=== PATIENT | male | born 1935 | race Caucasian/White ===

== ENCOUNTER → 2016-10-17 | Outpatient (REF) | payer MEDICARE ==
[2016-10-17 19:22] LABS: ALBUMIN 3.9 GM/DL (3.2-5.2); ALBUMIN/GLOBULIN RATIO 1.11 (1.00-1.93); ALKALINE PHOSPHATASE 50 U/L (45-117); ALT/SGPT 73 U/L (12-78); ANION GAP 7 MEQ/L (8-16); AST/SGOT 49 U/L (15-37); BILIRUBIN,TOTAL 0.6 MG/DL (0.2-1.0); BLOOD UREA NITROGEN 15 MG/DL (7-18); CALCIUM LEVEL 9.8 MG/DL (8.8-10.2); CARBON DIOXIDE LEVEL 28 MEQ/L (21-32); CHLORIDE LEVEL 105 MEQ/L (98-107); CHOLESTEROL LEVEL 180 MG/DL (<200); CREATININE FOR GFR 1.05 MG/DL (0.70-1.30); FERRITIN 38 NG/ML (26-388); GLOMERULAR FILTRATION RATE > 60.0 (>35); GLUCOSE, FASTING 101 MG/DL (83-110); PERCENT SATURATION 33.7 % (19.7-37.4); POTASSIUM SERUM 4.7 MEQ/L (3.5-5.1); SODIUM LEVEL 140 MEQ/L (136-145); TOTAL IRON BINDING CAPACITY 353 UG/DL (250-450); TOTAL PROTEIN 7.4 GM/DL (6.4-8.2); TRIGLYCERIDES LEVEL 202 MG/DL (<150)
[2016-10-17 19:33] LABS: MEAN CORPUSCULAR HEMOGLOBIN 34.2 pg (27.0-33.0); MEAN CORPUSCULAR HGB CONC 33.2 g/dl (32.0-36.5); MEAN CORPUSCULAR VOLUME 102.8 fl (80.0-96.0); RED CELL DISTRIBUTION WIDTH 12.8 % (11.5-14.5); RETIC HEMOGLOBIN CONTENT CHr 33.4 PG (24-36); RETICULOCYTE % ADVIA2120 2.6 % (0.5-1.5); WHITE BLOOD COUNT 4.9 K/mm3 (4.0-10.0)
[2016-10-23 00:11] LABS: FREE KAPPA LIGHT CHAINS SERUM 19.28 mg/L (3.30-19.40); FREE LAMBDA LIGHT CHAINS SERUM 17.51 mg/L (5.71-26.30); KAPPA/LAMBDA RATIO SERUM 1.1 (0.26-1.65)
== END ==
LOC: M SFHCCAPE 07:42
PROVIDERS: ATTEND Family Medicine
DX: D50.9 Iron deficiency anemia, unspecified (principal); E78.2 Mixed hyperlipidemia; E74.9 Disorder of carbohydrate metabolism, unspecified; Z12.5 Encounter for screening for malignant neoplasm of prostate; Z79.899 Other long term (current) drug therapy
CPT/HCPCS: 36415; 80053; 80061; 82728; 83036; 83550; 83883; 85027; 85046; G0103

== ENCOUNTER → 2016-12-13 | Outpatient (CLI) | payer MEDICARE ==
[~2016-12-13] VITALS: Ht 177.8 cm; Wt 97.5 kg
[~2016-12-13] MED LIST: ASPI81TA85 PO; COLE625TAB PO; FLUTISP; LIDOCAINE 2% INJ 100 MG/5 ML SDV (FOR ANES.) As Ordered ONE; MULT1TAB10 PO; NS 1,000 ML IV ONE; PANT40TA2 PO; PROPOFOL 200 MG/20 ML VIAL As Ordered ONE; VITA500T3 PO; fentaNYL 100 MCG/2 ML INJECTION (J3010) As Ordered ONE
--- NOTE | 2016-12-13 10:27 | ROOR ---
Patient Name: Maxi Briceño Procedure Date: 12/13/2016 10:11 AM Date of : 1935 Age: 81 Room: [facility] Gender: Male Note Status: Finalized Procedure: Upper GI endoscopy Indications: Iron deficiency anemia Providers: Derrek Burns MD Referring MD: Jamie Paris MD Requesting Provider: Medicines: Monitored Anesthesia Care Complications: No immediate complications. Procedure: Pre-Anesthesia Assessment: - The heart rate, respiratory rate, oxygen saturations, blood pressure, adequacy of pulmonary ventilation, and response to care were monitored throughout the procedure. The Endoscope was introduced through the mouth, and advanced to the second part of duodenum. The upper GI endoscopy was accomplished without difficulty. The patient tolerated the procedure well. Findings: The Z-line was regular and was found 35 cm from the incisors. A medium-sized hiatal hernia was present. No other significant abnormalities were identified in a careful examination of the stomach. The exam of the duodenum was otherwise normal. Impression: - Z-line regular, 35 cm from the incisors. - Medium-sized hiatal hernia. - No specimens collected. - The examination was otherwise normal. Recommendation: - Patient has a contact number available for emergencies. The signs and symptoms of potential delayed complications were discussed with the patient. Return to normal activities tomorrow. Written discharge instructions were provided to the patient. - Discharge patient to home. - Follow an antireflux regimen. - Continue present medications. - Return to referring physician. - The findings and recommendations were discussed with the patient's family. Derrek Burns MD Derrek Burns MD 12/13/2016 10:26:42 AM This report has been signed electronically. Number of Addenda: 0 Note Initiated On: 12/13/2016 10:11 AM Estimated Blood Loss: Estimated blood loss: none.
--- NOTE | 2016-12-13 10:41 | ROOR ---
Patient Name: Maxi Briceño Procedure Date: 12/13/2016 10:11 AM Date of : 1935 Age: 81 Room: [facility] Gender: Male Note Status: Finalized Procedure: Total Colonoscopy to Cecum Indications: Iron deficiency anemia Providers: Derrek Burns MD Referring MD: Jamie Paris MD Requesting Provider: Medicines: Monitored Anesthesia Care Complications: No immediate complications. Procedure: Pre-Anesthesia Assessment: - The heart rate, respiratory rate, oxygen saturations, blood pressure, adequacy of pulmonary ventilation, and response to care were monitored throughout the procedure. The Colonoscope was introduced through the anus and advanced to the cecum, identified by appendiceal orifice and ileocecal valve. The colonoscopy was performed without difficulty. The patient tolerated the procedure well. The quality of the bowel preparation was excellent. Findings: The perianal and digital rectal examinations were normal. Non-bleeding internal hemorrhoids were found during retroflexion. The hemorrhoids were small and Grade I (internal hemorrhoids that do not prolapse). Multiple small and large-mouthed diverticula were found in the recto-sigmoid colon, sigmoid colon and descending colon. The exam was otherwise without abnormality on direct and retroflexion views. Impression: - Non-bleeding internal hemorrhoids. - Diverticulosis in the recto-sigmoid colon, in the sigmoid colon and in the descending colon. - The examination was otherwise normal on direct and retroflexion views. - No specimens collected. - The exam was otherwise normal to the cecum. Recommendation: - Patient has a contact number available for emergencies. The signs and symptoms of potential delayed complications were discussed with the patient. Return to normal activities tomorrow. Written discharge instructions were provided to the patient. - High fiber diet. - Discharge patient to home. - Continue present medications. - Repeat colonoscopy for symptoms only. - Return to referring physician. - The findings and recommendations were discussed with the patient's family. Derrek Burns MD Derrek Burns MD 12/13/2016 10:41:14 AM This report has been signed electronically. Number of Addenda: 0 Note Initiated On: 12/13/2016 10:11 AM Estimated Blood Loss: Estimated blood loss: none.
[2016-12-13 11:00] VITALS: BP 137/67
== END ==
LOC: M OPP 09:34
PROVIDERS: ATTEND Internal Medicine Gastroenterology
DX: Z12.11 Encounter for screening for malignant neoplasm of colon (principal); K64.0 First degree hemorrhoids; K57.30 Diverticulosis of large intestine without perforation or abscess without bleeding; D50.9 Iron deficiency anemia, unspecified; K44.9 Diaphragmatic hernia without obstruction or gangrene; K21.9 Gastro-esophageal reflux disease without esophagitis; E78.5 Hyperlipidemia, unspecified; Z85.828 Personal history of other malignant neoplasm of skin; Z87.891 Personal history of nicotine dependence; M19.90 Unspecified osteoarthritis, unspecified site; Z79.82 Long term (current) use of aspirin; Z79.899 Other long term (current) drug therapy; Z88.2 Allergy status to sulfonamides; Z88.8 Allergy status to other drugs, medicaments and biological substances
CPT/HCPCS: 43235; 45378; J3010

== ENCOUNTER → 2017-10-28 | Outpatient (REF) | payer MEDICARE ==
[2017-10-28 11:24] LABS: HEMATOCRIT 38.3 % (42.0-52.0); HEMOGLOBIN 12.5 g/dl (13.5-17.5); MEAN CORPUSCULAR HEMOGLOBIN 30.8 pg (27.0-33.0); MEAN CORPUSCULAR HGB CONC 32.6 g/dl (32.0-36.5); MEAN CORPUSCULAR VOLUME 94.3 fl (80.0-96.0); PLATELET COUNT, AUTOMATED 210 10^3/uL (150-450); RED BLOOD COUNT 4.06 10^6/uL (4.30-6.10); RED CELL DISTRIBUTION WIDTH 12.1 % (11.5-14.5); RETIC HEMOGLOBIN EQUIVALENT 33.7 pg (24-36); RETICULOCYTE # 77.1 10^9/L (17-77); RETICULOCYTE % 1.9 % (0.5-1.5); WHITE BLOOD COUNT 6.2 10^3/uL (4.0-10.0)
[2017-10-28 11:31] LABS: ALBUMIN 3.6 GM/DL (3.2-5.2); ALBUMIN/GLOBULIN RATIO 0.97 (1.00-1.93); ALKALINE PHOSPHATASE 46 U/L (45-117); ALT/SGPT 51 U/L (12-78); ANION GAP 6 MEQ/L (8-16); AST/SGOT 36 U/L (7-37); BILIRUBIN,TOTAL 0.4 MG/DL (0.2-1.0); BLOOD UREA NITROGEN 13 MG/DL (7-18); CALCIUM LEVEL 9.6 MG/DL (8.8-10.2); CARBON DIOXIDE LEVEL 29 MEQ/L (21-32); CHLORIDE LEVEL 108 MEQ/L (98-107); CHOLESTEROL LEVEL 183 MG/DL (<200); CHOLESTEROL RISK RATIO 4.463 (<5); CREATININE FOR GFR 1.01 MG/DL (0.70-1.30); FERRITIN 14 NG/ML (26-388); GLOMERULAR FILTRATION RATE > 60.0 (>35); GLUCOSE, FASTING 86 MG/DL (70-100); HDL CHOLESTEROL 41 MG/DL (>40); IRON (FE) 46 UG/DL (65-175); LDL CHOLESTEROL 108.6 MG/DL (<100); NON-HDL-C 142 MG/DL; PERCENT SATURATION 12.2 % (19.7-50.0); SODIUM LEVEL 143 MEQ/L (136-145); TOTAL IRON BINDING CAPACITY 377 UG/DL (250-450); TOTAL PROTEIN 7.3 GM/DL (6.4-8.2); TRIGLYCERIDES LEVEL 167 MG/DL (<150)
== END ==
LOC: M SFHCCLAY 07:36
DX: D64.9 Anemia, unspecified (principal); E78.2 Mixed hyperlipidemia
CPT/HCPCS: 83550

== ENCOUNTER → 2018-09-17 | Outpatient (CLI) | payer MEDICARE ==
[~2018-09-17] MED LIST changes: +CVS1CAP2 PO; +ISOVUE-370 76% 125ML VIAL (Q9967 PER ML) As Ordered ONE; -LIDOCAINE 2% INJ 100 MG/5 ML SDV (FOR ANES.) As Ordered ONE; +LORA-674 PO; +MULT-40 PO; -NS 1,000 ML IV ONE; +OCUVTAB PO; -PANT40TA2 PO; +PANT40TA3 PO; -PROPOFOL 200 MG/20 ML VIAL As Ordered ONE; +RANI15TA PO; +RANI1SYP PO; -fentaNYL 100 MCG/2 ML INJECTION (J3010) As Ordered ONE
[2018-09-17 13:56] LABS: BLOOD UREA NITROGEN 12 MG/DL (7-18); GLOMERULAR FILTRATION RATE > 60.0 (>35)
--- NOTE | 2018-09-17 15:22 | REP ---
CT NECK WITH CONTRAST: HISTORY: Left ovarian cyst. CONTRAST: Isovue 370, 75 mL. The naso-, noelle-, and hypopharynx, larynx and subglottic trachea are normal in appearance. There is fatty replacement of the parotid glands. The submandibular and thyroid glands are normal in size and density. Small lymph nodes less than 1 cm in size are present in the internal jugular chains, posterior triangles, submandibular and submental areas. Degenerative change is present in the cervical spine. The lung apices are clear. Minimal mucosal thickening is present in the maxillary sinuses. IMPRESSION: There is no neck mass or adenopathy. Electronically Signed by Angel Owens MD 09/17/2018 03:24 P
== END ==
LOC: M RAD 12:43
PROVIDERS: ATTEND Otolaryngology
DX: R49.0 Dysphonia (principal); H60.12 Cellulitis of left external ear; M50.30 Other cervical disc degeneration, unspecified cervical region; J32.0 Chronic maxillary sinusitis
CPT/HCPCS: 36415; 70491; 82565; 84520; Q9967

== ENCOUNTER 2018-09-30 11:11 | Day surgery (SDC) | payer MEDICARE ==
[~2018-09-30] VITALS: Ht 177.8 cm; Wt 106.1 kg
[~2018-09-30 11:11] MED LIST changes: -ISOVUE-370 76% 125ML VIAL (Q9967 PER ML) As Ordered ONE; +LR 1,000 ML IV ONE; +dexameTHASONE 4 MG/ML 1ML VIAL (J1100) IV ONE
[2018-09-30] MEDS ORDERED: dexameTHASONE 4 MG/ML 1ML VIAL (J1100) As Ordered ONE (11:43)
[2018-09-30] MEDS ORDERED: LIDOCAINE 2% INJ 100 MG/5 ML SDV (FOR ANES.) As Ordered ONE (11:43)
[2018-09-30] MEDS ORDERED: ONDANSETRON 4MG/2ML VIAL (J2405) As Ordered ONE (11:43)
[2018-09-30] MEDS ORDERED: ROCURONIUM BROMIDE 50 MG/5 ML VIAL As Ordered ONE (11:43)
[2018-09-30] MEDS ORDERED: PROPOFOL 200 MG/20 ML VIAL As Ordered ONE (11:43)
[2018-09-30] MEDS ORDERED: METHYLENE BLUE 0.5% (5MG/ML) 10 ML AMP (PROVAYBLUE)(Q9968 PER 1MG) As Ordered ONE (12:07)
[2018-09-30] MEDS ORDERED: OXYMETAZOLINE NASAL SPRAY (AFRIN) As Ordered ONE (12:08)
[2018-09-30] MEDS ORDERED: LIDOCAINE W/EPINEPHRINE 1% 20ML VIAL As Ordered ONE (12:08)
[2018-09-30] MEDS ORDERED: fentaNYL 100 MCG/2 ML INJECTION (J3010) As Ordered ONE ×2 (12:13→13:10)
[2018-09-30] MEDS ORDERED: ePHEDrine SULFATE 25 MG/5 ML(5MG/ML) SYRINGE As Ordered ONE (12:48)
[2018-09-30] MEDS ORDERED: BACITRACIN OINT 30GM As Ordered ONE (12:58)
[2018-09-30] MEDS ORDERED: NEOSTIGMINE 10 MG/10 ML VIAL (J2710) As Ordered ONE (13:16)
[2018-09-30] MEDS ORDERED: GLYCOPYRROLATE INJ 0.2 MG/ML 2 ML VIAL As Ordered ONE (13:16)
[2018-09-30] MEDS ORDERED: NORCO, ANEXSIA 5/325MG TABLET (HYDROcodone/ACETAMINOPHEN) PO PRN (14:15)
[2018-09-30] MEDS ORDERED: ONDANSETRON 4MG/2ML VIAL (J2405) IV PRN (14:15)
[2018-09-30] MEDS ORDERED: LR 1,000 ML IV SCH ×2 (14:15)
[2018-09-30] MEDS ORDERED: fentaNYL 100 MCG/2 ML INJECTION (J3010) IV PRN (14:15)
[2018-09-30 14:30] VITALS: BP 141/72
--- NOTE | 2018-10-01 06:41 | RO ---
DATE OF PROCEDURE: 09/30/2018 PREPROCEDURE DIAGNOSES: 1. Cutaneous lesion left ear lobule. 2. Dysphonia. 3. Leukoplakia left vocal cord. POSTPROCEDURE DIAGNOSES: 1. Cutaneous lesion left ear lobule. 2. Dysphonia. 3. Leukoplakia left vocal cord. PROCEDURE: 1. Excision of the left ear cutaneous lesion 1 cm x 0.8 cm. 2. Direct suspension micro laryngoscopy with biopsy of the left vocal cord. SURGEON: Dr. Milton Browning. JEWELRY BENCH MOLDER: ANESTHESIA: General. CLINICAL PREAMBLE: This is an 83-year-old man who presented to the office with a history of dysphonia persistent for more than a month. He also noted to have a skin lesion over the margin of the left ear lobule. Flexible laryngoscopy examination revealed leukoplakia of the left vocal cord. Management options including surgery listed have been discussed. Patient understood and consented to the procedure. DESCRIPTION OF PROCEDURE: Patient was identified in preop holding and had the left ear marked. He was brought to the operating room in stable condition. In the supine position on the operating room table, the patient received general anesthesia followed by orotracheal intubation without incident. The patient prepped and draped in the usual manner for the excision of the left ear lobule skin lesion. The lesion was noted to be along the margin of the left ear lobule. The affected area was infiltrated with 1% lidocaine with 1:100,000 epinephrine. The excision was performed at the site of the mass including the margin was measuring 1 cm x 0.8 cm. Hemostasis achieved using bipolar electrocautery. 5-0 nylon sutures were used to close the incision. Bacitracin ointment was applied and Telfa dressing was applied over the era lobule. At this time, patient was redraped and prepped for the direct suspension micro laryngoscopy with biopsy procedure. Bimanual palpation of the oral tongue, base of tongue, lateral posterior pharyngeal wall was carried out and no discrete nodule or mass was palpated. Upper dentition was protected using the tooth guard. Using the Dedo-Pilling laryngoscope, examination of the mucosa was carried out on the oral tongue, base of tongue, lateral posterior pharyngeal wall, supraglottis, piriform sinuses, postcricoid region and aryepiglottic fold. No lesion was noted on these structures. Examination of the glossis revealed leukoplakia over the anterior two-thirds of the vocal cord. The Dedo-Pilling laryngoscope was suspended on the Jj stent. Further examination revealed no evidence of the leukoplakia crossing midline to the contralateral right vocal cord. The leukoplakia lesion appeared to be extended all the way to the anterior commissure area, however. At this time, biopsies were obtained from the left vocal cord. Hemostasis achieved. At the end of the procedure, sponge, instrument counts were correct. No complications encountered during the procedure. Estimated blood loss was less than 1 mL. General anesthesia was reversed and the patient was extubated and brought to the recovery room instable condition.
== END 2018-09-30 15:21 | disposition home or self-care (01) ==
LOC: M SDC 11:11
PROVIDERS: ATTEND Otolaryngology
DX: R49.0 Dysphonia (principal); J38.3 Other diseases of vocal cords; H61.892 Other specified disorders of left external ear; M12.9 Arthropathy, unspecified; E78.00 Pure hypercholesterolemia, unspecified; K44.9 Diaphragmatic hernia without obstruction or gangrene; K21.9 Gastro-esophageal reflux disease without esophagitis; Z88.2 Allergy status to sulfonamides; Z88.8 Allergy status to other drugs, medicaments and biological substances; Z79.899 Other long term (current) drug therapy; Z79.82 Long term (current) use of aspirin; Z86.19 Personal history of other infectious and parasitic diseases; Z87.891 Personal history of nicotine dependence
CPT/HCPCS: 11441; 31535; 88305; J1100; J2405; J2710; J3010; Q9968

== ENCOUNTER → 2018-11-19 | Outpatient (REF) | payer MEDICARE ==
[~2018-11-19] MED LIST changes: -LR 1,000 ML IV ONE; -dexameTHASONE 4 MG/ML 1ML VIAL (J1100) IV ONE
[2018-11-19 16:25] LABS: BASO % 0.2 % (0.0-1.0); EOS # 0.4 10^3/uL (0.0-0.50); EOS % 4.3 % (0.0-3.0); HEMOGLOBIN 14.6 g/dl (13.5-17.5); LYMPH # 1.6 10^3/uL (1.5-4.5); LYMPH % 19.3 % (24.0-44.0); MEAN CORPUSCULAR HEMOGLOBIN 33.2 pg (27.0-33.0); MEAN CORPUSCULAR HGB CONC 33.2 g/dl (32.0-36.5); NEUTROPHILS # 5.2 10^3/uL (1.8-7.7); NEUTROPHILS % 63.8 % (36.0-66.0); PLATELET COUNT, AUTOMATED 226 10^3/uL (150-450); WHITE BLOOD COUNT 8.1 10^3/uL (4.0-10.0)
[2018-11-19 16:27] LABS: ALBUMIN 4.2 GM/DL (3.2-5.2); ALT/SGPT 64 U/L (12-78); BILIRUBIN,TOTAL 0.4 MG/DL (0.2-1.0); BLOOD UREA NITROGEN 14 MG/DL (7-18); CALCIUM LEVEL 10.8 MG/DL (8.8-10.2); CARBON DIOXIDE LEVEL 30 MEQ/L (21-32); CHLORIDE LEVEL 105 MEQ/L (98-107); CREATININE FOR GFR 1.03 MG/DL (0.70-1.30); GLOMERULAR FILTRATION RATE > 60.0 (>35); GLUCOSE, FASTING 85 MG/DL (70-100); POTASSIUM SERUM 5.3 MEQ/L (3.5-5.1); SODIUM LEVEL 139 MEQ/L (136-145); TOTAL PROTEIN 7.7 GM/DL (6.4-8.2)
== END ==
LOC: M SFHCADAM 13:34
PROVIDERS: ATTEND Family Medicine
DX: Z01.818 Encounter for other preprocedural examination (principal)
CPT/HCPCS: 80053; 85025; G0463

== ENCOUNTER 2018-11-26 10:44 | Day surgery (SDC) | payer MEDICARE ==
[~2018-11-26] VITALS: Ht 177.8 cm; Wt 104.4 kg
[~2018-11-26 10:44] MED LIST changes: +CYAN500T8 PO; +LIDOCAINE 1% MDV 20ML VIAL SQ PRN; +LR 1,000 ML IV ONE; -VITA500T3 PO; +dexameTHASONE 4 MG/ML 1ML VIAL (J1100) IV ONE
[2018-11-26] MEDS ORDERED: propofoL 200 MG/20 ML VIAL As Ordered ONE (12:29)
[2018-11-26] MEDS ORDERED: REMIFENTANIL 1MG 3ML VIAL As Ordered ONE (12:29)
[2018-11-26] MEDS ORDERED: MIDAZOLAM INJ 2 MG/2 ML VIAL (J2250) As Ordered ONE (12:31)
[2018-11-26] MEDS ORDERED: fentaNYL 100 MCG/2 ML INJECTION (J3010) As Ordered ONE (12:31)
[2018-11-26] MEDS ORDERED: LIDOCAINE 2% INJ 100 MG/5 ML SDV (FOR ANES.) As Ordered ONE (12:32)
[2018-11-26] MEDS ORDERED: ROCURONIUM BROMIDE 50 MG/5 ML VIAL As Ordered ONE (12:32)
[2018-11-26] MEDS ORDERED: dexameTHASONE 4 MG/ML 1ML VIAL (J1100) As Ordered ONE (12:34)
[2018-11-26] MEDS ORDERED: ONDANSETRON 4MG/2ML VIAL (J2405) As Ordered ONE (12:35)
[2018-11-26] MEDS ORDERED: OXYMETAZOLINE NASAL SPRAY (AFRIN) As Ordered ONE (13:50)
[2018-11-26] MEDS ORDERED: METHYLENE BLUE 0.5% (5MG/ML) 10 ML AMP (PROVAYBLUE)(Q9968 PER 1MG) As Ordered ONE (13:50)
[2018-11-26] MEDS ORDERED: LIDOCAINE W/EPINEPHRINE 1% 20ML VIAL As Ordered ONE (13:50)
[2018-11-26] MEDS ORDERED: GLYCOPYRROLATE INJ 0.2 MG/ML 2 ML VIAL As Ordered ONE (14:09)
[2018-11-26] MEDS ORDERED: ePHEDrine SULFATE 25 MG/5 ML(5MG/ML) SYRINGE As Ordered ONE ×2 (14:34→15:01)
[2018-11-26] MEDS ORDERED: SUGAMMADEX SODIUM 500 MG/5 ML VIAL (BRIDION) As Ordered ONE (14:59)
[2018-11-26] MEDS ORDERED: BACITRACIN OINT 30GM As Ordered ONE (15:21)
[2018-11-26] MEDS ORDERED: oxyCODONE 5MG TAB PO PRN (16:30)
[2018-11-26] MEDS ORDERED: fentaNYL 100 MCG/2 ML INJECTION (J3010) IV PRN (16:30)
[2018-11-26] MEDS ORDERED: LR 1,000 ML IV SCH ×2 (16:30)
[2018-11-26] MEDS ORDERED: ONDANSETRON 4MG/2ML VIAL (J2405) IV PRN (16:30)
[2018-11-26 17:02] VITALS: BP 160/85
--- NOTE | 2019-01-06 14:00 | RO ---
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 PROCEDURE PERFORMED: 1. CO2 laser ablation of the right vocal cord carcinoma in situ. 2. Reexcision of the squamous cell carcinoma of the left ear lobule, 2 x 1 cm. SURGEON: Milton Browning MD HANDBELL CHOIR DIRECTOR: ANESTHESIA: General. CLINICAL PREAMBLE: This 83-year-old man has had a biopsy done to the left vocal cord, which showed evidence of carcinoma in situ in September 2018. Excision of the left ear lobule showed carcinoma involving the deep margin. Management options including the surgery listed above, have been discussed with the patient. He understood and consented to the procedure. DESCRIPTION OF OPERATION/OR NARRATION: Patient was identified in preop holding and brought to the operating room in stable condition. In supine position on the operating room table, the patient received general anesthesia followed by orotracheal intubation with a laser safe tracheal intubation tube. The patient was prepped and draped in the usual fashion for laser procedure. Both eyes were protected using wet sponges. The entire upper chest and the head and neck region were covered using a wet towel. All of the personnel in the operating room wore the laser safe goggle for eye protection. The patient's upper dentition was protected. The Dedo-Pilling laryngoscope was introduced into the oral cavity to allow visualization of the of the vocal cords. The Dedo-Pilling laryngoscope was then suspended on the Jj stand. Using the flexible fiberoptic system by the omni laser, the CO2 laser was set in 6 brice continuous mode. The left vocal cord was clearly visualized. The subglottic region was protected using the cottonoid pledgets soaked in Afrin solution. The left vocal cord mucosa ws then successfully ablated using the CO2 laser care taken to ensure to injury to the contralateral anterior commissure of the right vocal cord. Complete hemostasis was observed at the end of this portion of the procedure. The Dedo-Pilling laryngoscope was then taken down and withdrawn from the oral cavity. The patient was then prepped and draped in the usual fashion for reexcision of the left ear lobule residual squamous cell carcinoma. The ear lobule was infiltrated with 1% lidocaine with 1:100,000 epinephrine. The excision was then performed. Specimen measured 2 x 1 cm including margins. The incision was then approximated using #5-0 Prolene. Bacitracin was applied over the surgical site. At the end of the procedure sponge and instrument counts were correct. No complications were encountered. Estimated blood loss was less than 5 mL. General anesthesia was reversed and the patient was extubated and brought to the recovery room in stable condition. ELICEO
== END 2018-11-26 17:03 | disposition home or self-care (01) ==
LOC: M SDC 10:44
PROVIDERS: ATTEND Otolaryngology
DX: D02.0 Carcinoma in situ of larynx (principal); C44.229 Squamous cell carcinoma of skin of left ear and external auricular canal; E78.00 Pure hypercholesterolemia, unspecified; K44.9 Diaphragmatic hernia without obstruction or gangrene; K57.30 Diverticulosis of large intestine without perforation or abscess without bleeding; K21.9 Gastro-esophageal reflux disease without esophagitis; M12.9 Arthropathy, unspecified; R06.83 Snoring; Z88.2 Allergy status to sulfonamides; Z79.899 Other long term (current) drug therapy; Z79.82 Long term (current) use of aspirin; Z85.828 Personal history of other malignant neoplasm of skin; Z87.891 Personal history of nicotine dependence
CPT/HCPCS: 11640; 31572; 36415; 84132; 88305; J1100; J2250; J2405; J3010; Q9968

== ENCOUNTER → 2018-12-31 | Outpatient (REF) | payer MEDICARE ==
[~2018-12-31] MED LIST changes: -LIDOCAINE 1% MDV 20ML VIAL SQ PRN; -LR 1,000 ML IV ONE; -dexameTHASONE 4 MG/ML 1ML VIAL (J1100) IV ONE
[2018-12-31 17:01] LABS: HEMATOCRIT 42.4 % (42.0-52.0); HEMOGLOBIN 13.7 g/dl (13.5-17.5); MEAN CORPUSCULAR HEMOGLOBIN 32.2 pg (27.0-33.0); MEAN CORPUSCULAR HGB CONC 32.3 g/dl (32.0-36.5); MEAN CORPUSCULAR VOLUME 99.5 fl (80.0-96.0); PLATELET COUNT, AUTOMATED 204 10^3/uL (150-450); RED BLOOD COUNT 4.26 10^6/uL (4.30-6.10); WHITE BLOOD COUNT 5.8 10^3/uL (4.0-10.0)
[2018-12-31 17:24] LABS: ALBUMIN 3.8 GM/DL (3.2-5.2); ALT/SGPT 51 U/L (12-78); BILIRUBIN,TOTAL 0.8 MG/DL (0.2-1.0); BLOOD UREA NITROGEN 14 MG/DL (7-18); CALCIUM LEVEL 10.1 MG/DL (8.8-10.2); CARBON DIOXIDE LEVEL 28 MEQ/L (21-32); CHLORIDE LEVEL 104 MEQ/L (98-107); CHOLESTEROL LEVEL 193 MG/DL (<200); CHOLESTEROL RISK RATIO 4.488 (<5); CREATININE FOR GFR 1.04 MG/DL (0.70-1.30); FERRITIN 22 NG/ML (26-388); GLOMERULAR FILTRATION RATE > 60.0 (>35); GLUCOSE, FASTING 86 MG/DL (70-100); HDL CHOLESTEROL 43 MG/DL (>40); IRON (FE) 120 UG/DL (65-175); LDL CHOLESTEROL 101 MG/DL (<100); NON-HDL-C 150 MG/DL; PERCENT SATURATION 32.3 % (19.7-50.0); POTASSIUM SERUM 4.5 MEQ/L (3.5-5.1); SODIUM LEVEL 140 MEQ/L (136-145); TOTAL IRON BINDING CAPACITY 371 UG/DL (250-450); TOTAL PROTEIN 7.2 GM/DL (6.4-8.2); TRIGLYCERIDES LEVEL 244 MG/DL (<150)
[2018-12-31 18:11] LABS: HEMOGLOBIN A1c 5.8 %
== END ==
LOC: M SFHCCAPE 07:45
PROVIDERS: ATTEND Family Medicine
DX: E78.2 Mixed hyperlipidemia (principal); D50.9 Iron deficiency anemia, unspecified; E74.9 Disorder of carbohydrate metabolism, unspecified

== ENCOUNTER → 2019-06-14 | Outpatient (REF) | payer MEDICARE ==
[2019-06-14 17:02] LABS: ALBUMIN 3.8 GM/DL (3.2-5.2); ALT/SGPT 49 U/L (12-78); BILIRUBIN,TOTAL 0.3 MG/DL (0.2-1.0); BLOOD UREA NITROGEN 17 MG/DL (7-18); CALCIUM LEVEL 10.3 MG/DL (8.8-10.2); CARBON DIOXIDE LEVEL 28 MEQ/L (21-32); CHLORIDE LEVEL 106 MEQ/L (98-107); CREATININE FOR GFR 1.19 MG/DL (0.70-1.30); GLOMERULAR FILTRATION RATE > 60.0 (>35); GLUCOSE, FASTING 89 MG/DL (70-100); POTASSIUM SERUM 4.8 MEQ/L (3.5-5.1); SODIUM LEVEL 140 MEQ/L (136-145); TOTAL PROTEIN 7.5 GM/DL (6.4-8.2)
== END ==
LOC: M SFHCCAPE 09:40
PROVIDERS: ATTEND Physician Assistant
DX: E78.2 Mixed hyperlipidemia (principal); E74.9 Disorder of carbohydrate metabolism, unspecified

== ENCOUNTER → 2019-08-23 | Outpatient (REF) | payer MEDICARE ==
[2019-08-23 16:59] LABS: HEMATOCRIT 35.5 % (42.0-52.0); HEMOGLOBIN 10.8 g/dl (13.5-17.5); MEAN CORPUSCULAR HEMOGLOBIN 27.6 pg (27.0-33.0); MEAN CORPUSCULAR HGB CONC 30.4 g/dl (32.0-36.5); MEAN CORPUSCULAR VOLUME 90.8 fl (80.0-96.0); PLATELET COUNT, AUTOMATED 258 10^3/uL (150-450); RED BLOOD COUNT 3.91 10^6/uL (4.30-6.10); WHITE BLOOD COUNT 5.7 10^3/uL (4.0-10.0)
[2019-08-23 17:07] LABS: ALBUMIN 4.1 GM/DL (3.2-5.2); ALT/SGPT 53 U/L (12-78); BILIRUBIN,TOTAL 0.3 MG/DL (0.2-1.0); BLOOD UREA NITROGEN 17 MG/DL (7-18); CALCIUM LEVEL 9.5 MG/DL (8.8-10.2); CARBON DIOXIDE LEVEL 29 MEQ/L (21-32); CHLORIDE LEVEL 105 MEQ/L (98-107); CREATININE FOR GFR 1.04 MG/DL (0.70-1.30); GLOMERULAR FILTRATION RATE > 60.0 (>35); GLUCOSE, FASTING 95 MG/DL (70-100); POTASSIUM SERUM 4.7 MEQ/L (3.5-5.1); SODIUM LEVEL 139 MEQ/L (136-145); TOTAL PROTEIN 7.6 GM/DL (6.4-8.2)
== END ==
LOC: M SFHCCAPE 09:47
PROVIDERS: ATTEND Family Medicine
DX: E78.2 Mixed hyperlipidemia (principal); E74.9 Disorder of carbohydrate metabolism, unspecified

== ENCOUNTER → 2019-08-26 | Outpatient (REF) | payer MEDICARE ==
[2019-08-26 16:41] LABS: CHOLESTEROL RISK RATIO 4.756 (<5)
== END ==
LOC: M SFHCADAM 11:30
PROVIDERS: ATTEND Family Medicine
DX: R30.0 Dysuria (principal); E78.2 Mixed hyperlipidemia

== ENCOUNTER → 2019-08-26 | Outpatient (CLI) | payer MEDICARE ==
--- NOTE | 2019-08-26 12:54 | REP ---
Sacrum and coccyx three views: The sacroiliac articulations are unremarkable. There is a degenerative calcification in the pubic symphysis. The no sacral fracture or listhesis is identified. There is degenerative disc disease in the visualized lower lumbar spine. Impression: Negative sacrum and coccyx. Degenerative calcification in the pubic symphysis. 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 Electronically Signed by Brien Velasquez MD 08/26/2019 12:44 P
== END ==
LOC: M ADAMS 11:40
PROVIDERS: ATTEND Family Medicine
DX: M51.36 Other intervertebral disc degeneration, lumbar region (principal); M53.3 Sacrococcygeal disorders, not elsewhere classified; R30.0 Dysuria; E78.2 Mixed hyperlipidemia

== ENCOUNTER → 2019-10-20 | Outpatient (CLI) | payer MEDICARE ==
[~2019-10-20] MED LIST changes: -ASPI81TA85 PO; +ASPI81TA86 PO; +CYAN500T14 PO; -CYAN500T8 PO; +ECOT81TA5 PO; +EZET10TA21 PO; +FISH1000 PO; +FLON1SPR; +OMEP10CASR PO; +PANT40TA29 PO; -PANT40TA3 PO
--- NOTE | 2019-10-20 15:17 | REP ---
CHEST, TWO VIEWS: Two views of the chest performed and compared to a prior study of 11/23/2015. There is mild interstitial fibrotic change in the lower lung zones which appear stable. No superimposed acute infiltrate is seen. The heart is upper limits of normal in size. There is tortuosity of the thoracic aorta again noted as well as a moderate-sized hiatal hernia. The mediastinal silhouette is unchanged. Multiple metallic fragments are seen in the soft tissues of the left chest wall. There are mild degenerative changes of the spine. IMPRESSION: Stable chronic findings with no evidence of acute pulmonary disease. Electronically Signed by Brien Martin MD 10/20/2019 03:20 P
== END ==
LOC: M ADAMS 11:02
PROVIDERS: ATTEND Family Medicine
DX: R06.00 Dyspnea, unspecified (principal); S29.9XXA Unspecified injury of thorax, initial encounter; W19.XXXA Unspecified fall, initial encounter; Y92.9 Unspecified place or not applicable; K44.9 Diaphragmatic hernia without obstruction or gangrene; D50.9 Iron deficiency anemia, unspecified; R53.83 Other fatigue; Z79.899 Other long term (current) drug therapy
CPT/HCPCS: 71046; 80053; 82607; 82728; 82746; 83036; 83550; 84439; 84443; 85027; 85046; G0463

== ENCOUNTER → 2019-10-20 | Outpatient (REF) | payer MEDICARE ==
[~2019-10-20] MED LIST changes: +ASPI81TA85 PO; -ASPI81TA86 PO; -CYAN500T14 PO; +CYAN500T8 PO; -ECOT81TA5 PO; -EZET10TA21 PO; -FISH1000 PO; -FLON1SPR; -OMEP10CASR PO; -PANT40TA29 PO; +PANT40TA3 PO
[2019-10-20 12:55] LABS: HEMATOCRIT 36.2 % (42.0-52.0); HEMOGLOBIN 10.7 g/dl (13.5-17.5); MEAN CORPUSCULAR HEMOGLOBIN 25.8 pg (27.0-33.0); MEAN CORPUSCULAR HGB CONC 29.6 g/dl (32.0-36.5); MEAN CORPUSCULAR VOLUME 87.4 fl (80.0-96.0); PLATELET COUNT, AUTOMATED 271 10^3/uL (150-450); RED BLOOD COUNT 4.14 10^6/uL (4.30-6.10); WHITE BLOOD COUNT 6.1 10^3/uL (4.0-10.0)
[2019-10-20 13:16] LABS: HEMOGLOBIN A1c 6.2 %
[2019-10-20 13:31] LABS: ALBUMIN 3.8 GM/DL (3.2-5.2); ALT/SGPT 55 U/L (12-78); BILIRUBIN,TOTAL 0.7 MG/DL (0.2-1.0); BLOOD UREA NITROGEN 12 MG/DL (7-18); CALCIUM LEVEL 9.9 MG/DL (8.8-10.2); CARBON DIOXIDE LEVEL 27 MEQ/L (21-32); CHLORIDE LEVEL 106 MEQ/L (98-107); CREATININE FOR GFR 0.98 MG/DL (0.70-1.30); FERRITIN 14 NG/ML (26-388); FOLATE > 24.0 NG/ML (>5.4); FREE T4 0.98 NG/DL (0.76-1.46); GLOMERULAR FILTRATION RATE > 60.0 (>35); GLUCOSE, FASTING 82 MG/DL (70-100); IRON (FE) 33 UG/DL (65-175); PERCENT SATURATION 7.6 % (19.7-50.0); POTASSIUM SERUM 5.2 MEQ/L (3.5-5.1); SODIUM LEVEL 140 MEQ/L (136-145); TOTAL IRON BINDING CAPACITY 435 UG/DL (250-450); TOTAL PROTEIN 7.6 GM/DL (6.4-8.2); VITAMIN B12 LEVEL 424 PG/ML (247-911)
== END ==
LOC: M SFHCADAM 10:52
PROVIDERS: ATTEND Family Medicine
DX: D50.9 Iron deficiency anemia, unspecified (principal); R06.00 Dyspnea, unspecified; R53.83 Other fatigue; Z79.899 Other long term (current) drug therapy

== ENCOUNTER → 2019-11-18 | Outpatient (REF) | payer MEDICARE ==
[2019-11-18 12:58] LABS: HEMATOCRIT 42.5 % (42.0-52.0); HEMOGLOBIN 13.1 g/dl (13.5-17.5); MEAN CORPUSCULAR HEMOGLOBIN 28.2 pg (27.0-33.0); MEAN CORPUSCULAR HGB CONC 30.8 g/dl (32.0-36.5); MEAN CORPUSCULAR VOLUME 91.6 fl (80.0-96.0); PLATELET COUNT, AUTOMATED 211 10^3/uL (150-450); RED BLOOD COUNT 4.64 10^6/uL (4.30-6.10); WHITE BLOOD COUNT 5.1 10^3/uL (4.0-10.0)
[2019-11-18 13:29] LABS: PERCENT SATURATION 69.5 % (19.7-50.0)
== END ==
LOC: M SFHCADAM 10:31
PROVIDERS: ATTEND Family Medicine
DX: D50.9 Iron deficiency anemia, unspecified (principal)
CPT/HCPCS: 82728; 83550; 85027; 85046; G0463

== ENCOUNTER → 2019-12-22 | Outpatient (REF) | payer MEDICARE | LOC: M LAB REF 08:01 | PROVIDERS: ATTEND Dermatology | DX: L57.0 Actinic keratosis (principal); L82.1 Other seborrheic keratosis ==

== ENCOUNTER → 2020-02-02 | Outpatient (REF) | payer MEDICARE ==
[~2020-02-02] MED LIST changes: -ASPI81TA85 PO; +ASPI81TA86 PO; +PANT40TA29 PO; -PANT40TA3 PO
[2020-02-02 19:55] LABS: HEMATOCRIT 47.3 % (42.0-52.0); HEMOGLOBIN 15.4 g/dl (13.5-17.5); MEAN CORPUSCULAR HEMOGLOBIN 31.8 pg (27.0-33.0); MEAN CORPUSCULAR HGB CONC 32.6 g/dl (32.0-36.5); MEAN CORPUSCULAR VOLUME 97.7 fl (80.0-96.0); PLATELET COUNT, AUTOMATED 219 10^3/uL (150-450); RED BLOOD COUNT 4.84 10^6/uL (4.30-6.10); WHITE BLOOD COUNT 6.5 10^3/uL (4.0-10.0)
[2020-02-02 20:27] LABS: ALT/SGPT 48 U/L (12-78); BILIRUBIN,TOTAL 0.5 MG/DL (0.2-1.0); BLOOD UREA NITROGEN 12 MG/DL (7-18); CALCIUM LEVEL 10.1 MG/DL (8.8-10.2); CARBON DIOXIDE LEVEL 30 MEQ/L (21-32); CHLORIDE LEVEL 105 MEQ/L (98-107); CHOLESTEROL LEVEL 216 MG/DL (<200); CHOLESTEROL RISK RATIO 5.142 (<5); CREATININE FOR GFR 1.03 MG/DL (0.70-1.30); FERRITIN 60 NG/ML (26-388); GLOMERULAR FILTRATION RATE > 60.0 (>35); GLUCOSE, FASTING 118 MG/DL (70-100); HDL CHOLESTEROL 42 MG/DL (>40); IRON (FE) 134 UG/DL (65-175); LDL CHOLESTEROL 139 MG/DL (<100); NON-HDL-C 174 MG/DL; PERCENT SATURATION 41.2 % (19.7-50.0); SODIUM LEVEL 137 MEQ/L (136-145); TOTAL IRON BINDING CAPACITY 325 UG/DL (250-450); TOTAL PROTEIN 7.8 GM/DL (6.4-8.2); TRIGLYCERIDES LEVEL 176 MG/DL (<150)
== END ==
LOC: M LABDRWAD 17:07
PROVIDERS: ATTEND Family Medicine
DX: D50.9 Iron deficiency anemia, unspecified (principal); E78.5 Hyperlipidemia, unspecified
CPT/HCPCS: 36415; 80053; 80061; 82728; 83550; 85027; G0463

== ENCOUNTER → 2020-06-23 | Outpatient (CLI) | payer MEDICARE ==
[~2020-06-23] MED LIST changes: +CYAN500T14 PO; -CYAN500T8 PO; +ECOT81TA5 PO; +FLON1SPR
== END ==
LOC: M LABSMTC 11:38
PROVIDERS: ATTEND Anesthesiology
DX: Z01.812 Encounter for preprocedural laboratory examination (principal); Z11.52 Encounter for screening for COVID-19

== ENCOUNTER 2020-06-28 08:13 | Day surgery (SDC) | payer MEDICARE ==
[~2020-06-28] VITALS: Ht 177.8 cm; Wt 103.4 kg
[~2020-06-28 08:13] MED LIST changes: +LIDOCAINE 1% MDV 20ML VIAL SQ PRN; +LR 1,000 ML IV ONE; +dexameTHASONE 4 MG/ML 1ML VIAL (J1100 PER 1MG) IV ONE
--- OUTSIDE RECORDS SUMMARY | 2020-06-28 08:17 | CCD ---
Author Author [facility] Organization [facility] Address Unknown Phone Unavailable Care Team Providers Care Supervisory Civil Engineer Name Role Phone Albertina Saldana Unavailable PROBLEMS Type Condition ICD9-CM Code [id number] Code Onset Dates Condition S tatus SNOMED Code Notes Problem Gastro-esophageal reflux disease without esophagitis K21.9 Active 654344059 Problem Mixed hyperlipidemia E78.2 Active 391980183 Problem Allergic rhinitis, unspecified J30.9 Active 6 2906252 Problem Anemia, unspecified D64.9 Active 666933018 Problem Disorder of carbohydrate metabolism, 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 Active 58374644 Problem Enterocolitis due to Clostridium difficile A04.7 Active 093304146 Problem Other peripheral vertigo, unspecified ear H81.399 Active 53105160 Problem Melanocytic nevi of right upper limb, including shoulder D22.61 Active 952477786 Problem Melanocytic nevi of left upper limb, including shoulder D22.62 Active 396809593 Problem Liver disease, unspecified K76.9 Active 22713 6003 Problem Other cervical disc degeneration, 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 Active 39590643 Problem 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 Active 997845472 Problem Arthritis of right knee M17.11 Active 25924576 03606096 Problem Sacroiliac inflammation M46.1 Active 50674314 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 69470353 Problem Xerosis cutis L85.3 Active 87614633 Problem Arthritis of knee M17.10 Active 865372992 Problem Melanocytic nevi of right lower limb, including hip D22.71 Active 030809612 Problem Melanocytic nevi of left lower limb, including hip D22.72 Active 651800905 Problem Melanocytic nevi of trunk D22.5 Active 283636 002 Problem SK (seborrheic keratosis) L82.1 Active 421961 009 Problem Dermatitis of external ear L30.9 Active 98427 8005 Problem 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 Active 331236136 Problem Iron deficiency anemia, unspecified iron deficiency an emia type D50.9 Active 75132801 Problem 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 Active 130097433 Problem History of Clostridium difficile colitis Z86.19 Active 403214984 Problem Other obstructive and reflux uropathy N13.8 Ac tive 46898761 Problem Melanocytic nevi of face D22.30 Active 4015524 04 Problem Actinic keratoses L57.0 Active 564392813 Problem Lentigines L81.4 Active 971965638 Problem Medicare annual wellness visit, subsequent Z00.00 Active 442569169 ALLERGIES Allergen (clinical drug ingredient) Drug/Non Drug Allergy do cumented on EMR Reaction Allergy Type Onset Date Status naproxen Rash Non Drug Allergy Active pravastatin myalgias Non Drug Allergy Active simvastatin CPK, myalgias Non Drug Allergy Acti ve sulfa severe edema Non Drug Allergy Active ENCOUNTERS from 1935 to 2020-06-26 Encounter Location Date Provider Diagnosis [facility] [address] [place] [address] 11 Jun, 2020 [facility] ([facility]3] chavo Saldana IMMUNIZATIONS Vaccine Route Administration Date Status Influenza (18 yrs & older) Flublok IM Intramuscular Apr 08, 2019 Administered Influenza (18 yrs & older) Flublok IM Intramuscular Apr 05, 2020 Administered Influenza (High Dose 65 & up) IM Intramuscular May 23, 2016 A dministered Influenza (High Dose 65 & up) IM Intramuscular Apr 10, 2017 A dministered Influenza (18 yrs & older) Flublok IM Intramuscular Apr 07, 2018 Administered Influenza (6mo & up) Fluzone IM Intramuscular Mar 16, 2010 Ad ministered Influenza (High Dose 65 & up) IM Intramuscular May 08, 2015 A dministered Influenza (High Dose 65 & up) IM Intramuscular May 04, 2014 A dministered TDAP (VFC) 0.5mL (Boostrix) IM Intramuscular May 23, 2020 Adm inistered Pneumococcal Adult 0.5mL (Pneumovax 23) IM Intramuscular Mar 17, 2012 Administered Pneumococcal 0.5mL (Prevnar 13) IM Intramuscular May 11, 2014 Administered Influenza (6mo & up) Fluzone IM Intramuscular Apr 13, 2013 Ad ministered Influenza (6mo & up) Fluzone IM Intramuscular Mar 17, 2012 Ad ministered Influenza (6mo & up) Fluzone IM Intramuscular Apr 03, 2011 Ad ministered SOCIAL HISTORY Tobacco Use: Social History Observation Description Date Details (start date - stop date) Former Smoker Sex Assigned At : Social History Observation Description Sex Assigned At Unknown Education: Question Answer Notes Level of Education: Finished College Audit Question Answer Notes Total Score: 1 Interpretation: Alcohol Education Worship: Question Answer Notes Worship 21 Confucianism No mu-ism beliefs that would impact health care. Sexual Hx: Question Answer Notes Had sex in the last 12 months (vaginal, oral, or anal)? Yes Have you ever had an STD? No with Women only Use protection? No Drug and Alcohol Question Answer Notes Total Score: 0 Interpretation: No problems reported Alcohol Screening: Question Answer Notes Did you have a drink containing alcohol in the past year? Ye s Points 2 Interpretation Negative How often did you have six or more drinks on one occas ion in the past year? Never (0 points) How many drinks did you have on a typica l day when you were drinking in the past year? 1 or 2 (0 points) How often did you have a drink containing alcohol in t he past year? Two to four times a month (2 points) Tobacco Use: Question Answer Notes Are you a: former smoker SMOKED 5 CIGARETTES PER DAY STARTED AT 16YRS OLD AND QUIT AT 26YRS OLD. REASON FOR REFERRAL No Information VITAL SIGNS No information MEDICATIONS Medication SIG (Take, Route, Frequency, Duration) Notes Start Da te End Date Status Aspirin 81 MG 1 tablet Orally Daily Active Fluticasone Propionate 50 MCG/ACT 1 spray in each nost ril Nasally Once a day for 30 day(s) Active Multivitamins OTC 1 tab Orally daily Active Ezetimibe 10 MG 1 tablet Orally Once a day for 90 days Feb, Active Omeprazole 20 MG 1 capsule 30 minutes before morning meal Orally Once a day for 30 day(s) Active PROCEDURES No Information RESULTS No Results REASON FOR VISIT preop MEDICAL (GENERAL) HISTORY Type Description Date Medical History GERD/non-ulcer dyspepsia Medical History prediabetes Medical History hyperlipidemia, intolerant of statins Medical History bilateral shoulder bursitis Medical History osteopenia--DEXA [address] Medical [address] fatty liver CT 11/21, 11/29 Medical History pleurisy--hosp. 11/21, recurred 09/29, has lots of lung symptoms Medical History noncardiac chest pain (from DDD neck) Medical History BPPV--mild, chronic Medical History c difficile colitis 02/27 Medical History duodenitis on CT abd/pelvis 11/29, respon ded to Protonix Medical History BPH WITH LUTS Medical History left vocal cord SCCa in situ 10/02 Medical History iron defic anemia 11/02 Medical History echo 05/04: EF 65-70%, ao sl erosis, slight pulm HTN--essentially normal echo Surgical History colonoscopy (nl) 2001, 02/26, 11/30 Surgical History left inguinal hernia Surgical History EGD (neg) colonoscopy (nl) 11/30 Surgical History vocal cord biopsy 09/2018 Hospitalization History Pneumonia - Requiring ICU/intubation in [place] 07/2013 Goals Section No Information Health Concerns No Information MEDICAL EQUIPMENT No Information MENTAL STATUS No Information FUNCTIONAL STATUS No Information ASSESSMENTS No Information PLAN OF TREATMENT No Information Insurance Providers Payer Name Payer Address Payer Phone Insured Name Patient Relati onship to Insured Coverage Start Date Coverage End Date [employer] [facility] CLAIM DIV [address] [facility] [id number] [employer] MEDICARE Part A and B [address] [facility] [phone] [employer]
--- OUTSIDE RECORDS SUMMARY | 2020-06-28 08:18 | CCD ---
Author Author [facility] Organization 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 Active 47978135 Problem Mixed hyperlipidemia E78.2 Active 596484338 Problem Dermatitis of external ear L30.9 Active 50339 8005 Problem SK (seborrheic keratosis) L82.1 Active 445798 009 Problem Iron deficiency anemia, unspecified iron deficiency an emia type D50.9 Active 64193519 Problem History of Clostridium difficile colitis Z86.19 Active 071536808 Problem Arthritis of right knee M17.11 Active 06776753 24624159 Problem Other obstructive and reflux uropathy N13.8 Ac tive 55587975 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 12708949 Problem 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 Active 333918982 Problem Sacroiliac inflammation M46.1 Active 16845426 Problem Arthritis of knee M17.10 Active 902770755 Problem Melanocytic nevi of face D22.30 Active 7614139 04 Problem Actinic keratoses L57.0 Active 539738025 Problem Lentigines L81.4 Active 736768864 Problem Melanocytic nevi of right upper limb, including shoulder D22.61 Active 069334786 Problem Other peripheral vertigo, unspecified ear H81.399 Active 71796584 Problem Melanocytic nevi of trunk D22.5 Active 711118 002 Problem Anemia, unspecified D64.9 Active 103060082 Problem Enterocolitis due to Clostridium difficile A04.7 Active 305744979 Problem Xerosis cutis L85.3 Active 55235391 Problem Melanocytic nevi of left lower limb, including hip D22.72 Active 116817360 Problem Melanocytic nevi of right lower limb, including hip D22.71 Active 841446511 Problem Melanocytic nevi of left upper limb, including shoulder D22.62 Active 524568978 ALLERGIES Allergen (clinical drug ingredient) Drug/Non Drug Allergy do cumented on EMR Reaction Allergy Type Onset Date Status naproxen Rash Non Drug Allergy Active pravastatin myalgias Non Drug Allergy Active simvastatin CPK, myalgias Non Drug Allergy Acti ve sulfa severe edema Non Drug Allergy Active ENCOUNTERS from 1935 to 2020-04-05 Encounter Location Date Provider Diagnosis [facility] [address] [place] [address] Mar, Erick Paris Encounter for immunization Z23 IMMUNIZATIONS Vaccine Route Administration Date Status Influenza (18 yrs & older) Flublok IM Intramuscular Apr 05, 2020 Administered Influenza (High Dose 65 & up) IM Intramuscular Apr 10, 2017 A dministered Influenza (18 yrs & older) Flublok IM Intramuscular Apr 07, 2018 Administered Influenza (18 yrs & older) Flublok IM Intramuscular Apr 08, 2019 Administered Influenza (6mo & up) Fluzone IM Intramuscular Mar 16, 2010 Ad ministered Influenza (High Dose 65 & up) IM Intramuscular May 23, 2016 A dministered Influenza (High Dose 65 & up) IM Intramuscular May 08, 2015 A dministered Influenza (High Dose 65 & up) IM Intramuscular May 04, 2014 A dministered Pneumococcal Adult 0.5mL (Pneumovax 23) IM Intramuscular [...] Notes Total Score: 1 Interpretation: Alcohol Education Muslim: Question Answer Notes Muslim 21 Mormon No taoism beliefs that would impact health care. Sexual [...] MEDICATIONS Medication SIG (Take, Route, Frequency, Duration) Start Date En d Date Status Fluticasone Propionate 50 MCG/ACT 1 spray in each nost ril Nasally Once a day for 30 day(s) Active Mometasone Furoate 0.1 % 1 application Externally Onc e a day to ear if itchy with scale for 30 days Dec, Active Ferrous Sulfate 325 (65 Fe) MG 1 tablet Orally bid for 30 day(s) Active Vitamin C 500 MG as directed Orally Activ e Aspirin 81 MG 1 tablet Orally Daily Activ e Omeprazole 20 MG 1 capsule 30 minutes before morning meal Orally Once a day for 30 day(s) Active Multivitamins OTC 1 tab Orally daily Acti ve Ezetimibe 10 MG 1 tablet Orally Once a day for 90 days Feb, Active PROCEDURES Procedure Date Ordered Result Body Site Immunization: Flublok Quadrivalent (18 years & older) 0.5mL IM (Influenza) 2020-04-05 N/A RESULTS No Results REASON FOR VISIT flu MEDICAL (GENERAL) HISTORY Type Description Date Medical [...] 10/02 Medical History iron defic anemia 11/02 Surgical History colonoscopy (nl) 2001, 02/26, 11/30 Surgical History left inguinal hernia Surgical History EGD (neg) colonoscopy (nl) 11/30 Surgical History vocal cord biopsy 09/2018 Hospitalization History Pneumonia - Requiring ICU/intubation in [place] 07/2013 Goals Section No Information Health Concerns No Information MEDICAL EQUIPMENT No Information MENTAL STATUS No Information FUNCTIONAL STATUS No Information ASSESSMENTS Encounter Date Diagnosis Notes Mar, Encounter for immunization (ICD-10 - Z23 ) PLAN OF TREATMENT Medication Medication Name Sig Start Date Stop Date Mometasone Furoate 0.1 % 1 application Externally Onc e a day to ear if itchy with scale for 30 days Dec, Insurance Providers Payer Name Payer Address Payer Phone Insured Name Patient Relati onship to Insured Coverage Start Date Coverage End Date AARP HEALTH CARE OPTIONS [facility] CLAIM DIV [address] [facility] [id number] CATHY SKY MEDICARE Part A and B [address] [facility] [phone] CATHY SKY
--- OUTSIDE RECORDS SUMMARY | 2020-06-28 08:18 | CCD ---
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 Active 08924726 Problem Allergic rhinitis, unspecified J30.9 Active 6 8929794 Problem Gastro-esophageal reflux disease without esophagitis K21.9 Active 993958148 Problem Disorder of carbohydrate metabolism, 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 Active 75995613 Problem Mixed hyperlipidemia E78.2 Active 336798922 Problem Dermatitis of external ear L30.9 Active 00055 8005 Problem SK (seborrheic keratosis) L82.1 Active 016947 009 Problem Iron deficiency anemia, unspecified iron deficiency an emia type D50.9 Active 09082831 Problem History of Clostridium difficile colitis Z86.19 Active 937799151 Problem Arthritis of right knee M17.11 Active 25935411 19242151 Problem Other obstructive and reflux uropathy N13.8 Ac tive 67008316 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 32252496 Problem 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7 Active 607944478 Problem Xerosis cutis L85.3 Active 14954959 Problem Melanocytic nevi of left lower limb, including hip D22.72 Active 867936032 Problem Melanocytic nevi of right lower limb, including hip D22.71 Active 295873137 Problem Melanocytic nevi of left upper limb, including shoulder D22.62 Active 708341893 ALLERGIES Allergen (clinical drug ingredient) Drug/Non Drug Allergy do cumented on EMR Reaction Allergy Type Onset Date Status naproxen Rash Non Drug Allergy Active pravastatin myalgias Non Drug Allergy Active simvastatin CPK, myalgias Non Drug Allergy Acti ve sulfa severe edema Non Drug Allergy Active ENCOUNTERS from 1935 to 2020-05-24 Encounter Location Date Provider Diagnosis [address] [address] May, Jamie Paris IMMUNIZATIONS Vaccine Route Administration Date Status Influenza [...] Notes Total Score: 1 Interpretation: Alcohol Education Scientologist: Question Answer Notes Scientologist 21 Moravian No anabaptist beliefs that would impact health care. Sexual [...] Notes Start Da te End Date Status Fluticasone Propionate 50 MCG/ACT 1 spray in each nost ril Nasally Once a day for 30 day(s) Active Aspirin 81 MG 1 tablet Orally Daily Active Vitamin C 500 MG as directed Orally Active Ferrous Sulfate 325 (65 Fe) MG 1 tablet Orally bid for 30 day(s) Not-Taking Mometasone Furoate 0.1 % 1 application Externally Onc e a day to ear if itchy with scale for 30 days Dec, Not-Lars dunlap Omeprazole 20 MG 1 capsule 30 minutes before morning meal Orally Once a day for 30 day(s) Active Zithromax Z-Robert 250 MG 2 tablet on the first day, then 1 tablet daily for 4 days Orally Once a day for 5 day(s) May, Active Ezetimibe 10 MG 1 tablet Orally Once a day for 90 days Feb, Active Multivitamins OTC 1 tab Orally daily Active PROCEDURES No Information RESULTS No Results REASON FOR VISIT cat bite MEDICAL (GENERAL) HISTORY Type Description Date Medical [...] 02/26, 11/30 Surgical History left inguinal hernia 1980s Surgical History EGD (neg) colonoscopy (nl) 11/30 Surgical History vocal cord biopsy 09/2018 Hospitalization History Pneumonia - Requiring ICU/intubation in [place] 07/2013 Goals Section No Information Health Concerns No Information MEDICAL EQUIPMENT No Information MENTAL STATUS No Information FUNCTIONAL STATUS No Information ASSESSMENTS No Information PLAN OF TREATMENT Medication Medication Name Sig Start Date Stop Date Zithromax Z-Robert 250 MG 2 tablet on the first day, then 1 tablet daily for 4 days Orally Once a day for 5 day(s) May, Next Appt Details Provider Name:Jamie Raina, 2019-12 -10 11:00:00 AM, [address], [place], [address], Insurance Providers Payer Name Payer Address Payer Phone Insured Name Patient Relati onship to Insured Coverage Start Date Coverage End Date AARP HEALTH CARE OPTIONS [facility] CLAIM DIV [address] [facility] [phone] CATHY SKY MEDICARE Part A and B [address] [facility] [phone] CATHY SKY
--- OUTSIDE RECORDS SUMMARY | 2020-06-28 08:18 | CCD ---
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 Active 43439792 Problem Gastro-esophageal reflux disease without esophagitis K21.9 Active 249087086 Problem Liver disease, unspecified K76.9 Active 62844 6003 Problem Mixed hyperlipidemia E78.2 Active 707749364 Problem Allergic rhinitis, unspecified J30.9 Active 6 6494777 Problem Anemia, unspecified D64.9 Active 612192693 Problem Disorder of carbohydrate metabolism, 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 Active 79878722 Problem Melanocytic nevi of right lower limb, including hip D22.71 Active 933319725 Problem Melanocytic nevi of left lower limb, including hip D22.72 Active 670046642 Problem Other obstructive and reflux uropathy N13.8 Ac tive 82928932 Problem Iron deficiency anemia, unspecified iron deficiency an emia type D50.9 Active 39491456 Problem 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 Active 323115592 Problem Arthritis of right knee M17.11 Active 83842382 82403456 Problem Sacroiliac inflammation M46.1 Active 82402402 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 82151540 Problem Xerosis cutis L85.3 Active 46882676 Problem Arthritis of knee M17.10 Active 798566417 Problem Melanocytic nevi of left upper limb, including shoulder D22.62 Active 795292279 Problem Melanocytic nevi of right upper limb, including shoulder D22.61 Active 773582096 Problem Melanocytic nevi of trunk D22.5 Active 457807 002 Problem Lentigines L81.4 Active 125780039 Problem Enterocolitis due to Clostridium difficile A04.7 Active 695983826 Problem Medicare annual wellness visit, subsequent Z00.00 Active 132409743 Problem Other peripheral vertigo, unspecified ear H81.399 Active 68472198 Problem History of Clostridium difficile colitis Z86.19 Active 887703303 Problem SK (seborrheic keratosis) L82.1 Active 507034 009 Problem Dermatitis of external ear L30.9 Active 35537 8005 Problem Melanocytic nevi of face D22.30 Active 5539855 04 Problem Actinic keratoses L57.0 Active 060761226 ALLERGIES Allergen (clinical drug ingredient) Drug/Non Drug Allergy do cumented on EMR Reaction Allergy Type Onset Date Status naproxen Rash Non Drug Allergy Active pravastatin myalgias Non Drug Allergy Active simvastatin CPK, myalgias Non Drug Allergy Acti ve sulfa severe edema Non Drug Allergy Active ENCOUNTERS from 1935 to 2020-05-25 Encounter Location Date Provider Diagnosis [facility] [address] [place] [address] May [place] Open bite of left hand, initial encounte r S61.452A ; Bitten by cat, initial encounter W55.01XA and Encounter for immunization Z23 IMMUNIZATIONS Vaccine Route Administration Date Status Influenza (18 yrs & older) Flublok IM Intramuscular Apr 08, 2019 Administered Influenza (18 yrs & older) Flublok IM Intramuscular Apr 05, 2020 Administered Influenza (High Dose 65 & up) IM Intramuscular Apr 10, 2017 A dministered Influenza (18 yrs & older) Flublok IM Intramuscular Apr 07, 2018 Administered TDAP (VFC) 0.5mL (Boostrix) IM Intramuscular May 23, 2020 Adm inistered Influenza (6mo & up) Fluzone IM Intramuscular Mar 16, 2010 Ad ministered Influenza (High Dose 65 & up) IM Intramuscular May 23, 2016 A dministered Influenza (High Dose 65 & up) IM Intramuscular May 08, 2015 A dministered Pneumococcal 0.5mL (Prevnar 13) IM Intramuscular May 11, 2014 Administered Influenza (High Dose 65 & up) IM Intramuscular May 04, 2014 A dministered Pneumococcal Adult 0.5mL (Pneumovax 23) IM Intramuscular Mar 17, 2012 Administered Influenza (6mo & up) Fluzone IM [...] Notes Total Score: 1 Interpretation: Alcohol Education Episcopalian: Question Answer Notes Episcopalian 21 Gnosticist No moravian beliefs that would impact health care. Sexual [...] REASON FOR REFERRAL No Information VITAL SIGNS Weight 221 lbs May, Height 70 in May, BMI 31.71 kg/m2 May, Heart Rate 68 /min May, Respiratory Rate 18 /min May, Temperature 98.1 degrees Fahrenheit May, Oximetry 98 May, Blood pressure systolic 158 mm Hg May, Blood pressure diastolic 84 mm Hg May, MEDICATIONS Medication SIG (Take, Route, Frequency, Duration) Notes Start Da te End Date Status Aspirin 81 MG 1 tablet Orally Daily Active Omeprazole 20 MG 1 capsule 30 minutes before morning meal Orally Once a day for 30 day(s) Active Mometasone Furoate 0.1 % 1 application Externally Onc e a day to ear if itchy with scale for 30 days Dec, Not-Lars g Ferrous Sulfate 325 (65 Fe) MG 1 tablet Orally bid for 30 day(s) Not-Taking Ezetimibe 10 MG 1 tablet Orally Once a day for 90 days Feb, Active Multivitamins OTC 1 tab Orally daily Active Fluticasone Propionate 50 MCG/ACT 1 spray in each nost ril Nasally Once a day for 30 day(s) Active Vitamin C 500 MG as directed Orally Active Zithromax Z-Robert 250 MG 2 tablet on the first day, then 1 tablet daily for 4 days Orally Once a day for 5 day(s) May, Active PROCEDURES from 1935 to 2020-05-25 Procedure Date Ordered Result Body Site Immunization: Boostrix 0.5mL IM (TDAP) 2020-05-23 N/A RESULTS No Results REASON FOR VISIT cat [...] Hospitalization History Pneumonia - Requiring ICU/intubation in [place] 07/2013 Goals Section No Information Health Concerns No Information MEDICAL EQUIPMENT No Information MENTAL STATUS No Information FUNCTIONAL STATUS No Information ASSESSMENTS Encounter Date Diagnosis Assessment Notes Treatment Notes Treatm ent Clinical Notes May, Open bite of left hand, initial encounter (ICD-1 0 - S61.452A) May, Bitten by cat, initial encounter (ICD-10 - W55.0 1XA) You have suffered a cat bite. An antibiotic is not necessary at this time as there is no infection. Keep the wound clean and covered for 2-3 days. Apply Bacitracin ointment to wound twice daily for 2-3 days. You may elevate above your head. Close monitoring at this time. If you develop increased redness or swelling or pain If symptoms worsen, go to the Emergency Room. Your tetanus vaccination was updated today. May, Encounter for immunization (ICD-10 - Z23) May, Other Medication/s di scussed with patient and questions answered. RTC as needed for worsening or unresolved symptoms. Patient states understanding and agreement with this plan. PLAN OF TREATMENT Treatment Notes Assessment Notes Clinical Notes Bitten by cat, initial encounter You have suffered a c at bite. An antibiotic is not necessary at this time as there is no infection. Keep the wound clean and covered for 2-3 days. Apply Bacitracin ointment to wound twice daily for 2-3 days. You may elevate above your head. Close monitoring at this time. If you develop increased redness or swelling or pain If symptoms worsen, go to the Emergency Room. Your tetanus vaccination was updated today. Next Appt Details 2 - 3 Days unless improving Reason: Insurance Providers Payer Name Payer Address Payer Phone Insured Name Patient Relati onship to Insured Coverage Start Date Coverage End Date MEDICARE Part A and B [address] [facility] [id number] CATHY SKY [facility] HEALTH CARE OPTIONS [facility] CLAIM DIV [address] [facility] [phone] CATHY SKY
--- OUTSIDE RECORDS SUMMARY | 2020-06-28 08:18 | CCD ---
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 Active 08708857 Problem Allergic rhinitis, unspecified J30.9 Active 6 2256353 Problem Gastro-esophageal reflux disease without esophagitis K21.9 Active 031130953 Problem Disorder of carbohydrate metabolism, 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 Active 97482553 Problem Mixed hyperlipidemia E78.2 Active 639629643 Problem Dermatitis of external ear L30.9 Active 54799 8005 Problem SK (seborrheic keratosis) L82.1 Active 043310 009 Problem Iron deficiency anemia, unspecified iron deficiency an emia type D50.9 Active 73142151 Problem History of Clostridium difficile colitis Z86.19 Active 677649536 Problem Arthritis of right knee M17.11 Active 61833555 30144020 Problem Other obstructive and reflux uropathy N13.8 Ac tive 12970798 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 87428745 Problem 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7 Active 367787005 Problem Xerosis cutis L85.3 Active 78435353 Problem Melanocytic nevi of left lower limb, including hip D22.72 Active 323211557 Problem Melanocytic nevi of right lower limb, including hip D22.71 Active 148046351 Problem Melanocytic nevi of left upper limb, including shoulder D22.62 Active 124594570 ALLERGIES Allergen (clinical drug ingredient) Drug/Non Drug Allergy do cumented on EMR Reaction Allergy Type Onset Date Status naproxen Rash Non Drug Allergy Active pravastatin myalgias Non Drug Allergy Active simvastatin CPK, myalgias Non Drug Allergy Acti ve sulfa severe edema Non Drug Allergy Active ENCOUNTERS from 1935 to 2020-05-23 Encounter Location Date Provider Diagnosis [facility] [address] [place] [address] May Eric Flores IMMUNIZATIONS Vaccine Route Administration Date Status Influenza [...] Notes Total Score: 1 Interpretation: Alcohol Education Tenriism: Question Answer Notes Tenriism 21 Hindu No congregation beliefs that would impact health care. Sexual [...] Information RESULTS No Results REASON FOR VISIT tracie bite MEDICAL (GENERAL) HISTORY Type Description Date [...] Hospitalization History Pneumonia - Requiring ICU/intubation in [place] 07/2013 Goals Section No Information Health Concerns [...] Provider Name:Jamie Raina, 2019-12 -10 11:00:00 AM, [address], [place], [address], Insurance Providers Payer Name Payer Address Payer Phone Insured Name Patient Relati onship to Insured Coverage Start Date Coverage End Date AARP HEALTH CARE OPTIONS [facility] CLAIM DIV [address] [facility] [phone] CATHY SKY MEDICARE Part A and B [address] [facility] [place] [place] [address] [phone] CATHY SKY
--- OUTSIDE RECORDS SUMMARY | 2020-06-28 08:18 | CCD | Continuity of Care Document ---
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 AUTM [phone] AUTM Unavailable Problems Active Problems Provider Date Chronic maxillary sinusitis Tina L Page DO Onset: 11/12 Allergic rhinitis Tina L Page DO Onset: 11/12/2013 Otolith disease Tina L Page DO Onset: 11/12/2013 Bilateral sensory hearing loss Tina L Page DO Onset: Neck pain Tina L Page DO Onset: 11/12/2013 Difficulty breathing Jessie Haile M.D. Onset: Cough Jessie Haile M.D. Onset: 06/2015 Gastroesophageal reflux disease Mikhail Avila Onset: 11/15/2015 Chest pain Jessie Haile M.D. Onset: 06/2015 Ex-smoker Jessie Haile M.D. Onset: 06/2015 Pulmonary function studies abnormal Jessie Haile M.D. Onset: 02/25/2018 Difficulty speaking Milton Browning MD Onset: 02/25/2018 Social History Type Date Description Comments Sex Unknown Tobacco Use Start: Unknown End: Unknown Quit ETOH Use Drinks 3 Alcoholic Beverages Per Week ETOH Use 1-2 A Month Tobacco Use Start: Unknown Non Smoker Recreational Drug Use Denies Drug Use Tobacco Use Start: Unknown Quit Tobacco Use Start: Unknown End: Unknown Patient is a former smoker Allergies, Adverse Reactions, Alerts Active Allergies Reaction Severity Comments Date Sulfa 01/08/2011 Medications Active Medications SIG Qnty Indications Ordering Provide r Date Fluticasone Propionate 50mcg/Act Suspension 2 sprays to each nostril daily 32gm J31.0 Milton dunlap MD 08/11/[address] Tablets [address] Unknown Florajen Bifidoblend Capsules 1 by mouth prn Unknown Lutein Vision Blend Capsules Unknown Ezetimibe 10mg Tablets Take One Tablet By Mouth Every Day Unknown Omeprazole 20mg Capsules DR take one capsule of omeprazole daily Unknown Immunizations Description No Information Available Vital Signs Date Vital Result Comment 05/24/2020 10:57am Height 70 inches 5'10" Weight 229.00 lb BMI (Body Mass Index) 32.9 kg/m2 [place] Body Weight 166 lb Weight 103.874 kg BSA (Body Surface Area) 2.21 m2 10/18/2019 10:12am Height 70 inches 5'10" Weight 229.00 lb BMI (Body Mass Index) 32.9 kg/m2 [place] Body Weight 166 lb Weight 103.874 kg BSA (Body Surface Area) 2.21 m2 Results Description No Information Available Procedures Date Code Description Status 02/02/2020 53573 Laryngoscopy Flexible Fiberoptic Diagnostic Completed Medical Devices Description No Information Available Encounters Description No Information Available Assessments Date Code Description Provider 05/24/2020 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 Milton Browning MD 05/24/2020 R49.0 Dysphonia Milton Browning MD 05/24/2020 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
--- OUTSIDE RECORDS SUMMARY | 2020-06-28 08:18 | CCD | Continuity of Care Document ---
Author Author Maxi CHI PA-C Organization Unknown Address [address] [address] Phone [phone] Problems Description No Active Problems Social History Type Date Description Comments Sex Unknown ETOH Use Occasionally consumes alcohol Tobacco Use Start: Unknown End: Unknown Patient is a former smoker Allergies, Adverse Reactions, Alerts Active Allergies Reaction Severity Comments Date sulfa drugs 01/09/2015 Medications Active Medications SIG Qnty Indications Ordering Provide r Date Euflexxa 20mg/2ML Soln Prefill Syr vignesh right knee #1 anm/tf 04/17/2020 right knee #2 04/26/2020 klf/oliva Timoteo Armendariz MD 04/17/2020 Aspir-Low 81mg Tablets DR 1 by mouth every day Unknown Multivitamin Adult Tablets 1 by mouth every day Unknown Omeprazole 20mg Capsules DR Unknown Ezetimibe 10mg Tablets Unknown Lutein 20mg Capsules Unknown Vitamin C Immune Health 500mg Chewtabs Unknown Iron (Ferrous Sulfate) 325(65Fe) mg Tablets Unknown Fluticasone Propionate 50mcg/Act Suspension Unknown Claritin 10mg Tablets 1 by mouth every morning Unknown Immunizations Description No Information Available Vital Signs Date Vital Result Comment 02/17/2020 2:58pm Body Temperature 97.5 F Height 68 inches 5'8" Weight 218.31 lb BMI (Body Mass Index) 33.2 kg/m2 02/14/2017 9:56am Body Temperature 97.1 F Height 69.25 inches 5'9.25" Weight 209.00 lb BMI (Body Mass Index) 30.6 kg/m2 Results Description No Information Available Procedures Date Code Description Status 04/26/2020 Inject/Drain Joint/Bursa Major C ompleted 04/17/2020 Inject/Drain Joint/Bursa Major C ompleted 02/29/2020 83247 MRI Lower Extremity Any Joint Co mpleted 02/29/2020 13696 MRI Lower Extremity Any Joint Co mpleted 02/17/2020 73610 X-Ray Knee Complete W/Obliques & Tunnel And/Or Standing Views Completed 02/17/2020 Inject/Drain Joint/Bursa Major C ompleted Medical Devices Description No Information Available Encounters Type Date Location Provider Dx Diagnosis Office Visit 04/26/2020 3:15p Shay Chi PA-C M17.11 Unilateral primary osteoarthritis, right knee Office Visit 03/07/2020 11:00a Shay Armendariz MD S83. 232A Complex tear of medial mensc, current injury, l knee, init M17.0 Bilateral primary osteoarthr itis of knee Office Visit 02/17/2020 1:45p Shay Armendariz MD M25. 562 Pain in left knee M17.0 Bilateral primary osteoarthr itis of knee Assessments Date Code Description Provider 04/26/2020 M17.11 Unilateral primary osteoarthriti s, right knee Thalia Chi PA-C 04/17/2020 M17.11 Unilateral primary osteoarthriti s, right knee Timoteo Armendariz MD 04/17/2020 M17.12 Unilateral primary osteoarthriti s, left knee Timoteo Armendariz MD 03/07/2020 S83.232A Complex tear of medi al meniscus, current injury, left knee, initial encounter Timoteo Armendariz MD 03/07/2020 M17.0 Bilateral primary osteoarthritis of knee Timoteo Armendariz MD 02/29/2020 M25.562 Pain in left knee Timoteo weaver MD 02/29/2020 M25.562 Pain in left knee MRI 02/17/2020 M25.562 Pain in left knee Timoteo weaver MD 02/17/2020 M17.0 Bilateral primary osteoarthritis of knee Timoteo Armendariz MD Plan of Treatment Future Appointment(s):* 05/04/2020 2:30 pm - Thalia Chi PA-C at [facility] Functional Status Description No Information Available Mental Status Description No Information Available Referrals Refer to Dr Reason for Referral Status Appt Date Timoteo Armendariz MD No authorization req Created [facility] [place] [address] [phone] Timoteo Armendariz MD No authorization req- MCR prime Created [facility] [place] [address] [phone] Timoteo Armendariz MD Euflexxa inj's no authorizat ion required to scheduling nt Created [facility] [place] [address] [phone] Timoteo Armendariz MD MRI NO AUTH REQUIRED FOR MRI OF LEFT KNEE TO X-RAY NT Created [address] [place] [address] [phone]
--- OUTSIDE RECORDS SUMMARY | 2020-06-28 08:18 | CCD | Continuity of Care Document ---
Author Author Maxi CHI PA-C Organization Unknown Address [address] [address] Phone [phone] Problems Description No Active Problems Social History [...] anm/tf 04/17/2020 right knee #2 04/26/2020 klf/oliva right knee #3 05/04/2020 klf/bc Timoteo Armendariz MD 020 Aspir-Low 81mg Tablets DR 1 by mouth [...] Information Available Procedures Date Code Description Status 05/04/2020 Inject/Drain Joint/Bursa Major C ompleted 04/26/2020 Inject/Drain Joint/Bursa Major C ompleted 04/17/2020 Inject/Drain Joint/Bursa Major C ompleted 02/29/2020 66671 MRI Lower Extremity Any Joint Co mpleted 02/29/2020 16659 MRI Lower Extremity Any Joint Co mpleted 02/17/2020 53615 X-Ray Knee Complete W/Obliques & Tunnel And/Or Standing Views Completed 02/17/2020 Inject/Drain Joint/Bursa Major C ompleted Medical Devices Description No Information Available Encounters Type Date Location Provider Dx Diagnosis Office Visit 05/04/2020 2:30p Shay Cih PA-C M17.11 Unilateral primary osteoarthritis, right knee Office Visit 04/26/2020 3:15p Shay Chi PA-C M17.11 Unilateral primary osteoarthritis, right knee Office Visit 04/17/2020 9:30a Shay Armendariz MD M17. 11 Unilateral primary osteoarthritis, right knee Office Visit 03/07/2020 11:00a Shay Armendariz MD S83. 232A Complex tear of medial mensc, current injury, l knee, init M17.0 Bilateral primary osteoarthr itis of knee Office Visit 02/17/2020 1:45p Shay Armendariz MD M25. 562 Pain in left knee M17.0 Bilateral primary osteoarthr itis of knee Assessments Date Code Description Provider 05/04/2020 M17.11 Unilateral primary osteoarthriti s, right knee Thalia Chi PA-C 04/26/2020 M17.11 Unilateral primary osteoarthriti s, right knee Thalia Chi PA-C 04/17/2020 M17.11 Unilateral primary osteoarthriti s, right knee Timoteo Armendariz MD 03/07/2020 S83.232A Complex [...] knee Timoteo Armendariz MD Plan of Treatment No Information Available Functional Status Description No Information Available Mental Status Description No Information Available Referrals Refer to Dr Reason for Referral Status Appt Date Timoteo Armendariz MD No authorization req Created [address] [place] [address] [phone] Timoteo Armendariz MD No authorization req- MCR prime Created [address] [place] [address] [phone] Timoteo Armendariz MD Euflexxa inj's no authorizat ion required to scheduling nt Created [address] [place] [address] [phone] Timoteo Armendariz MD MRI NO AUTH REQUIRED FOR MRI OF LEFT KNEE TO X-RAY NT Created [address] [place] [address] [phone]
--- OUTSIDE RECORDS SUMMARY | 2020-06-28 08:18 | CCD ---
Author Author [facility] Organization 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 Active 20461801 Problem Mixed hyperlipidemia E78.2 Active 002235365 Problem Dermatitis of external ear L30.9 Active 68776 8005 Problem SK (seborrheic keratosis) L82.1 Active 820708 009 Problem Iron deficiency anemia, unspecified iron deficiency an emia type D50.9 Active 63789120 Problem History of Clostridium difficile colitis Z86.19 Active 796696095 Problem Arthritis of right knee M17.11 Active 23661568 02987258 Problem Other obstructive and reflux uropathy N13.8 Ac tive 87917485 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 95268923 Problem 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 Active 786724123 Problem Sacroiliac inflammation M46.1 Active 34421167 Problem Arthritis of knee M17.10 Active 731097687 Problem Melanocytic nevi of face D22.30 Active 0713754 04 Problem Actinic keratoses L57.0 Active 222588367 Problem Lentigines L81.4 Active 465896883 Problem Melanocytic nevi of right upper limb, including shoulder D22.61 Active 067810256 Problem Other peripheral vertigo, unspecified ear H81.399 Active 23888230 Problem Melanocytic nevi of trunk D22.5 Active 367283 002 Problem Anemia, unspecified D64.9 Active 306766910 Problem Enterocolitis due to Clostridium difficile A04.7 Active 933509559 Problem Xerosis cutis L85.3 Active 79488261 Problem Melanocytic nevi of left lower limb, including hip D22.72 Active 007375608 Problem Melanocytic nevi of right lower limb, including hip D22.71 Active 129957512 Problem Melanocytic nevi of left upper limb, including shoulder D22.62 Active 091393822 ALLERGIES Allergen (clinical drug ingredient) Drug/Non Drug Allergy do cumented on EMR Reaction Allergy Type Onset Date Status naproxen Rash Non Drug Allergy Active pravastatin myalgias Non Drug Allergy Active simvastatin CPK, myalgias Non Drug Allergy Acti ve sulfa severe edema Non Drug Allergy Active ENCOUNTERS from 1935 to 2020-04-28 Encounter Location Date Provider Diagnosis [facility] [address] [place] [address] 28 Mar, 2020 Erick Paris IMMUNIZATIONS Vaccine Route Administration Date Status [...] Notes Total Score: 1 Interpretation: Alcohol Education Yazdanism: Question Answer Notes Yazdanism 21 Buddhism No jehovah's witness beliefs that would impact health care. Sexual [...] day for 90 days Feb, Active PROCEDURES No Information RESULTS No Results REASON FOR VISIT call back reguarding referral MEDICAL (GENERAL) HISTORY Type Description Date Medical [...] Hospitalization History Pneumonia - Requiring ICU/intubation in [place] 07/2013 Goals Section No Information Health Concerns [...] Insured Coverage Start Date Coverage End Date [facility] CLAIM DIV [address] [facility] [id number] [employer] MEDICARE Part A and B [address] [facility] [phone] C[employer] SK[employer]
--- OUTSIDE RECORDS SUMMARY | 2020-06-28 08:18 | CCD ---
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 Name Role Phone Jamie Paris Unavailable PROBLEMS Type Condition ICD9-CM Code [id number] Code Onset Dates Condition S tatus SNOMED Code Notes Problem Liver disease, unspecified K76.9 Active 26592 6003 Problem Other cervical disc degeneration, 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 Active 16174127 Problem Allergic rhinitis, unspecified J30.9 Active 6 7876601 Problem Gastro-esophageal reflux disease without esophagitis K21.9 Active 975494755 Problem Disorder of carbohydrate metabolism, 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 Active 79725830 Problem Mixed hyperlipidemia E78.2 Active 239150052 Problem Dermatitis of external ear L30.9 Active 51996 8005 Problem SK (seborrheic keratosis) L82.1 Active 727318 009 Problem Iron deficiency anemia, unspecified iron deficiency an emia type D50.9 Active 64371970 Problem History of Clostridium difficile colitis Z86.19 Active 092511170 Problem Arthritis of right knee M17.11 Active 92419114 71658191 Problem Other obstructive and reflux uropathy N13.8 Ac tive 22754445 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 39229165 Problem 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 Active 052263560 Problem Sacroiliac inflammation M46.1 Active 82272591 Problem Arthritis of knee M17.10 Active 501926976 Problem Melanocytic nevi of face D22.30 Active 8800000 04 Problem Actinic keratoses L57.0 Active 168759105 Problem Lentigines L81.4 Active 135944215 Problem Melanocytic nevi of right upper limb, including shoulder D22.61 Active 690462277 Problem Other peripheral vertigo, unspecified ear H81.399 Active 94941249 Problem Melanocytic nevi of trunk D22.5 Active 123814 002 Problem Anemia, unspecified D64.9 Active 830153315 Problem Enterocolitis due to Clostridium difficile A04.7 Active 863129158 Problem Xerosis cutis L85.3 Active 17599629 Problem Melanocytic nevi of left lower limb, including hip D22.72 Active 565000309 Problem Melanocytic nevi of right lower limb, including hip D22.71 Active 471351433 Problem Melanocytic nevi of left upper limb, including shoulder D22.62 Active 975334132 ALLERGIES Allergen (clinical drug ingredient) Drug/Non Drug Allergy do cumented on EMR Reaction Allergy Type Onset Date Status naproxen Rash Non Drug Allergy Active pravastatin myalgias Non Drug Allergy Active simvastatin CPK, myalgias Non Drug Allergy Acti ve sulfa severe edema Non Drug Allergy Active ENCOUNTERS from 1935 to 2020-05-02 Encounter Location Date Provider Diagnosis [facility] [address] [place] [address] Apr, Erick Paris IMMUNIZATIONS Vaccine Route Administration Date [...] Notes Total Score: 1 Interpretation: Alcohol Education Spiritism: Question Answer Notes Spiritism 21 Protestant No sikhism beliefs that would impact health care. Sexual [...] tablet Orally bid for 30 day(s) Active Multivitamins OTC 1 tab Orally daily Active Omeprazole 20 MG 1 capsule 30 minutes before morning meal Orally Once a day for 30 day(s) Active Aspirin 81 MG 1 tablet Orally Daily Active Ezetimibe 10 MG 1 tablet Orally Once a day for 90 days Feb, Active Vitamin C 500 MG as directed Orally Active PROCEDURES No Information RESULTS No Results REASON FOR VISIT shingles order MEDICAL (GENERAL) HISTORY Type Description Date Medical [...] Hospitalization History Pneumonia - Requiring ICU/intubation in [place] 07/2013 Goals Section No Information Health Concerns No Information MEDICAL EQUIPMENT No Information MENTAL STATUS No Information FUNCTIONAL STATUS No Information ASSESSMENTS No Information PLAN OF TREATMENT No Information Insurance Providers Payer Name Payer Address Payer Phone Insured Name Patient Relati onship to Insured Coverage Start Date Coverage End Date MEDICARE Part A and B [address] [facility] [id number] CATHY SKY [facility] HEALTH CARE [facility] CLAIM DIV [address] [facility] [phone] CATHY SKY
--- OUTSIDE RECORDS SUMMARY | 2020-06-28 08:18 | CCD | Continuity of Care Document ---
Author Author Maxi SANDERSON Organization Unknown Address [address] [place] [address] [place] [address] Phone [phone] Problems Description No Information Available Social History Type Date Description Comments Sex Unknown Allergies, Adverse Reactions, Alerts Description No Information Available Medications Description No Information Available Immunizations Description No Information Available Vital Signs Description No Information Available Results Description No Information Available Procedures Date Code Description Status 05/02/2020 41592 Echocardiogram 2-D Doppler Color Completed Medical Devices Description No Information Available Encounters Description No Information Available Assessments Date Code Description Provider 05/02/2020 R06.00 Dyspnea, unspecified ECHO Plan of Treatment No Information Available Functional Status Description No Information Available Mental Status Description No Information Available Referrals Description No Information Available
--- OUTSIDE RECORDS SUMMARY | 2020-06-28 08:18 | CCD | Continuity of Care Document ---
Author Author Maxi CHI PA-C Organization Unknown Address [address] [address] Phone [phone] Problems Description No Active Problems Social History [...] 04/17/2020 Inject/Drain Joint/Bursa Major C ompleted 02/29/2020 48348 MRI Lower Extremity Any Joint Co mpleted 02/29/2020 45223 MRI Lower Extremity Any Joint Co mpleted 02/17/2020 51047 X-Ray Knee Complete W/Obliques & Tunnel And/Or Standing Views Completed 02/17/2020 Inject/Drain Joint/Bursa Major C ompleted Medical Devices Description No Information Available Encounters Type Date Location Provider Dx Diagnosis Office Visit 05/04/2020 2:30p Shay Chi PA-C M17.11 Unilateral primary osteoarthritis, [...] Timoteo Armendariz MD No authorization req Created [address] [place] [address] [phone] Timoteo Armendariz MD No authorization req- MCR prime Created [address] [place] [address] [phone] Timoteo Armendariz MD Euflexxa inj's no authorizat ion required to scheduling nt Created [address] [place] [address] [phone] Timoteo Armendariz MD MRI NO AUTH REQUIRED FOR MRI OF LEFT KNEE TO X-RAY NT Created [address] [place] [address] [phone]
--- OUTSIDE RECORDS SUMMARY | 2020-06-28 08:18 | CCD | Continuity of Care Document ---
Author Author Maxi ARMENDARIZ MD Organization Unknown Address [address] [place] [address] Phone [phone] Problems Description No Active Problems Social History Type Date Description Comments Sex Unknown ETOH Use Occasionally consumes alcohol Tobacco Use Start: Unknown End: Unknown Patient is a former smoker Allergies, Adverse Reactions, Alerts Active Allergies Reaction Severity Comments Date sulfa drugs 01/09/2015 Medications Active Medications SIG Qnty Indications Ordering Provide r Date Euflexxa 20mg/2ML Soln Prefill Syr vignesh right knee #1 Anm/TF 04/17/2020 Timoteo gasca MD 04/17/2020 Aspir-Low 81mg Tablets DR 1 [...] Information Available Procedures Date Code Description Status 02/29/2020 06798 MRI Lower Extremity Any Joint Co mpleted 02/29/2020 59207 MRI Lower Extremity Any Joint Co mpleted 02/17/2020 75411 X-Ray Knee Complete W/Obliques & Tunnel And/Or Standing Views Completed 02/17/202084595 Inject/Drain Joint/Bursa Major C ompleted Medical Devices Description No Information Available Encounters Type Date Location Provider Dx Diagnosis Office Visit 03/07/2020 11:00a [place] S83. 232A Complex tear of medial mensc, current injury, l knee, init M17.0 Bilateral primary osteoarthr itis of knee Office Visit 02/17/2020 1:45p Shay Armendariz MD M25. 562 Pain in left knee M17.0 Bilateral primary osteoarthr itis of knee Assessments Date Code Description Provider 03/07/2020 S83.232A Complex tear of medi al [...] Armendariz MD Plan of Treatment Future Appointment(s):* 05/01/2020 9:00 am - Timoteo Armendariz MD at [place] * 04/24/2020 9:30 am - Timoteo Armendariz MD at [place] 03/07/2020 - Timoteo Armendariz MD* S83.232A Complex tear of medial meniscus, current injury, left knee, initial encounter * M17.0 Bilateral primary osteoarthritis of knee* Follow up:* prn Functional Status Description No Information Available Mental Status Description No Information Available Referrals Refer to Reason for Referral Status Appt Date Timoteo Armendariz MD Euflexxa inj's no authorizat ion required to scheduling nt Created [address] [place] [address] [address] [place] [address] [phone] Timoteo Armendariz MD MRI NO AUTH REQUIRED FOR MRI OF LEFT KNEE TO X-RAY NT Created [address] [facility] [address] [place] [address] [phone]
--- OUTSIDE RECORDS SUMMARY | 2020-06-28 08:18 | CCD ---
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 Name Role Phone Albertina Saldana Unavailable PROBLEMS Type Condition ICD9-CM Code ZVG81-TM Code Onset Dates Condition S tatus SNOMED Code Notes Problem Gastro-esophageal reflux disease without esophagitis K21.9 Active 975585397 Problem Mixed hyperlipidemia E78.2 Active 367677458 Problem Allergic rhinitis, unspecified J30.9 Active 6 1249274 Problem Anemia, unspecified D64.9 Active 135161807 Problem Disorder of carbohydrate metabolism, 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 Active 45503008 Problem Enterocolitis due to Clostridium difficile A04.7 Active 473650037 Problem Other peripheral vertigo, unspecified ear H81.399 Active 89052948 Problem Melanocytic nevi of right upper limb, including shoulder D22.61 Active 164444003 Problem Melanocytic nevi of left upper limb, including shoulder D22.62 Active 391599986 Problem Liver disease, unspecified K76.9 Active 78050 6003 Problem Other cervical disc degeneration, 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 Active 87547343 Problem 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 Active 491441939 Problem Arthritis of right knee M17.11 Active 32614311 83188500 Problem Sacroiliac inflammation M46.1 Active 26710492 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 44577458 Problem Xerosis cutis L85.3 Active 81098952 Problem Arthritis of knee M17.10 Active 241535311 Problem Melanocytic nevi of right lower limb, including hip D22.71 Active 258101967 Problem Melanocytic nevi of left lower limb, including hip D22.72 Active 168871318 Problem Melanocytic nevi of trunk D22.5 Active 712513 002 Problem SK (seborrheic keratosis) L82.1 Active 504136 009 Problem Dermatitis of external ear L30.9 Active 33827 8005 Problem 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 Active 318098624 Problem Iron deficiency anemia, unspecified iron deficiency an emia type D50.9 Active 49742124 Problem 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 Active 793140463 Problem History of Clostridium difficile colitis Z86.19 Active 801885208 Problem Other obstructive and reflux uropathy N13.8 Ac tive 84866926 Problem Melanocytic nevi of face D22.30 Active 4046727 04 Problem Actinic keratoses L57.0 Active 979979295 Problem Lentigines L81.4 Active 814457207 Problem Medicare annual wellness visit, subsequent Z00.00 Active 610244370 ALLERGIES Allergen (clinical drug ingredient) Drug/Non Drug Allergy do cumented on EMR Reaction Allergy Type Onset Date Status naproxen Rash Non Drug Allergy Active pravastatin myalgias Non Drug Allergy Active simvastatin CPK, myalgias Non Drug Allergy Acti ve sulfa severe edema Non Drug Allergy Active ENCOUNTERS from 1935 to 2020-06-26 Encounter Location Date Provider Diagnosis [facility] [address] [place] [address] 08 Jun, 2020 Mar chavo Saldana Pre- op evaluation Z01.818 ; Other specified malignant neoplasm of 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 and Dysphonia R49.0 IMMUNIZATIONS Vaccine Route Administration Date Status Influenza [...] Education Scientologist: Question Answer Notes Scientologist 21 Rastafarian No jehovah's witness beliefs that would impact [...] No Information VITAL SIGNS Weight 221 lbs Jun, Height 70 in Jun, BMI 31.71 kg/m2 Jun, Heart Rate 59 /min Jun, Respiratory Rate 18 /min Jun, Temperature 96.8 degrees Fahrenheit Jun, Oximetry 95 Jun, Blood pressure systolic 146 mm Hg Jun, Blood pressure diastolic 90 mm Hg Jun, MEDICATIONS Medication SIG (Take, Route, Frequency, Duration) [...] Information RESULTS No Results REASON FOR VISIT needs EKG/SMC- DSML excision lesion, preop for DSML excision lesion with Dr ronna delgado. under general 06-28-2020 C44.292, R49.0 fax# [phone] MEDICAL (GENERAL) HISTORY Type Description Date Medical [...] Hospitalization History Pneumonia - Requiring ICU/intubation in [place] 07/2013 Goals Section No Information Health Concerns No Information MEDICAL EQUIPMENT No Information MENTAL STATUS No Information FUNCTIONAL STATUS No Information ASSESSMENTS Encounter Date Diagnosis Assessment Notes Treatment Notes Treatm ent Clinical Notes Jun, Pre-op evaluation (ICD-10 - Z01.818) I discussed the risks vs. benefits of surgery with the patient in generic terms. I feel that he is at average risk for perioperative complications. He knows that there is always some risk with surgery and he has to be comfortable that, for him, the benefits of surgery outweigh the risks in order to proceed. If he has further questions regarding the specifics of the proposed surgical procedure and specific risks, he should discuss them with the surgeon. I feel that the patient's acute and chronic medical conditions are fully optimized at the present time. There are no readily alterable factors that could lower the patient's perioperative risk. I have recommended the patient stop all medications as recommended by their surgeon and anesthesia. In addition I recommend holding all medications the night before surgery. He was advised to stop his ASA 5 days before surgery. 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 be nefits of surgery with the patient in generic terms. I feel that he is at average risk for perioperative complications. He knows that there is always some risk with surgery and he has to be comfortable that, for him, the benefits of surgery outweigh the risks in order to proceed. If he has further questions regarding the specifics of the proposed surgical procedure and specific risks, he should discuss them with the surgeon.I feel that the patient's acute and chronic medical conditions are fully optimized at the present time. There are no readily alterable factors that could lower the patient's perioperative risk.I have recommended the patient stop all medications as recommended by their surgeon and anesthesia. In addition I recommend holding all medications the night before surgery. He was advised to stop his ASA 5 days before surgery. 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 Next Appt Details prn Reason: Insurance Providers Payer Name Payer Address Payer Phone Insured Name Patient Relati onship to Insured Coverage Start Date Coverage End Date [employer] [facility] CLAIM DIV [address] [facility] [address] [employer] MEDICARE Part A and B [address] [facility] [id number] [phone] [employer]
--- OUTSIDE RECORDS SUMMARY | 2020-06-28 08:19 | CCD ---
Author Author [facility] Organization [facility] Address Unknown Phone Unavailable Care Team Providers Care Regulatory Consultant Name Role Phone Emilia Burns MD Unavailable Unavailable Emilia Burns MD Unavailable Unavailable Emilia Burns MD Unavailable Unavailable Emilia Burns MD Unavailable Unavailable Emilia Burns MD Unavailable Unavailable Emilia Burns MD Unavailable Unavailable Emilia Burns MD Unavailable Unavailable Emilia Burns MD Unavailable Unavailable Emilia Burns MD Unavailable Unavailable Emilia Burns MD Unavailable Unavailable Emilia Burns MD Unavailable Unavailable Emilia Burns MD Unavailable Unavailable Emilia Burns MD Unavailable Unavailable Emilia Burns MD Unavailable Unavailable Emilia Burns MD Unavailable Unavailable Emilia Burns MD Unavailable Unavailable Emilia Burns MD Unavailable Unavailable Emilia Burns MD Unavailable Unavailable Emilia Burns MD Unavailable Unavailable Emilia Burns MD Unavailable Unavailable Emilia Burns MD Unavailable Unavailable Emilia Burns MD Unavailable Unavailable Emilia Burns MD Unavailable Unavailable Emilia Burns MD Unavailable Unavailable Emilia Burns MD Unavailable Unavailable Emilia Burns MD Unavailable Unavailable Emilia Burns MD Unavailable Unavailable GrantEmilia marcus MD Unavailable Unavailable GrantEmilia marcus MD Unavailable Unavailable GrantEmilia marcus MD Unavailable Unavailable Grant S Derrek ENCISO Unavailable Unavailable GrantEmilia marcus MD Unavailable Unavailable Grant S Derrek ENCISO Unavailable Unavailable GrantEmilia MD Unavailable Unavailable Grant, S Derrek ENCISO Unavailable Unavailable Grant S Derrek ENCISO Unavailable Unavailable GrantEmilia marcus MD Unavailable Unavailable Grant, S Derrek ENCISO Unavailable Unavailable Emilia Burns MD Unavailable Unavailable Emilia Burns MD Unavailable Unavailable Emilia Burns MD Unavailable Unavailable Emilia Burns MD Unavailable Unavailable Emilia Burns MD Unavailable Unavailable Emilia Burns MD Unavailable Unavailable Emilia Burns MD Unavailable Unavailable Emilia Burns MD Unavailable Unavailable Emilia Burns MD Unavailable Unavailable Fish, [facility], PA-C Unavailable Unavailabl e Fish, [facility], PA-C Unavailable Unavailabl e Fish, [facility], PA-C Unavailable Unavailabl e Fish, [facility], PA-C Unavailable Unavailabl e Fish, [facility], PA-C Unavailable Unavailabl e Fish, [facility], PA-C Unavailable Unavailabl e Fish, [facility], PA-C Unavailable Unavailabl e Fish, [facility], PA-C Unavailable Unavailabl e Fish, [facility], PA-C Unavailable Unavailabl e Fish, [facility], PA-C Unavailable Unavailabl e Fish, [facility], PA-C Unavailable Unavailabl e Fish, [facility], PA-C Unavailable Unavailabl e Fish, [facility], PA-C Unavailable Unavailabl e Fish, [facility], PA-C Unavailable Unavailabl e Fish, [facility], PA-C Unavailable Unavailabl e Fish, [facility], PA-C Unavailable Unavailabl e Fish, [facility], PA-C Unavailable Unavailabl e Fish, [facility], PA-C Unavailable Unavailabl e Fish, [facility], PA-C Unavailable Unavailabl e Fish, [facility], PA-C Unavailable Unavailabl e Fish, [facility], PA-C Unavailable Unavailabl e Fish, [facility], PA-C Unavailable Unavailabl e Fish, [facility], PA-C Unavailable Unavailabl e Fish, [facility], PA-C Unavailable Unavailabl e Fish, [facility], PA-C Unavailable Unavailabl e Fish, [facility], PA-C Unavailable Unavailabl e Fish, [facility], PA-C Unavailable Unavailabl e Fish, [facility], PA-C Unavailable Unavailabl e Fish, [facility], PA-C Unavailable Unavailabl e Fish, [facility], PA-C Unavailable Unavailabl e Fish, [facility], PA-C Unavailable Unavailabl e Fish, [facility], PA-C Unavailable Unavailabl e Fish, [facility], PA-C Unavailable Unavailabl e Jaguar, [facility] CEDEÑOP-C Unavailable Unavailabl e Jaguar, [facility] CEDEÑOP-C Unavailable Unavailabl e [employer], [facility] CEDEÑOP-C Unavailable Unavailabl e Jagu[employer], [facility] CEDEÑOP-C Unavailable Unavailabl e [employer], [facility] CEDEÑOP-C Unavailable Unavailabl e Jagu[employer], [facility] CEDEÑOP-C Unavailable Unavailabl e Jagu[employer], [facility] CEDEÑOP-C Unavailable Unavailabl e Jagu[employer], [facility] CEDEÑOP-C Unavailable Unavailabl e [employer], [facility] CEDEÑOP-C Unavailable Unavailabl e Jagu[employer], [facility] CEDEÑOP-C Unavailable Unavailabl e [employer], [facility] CEDEÑOP-C Unavailable Unavailabl e [employer], [facility] CEDEÑOP-C Unavailable Unavailabl e [employer], [employer] Unavailable Unavailabl e [employer], [employer]-C Unavailable Unavailabl e [employer], Bello [facility] [employer]-C Unavailable Unavailabl e [employer], [employer] Hurtado [employer]-C Unavailable Unavailabl e [employer], Bello [facility] [employer]-C Unavailable Unavailabl e [employer], Regmckenna [facility] [employer]TENA[employer]CE-C Unavailable Unavailabl e [employer], Reginaelo [facility] [employer]TENAN[employer]-C Unavailable Unavailabl e [employer], Regmckenna [facility] [employer]-C Unavailable Unavailabl e [employer], Bello [facility] [employer]INTENANCE-C Unavailable Unavailabl e [employer], [employer]ello uHrtado [employer] MAINTENANCE-C Unavailable Unavailabl e [employer], [employer] Hurt[employer]INTENANCE-C Unavailable Unavailabl e [employer], [employer]INTENANCE-C Unavailable Unavailabl e [employer], [employer]INTENAN[employer]-C Unavailable Unavailabl e [employer], [employer]INTE[employer]-C Unavailable Unavailabl e [employer], Bello [facility] [employer]INTENANCE-C Unavailable Unavailabl e [employer], [employer]INTENANCE-C Unavailable Unavailabl e [employer], [employer]INTENANCE-C Unavailable Unavailabl e [employer], [employer] Hurt[employer] MAINTENANCE-C Unavailable Unavailabl e [employer], Bello [facility] [employer]-C Unavailable Unavailabl e [employer], Regmckenna [facility] [employer]-C Unavailable Unavailabl e Clem BURNS DO Unavailable [phone] Clem BURNS DO Unavailable [phone] Clem BURNS DO Unavailable [phone] Clem BURNS DO Unavailable [phone] Clem BURNS DO Unavailable [phone] Clem BURNS DO Unavailable [phone] Clem BURNS DO Unavailable [phone] GRANT, A. MOSES DO Unavailable [phone] GRANT, A. MOSES DO Unavailable [phone] GRANT, A. MOSES DO Unavailable [phone] GRANT, A. MOSES DO Unavailable [phone] GRANT, A. MOSES DO Unavailable [phone] GRNAT, A. MOSES DO Unavailable [phone] GRANT, A. MOSES DO Unavailable [phone] GRANT, A. MOSES DO Unavailable [phone] GRANT, A. MOSES DO Unavailable [phone] GRANT, A. MOSES DO Unavailable [phone] GRANT, A. MOSES DO Unavailable [phone] GRANT, A. MOSES DO Unavailable [phone] GRANT, A. MOSES DO Unavailable [phone] GRANT, A. MOSES DO Unavailable [phone] ALLI SCHOFIELD MD Unavailable Unavailable ALLI SCHOFIELD MD Unavailable Unavailable ALLI SCHOFIELD MD Unavailable Unavailable ALLI SCHOFIELD MD Unavailable Unavailable ALLI SCHOFIELD MD Unavailable Unavailable ALLI SCHOFIELD MD Unavailable Unavailable ALLI SCHOFIELD MD Unavailable Unavailable ALLI SCHOFIELD MD Unavailable Unavailable ALLI SCHOFIELD MD Unavailable Unavailable ALLI SCHOFIELD MD Unavailable Unavailable ALLI SCHOFIELD MD Unavailable Unavailable ALLI SCHOFIELD MD Unavailable Unavailable ALLI SCHOFIELD MD Unavailable Unavailable ALLI SCHOFIELD MD Unavailable Unavailable ALLI SCHOFIELD MD Unavailable Unavailable ALLI SCHOFIELD MD Unavailable Unavailable ALLI SCHOFIELD MD Unavailable Unavailable ALLI SCHOFIELD MD Unavailable Unavailable ALLI SCHOFIELD MD Unavailable Unavailable ALLI SCHOFIELD MD Unavailable Unavailable ALLI SCHOFIELD MD Unavailable Unavailable ALLI SCHOFIELD MD Unavailable Unavailable ALLI SCHOFIELD MD Unavailable Unavailable ALLI SCHOFIELD MD Unavailable Unavailable ALLI SCHOFIELD MD Unavailable Unavailable ALLI SCHOFIELD MD Unavailable Unavailable ALLI SCHOFIELD MD Unavailable Unavailable ALLI SCHOFIELD MD Unavailable Unavailable ALLI SCHOFIELD MD Unavailable Unavailable ALLI SCHOFIELD MD Unavailable Unavailable ALLI SCHOFIELD MD Unavailable Unavailable ALLI SCHOFIELD MD Unavailable Unavailable ALLI SCHOFIELD MD Unavailable Unavailable Re-disclosure Warning The records that you are about to access may contain information from federally-assisted alcohol or drug abuse programs. If such information is present, then the following federally mandated warning applies: This information has been disclosed to you from records protected by federal confidentiality rules (42 CFR part 2). The federal rules prohibit you from making any further disclosure of this information unless further disclosure is expressly permitted by the written consent of the person to whom it pertains or as otherwise permitted by 42 CFR part 2. A general authorization for the release of medical or other information is NOT sufficient for this purpose. The Federal rules restrict any use of the information to criminally investigate or prosecute any alcohol or drug abuse patient.The records that you are about to access may contain highly sensitive health information, the redisclosure of which is protected by Article 27-F of the [facility] Public Health law. If you continue you may have access to information: Regarding HIV / AIDS; Provided by facilities licensed or operated by the [facility] Office of Mental Health; or Provided by the [facility] Office for People With Developmental Disabilities. If such information is present, then the following [facility] mandated warning applies: This information has been disclosed to you from confidential records which are protected by state law. State law prohibits you from making any further disclosure of this information without the specific written consent of the person to whom it pertains, or as otherwise permitted by law. Any unauthorized further disclosure in violation of state law may result in a fine or fci sentence or both. A general authorization for the release of medical or other information is NOT sufficient authorization for further disc losure. Allergies and Adverse Reactions Type Description Substance Reaction Status Data Source(s ) Drug allergy Sulfa (Sulfonamide Antibiotics) Sulfa (Sulfonami de Antibiotics) "BLEW UP LIKE A BALLOON" [facility] Drug allergy Sulfa Antibiotics Sulfa Antibiotics Active BARDOLPH (Ajay You MD [facility]) naproxen naproxen naproxen Rash Active eCW1 ([facility]) simvastatin simvastatin simvastatin CPK, myalgias Active eCW1 ([facility]) pravastatin pravastatin Pravastatin Sodium 40 MG Oral Tablet myalgias Active eCW1 ([facility]) sulfa sulfa sulfa severe edema Active eCW1 ([facility]) PT DENIES ANY ALLERGIES BESIDES SULFA PT DENIES ANY ALLERGIE S BESIDES SULFA PT DENIES ANY ALLERGIES BESIDES SULFA Unknown Active eCW1 ([facility]) simvastatin simvastatin simvastatin CPK, myalgias Active eCW1 ([facility]) pravastatin pravastatin Pravastatin Sodium 40 MG Oral Tablet myalgias Active eCW1 ([facility]) sulfa sulfa sulfa severe edema Active eCW1 ([facility]) naproxen naproxen naproxen Rash Active eCW1 ([facility]) naproxen naproxen naproxen Rash Active eCW1 ([facility]) PT DENIES ANY ALLERGIES BESIDES SULFA PT DENIES ANY ALLERGIE S BESIDES SULFA PT DENIES ANY ALLERGIES BESIDES SULFA Unknown Active eCW1 ([facility]) pravastatin pravastatin Pravastatin Sodium 40 MG Oral Tablet myalgias Active eCW1 ([facility]) simvastatin simvastatin simvastatin CPK, myalgias Active eCW1 ([facility]) sulfa sulfa sulfa severe edema Active eCW1 ([facility]) Family History Family Member Name Family Member Gender Family Member Status Date o f Status Description Data Source(s) Unknown Unknown Problem MEDENT ([facility]) Unknown Male Problem MEDENT ([facility] ) Unknown Female Problem [facility]ENT ([facility] Unknown Female Encounters Encounter Providers Location Date Indications Data Source(s ) Unknown [address] [facility] [address] 06/26/2020 12:00:00 AM EST eCW1 ([facility]) Office Visit, Est Pt., Level 3 PC [address] [place] [address] 06/23/2020 12:00:00 AM EST eCW1 ([facility]) Outpatient [address] [facility], [facility] [address] 05/23/2020 12:00:00 AM EST eCW1 ([facility]) [place] [address] [facility] [address] 05/23/2020 12:00:00 AM EST eCW1 ([facility]) Unknown [address] [facility] [address] 05/23/2020 12:00:00 AM EST eCW1 ([facility]) Office Visit Attender: Thalia FAY PA-C Physical Therapy 05/04/2020 01:30:00 PM EST MEDENT ([facility]) [place] [address] [facility] [address] 05/02/2020 12:00:00 AM EST eCW1 ([facility]) Office Visit Attender: Thalia FAY PA-C Physical Therapy 04/26/2020 02:15:00 PM EST MEDENT ([facility]) Office Visit Attender: ALLI SCHOFIELD MD Physical Therapy 08:30:00 AM EST MEDENT ([facility]) [place] [address] [facility] [address] 04/12/2020 12:00:00 AM EDT eCW1 ([facility]) [place]patient [address] [facility] [address] 04/05/2020 12:00:00 AM EDT eCW1 ([facility]) Outpatient Attender: ALLI SCHOFIELD MD Physical Therapy 11:00:00 AM EDT MEDENT ([facility]) Outpatient<td ID="encounterTypeDescripti onID0">3 - 4 WK Post CAT SX</td><td>Moses Burns DO</td><td>Ajay Leyva MD [facility]</td><td>02/23/2020</td><td>11:46AM</td><td>12:28PM</td><td><content ID="encounterDiagnosisID0-0">Pseudophakia</content></td> Attender: MOSES Box MD PLL 02/23/2020 11:46:00 AM EDT - 02/23/2020 12:28:00 PM EDT Pseudophakia VALERIA (Ajay You MD [facility]) Pseudophakia Outpatient Attender: ALLI SCHOFIELD MD Physical Therapy 01:45:00 PM EDT MEDENT ([facility] ) Outpatient<td ID="encounterTypeDescripti onID1">1 Week Post OP</td><td>Moses Burns DO</td><td>Ajay Leyva MD [facility]</td><td>01/28/2020</td><td>8:53AM</td><td>9:39AM</td><td><content ID="encounterDiagnosisID1-0">Pseudophakic - Right Eye</content></td> Attender: MOSES Box MD [facility] 01/28/2020 08:53:00 AM EDT - 01/28/2020 09:39:00 AM EDT Pseudophakic - Right Eye VALERIA (Ajay ramon MD [facility]) Pseudophakic - Right Eye Outpatient Attender: MOSES BURNS DO 0 01/24/2020 12:14:00 PM EDT - 01/24/2020 02:05:00 PM EDT [facility] Patient discharged. Outpatient<td ID="encounterTypeDescripti onID2">SAME DAY POST OP</td><td>Moses Burns DO</td><td>[facility]</td><td>01/24/2020</td><td>6:21AM</td><td>6:24AM</td><td></td> Attender: MOSES BURNS DO [facility] 01/24/2020 06:21:00 AM EDT - 01/24/2020 06:24:00 AM EDT [facility] (Ajay ramon MD [facility]) Outpatient<td ID="encounterTypeDescripti onID3">Extracapsular cataract removal w/IOL implant</td><td>Moses Burns DO</td><td>[facility]</td><td>01/24/2020</td><td>6:20AM</td><td>6:25AM</td><td></td> Attender: MOSES BURNS DO [facility] 01/24/2020 06:20:00 AM EDT - 01/24/2020 06:25:00 AM EDT [facility] (Ajay ramon MD [facility]) Outpatient Attender: [employer]INTE[employer]CE-C EMERGENCY ROOM-LAB REF 01/19/2020 08:39:00 AM EDT - 01/19/2020 08:39:00 AM EDT [facility]ital Outpatient<td ID="encounterTypeDescripti onID4">POST OP VISIT WITH PRE- OP</td><td>Moses Burns DO</td><td>Ajay Leyva MD [facility]</td><td>01/18/2020</td><td>9:17AM</td><td>10:19AM</td><td><content ID="encounterDiagnosisID4-0">Cataract Senile Nuclear</content>, <content ID="encounterDiagnosisID4-1">Pseudophakic - Right Eye</content></td> Attender: MOSES Box MD [facility] 01/18/2020 09:17:00 AM EDT - 01/18/2020 10:19:00 AM EDT Pseudophakic - Right EyeCataract Senile Nuclear [facility] (Ajay You MD [facility]) 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 Outpatient<td ID="encounterTypeDescripti onID5">SAME DAY POST OP</td><td>Moses Burns DO</td><td>[facility]</td><td>01/10/2020</td><td>7:38AM</td><td>7:38AM</td><td></td> Attender: MOSES GRANT [facility] 01/10/2020 07:38:00 AM EDT - 01/10/2020 07:38:00 AM EDT [facility] (Ajay ramon MD [facility]) Outpatient<td ID="encounterTypeDescripti onID6">Extracapsular cataract removal w/IOL implant</td><td>Moses Burns DO</td><td>[facility]</td><td>01/10/2020</td><td>6:54AM</td><td>6:54AM</td><td></td> Attender: MOSES BURNS [facility] 01/10/2020 06:54:00 AM EDT - 01/10/2020 06:54:00 AM EDT [facility] (Ajay ramon MD [facility]) Outpatient Attender: [facility] CEDEÑOP- EMERGENCY ROOM-LAB REF 01/05/2020 07:58:00 AM EDT - 01/05/2020 07:58:00 AM EDT [facility] pital Outpatient<td ID="encounterTypeDescripti onID7">1 WK PREOP FOR SURGERY</td><td>Moses Burns DO</td><td>Ajay Leyva MD [facility]</td><td>01/03/2020</td><td>9:39AM</td><td>10:21AM</td><td><content ID="encounterDiagnosisID7-0">Cataract Senile Nuclear</content></td> Attender: MOSES Box MD [facility] 01/03/2020 09:39:00 AM EDT - 01/03/2020 10:21:00 AM EDT Cataract Senile Nuclear VALERIA (Ajay ramon MD [facility]) Cataract Senile Nuclear Outpatient<td ID="encounterTypeDescripti onID8">NEW PATIENT WITH REFERRAL</td><td>Moses Burns DO</td><td>Ajay Leyva MD [facility]</td><td>12/31/2019</td><td>9:25AM</td><td>10:09AM</td><td><content ID="encounterDiagnosisID8-0">Dry Eye Syndrome</content>, <content ID="encounterDiagnosisID8-1">Cataract Senile Nuclear</content>, <content ID="encounterDiagnosisID8-2">Vitreous Disorders Degeneration</content></td> Attender: MOSES Box MD [facility] 12/31/2019 09:25:00 AM EDT - 12/31/2019 10:09:00 AM EDT Vitreous Disorders DegenerationCataract Senile NuclearDry Eye Syndrome BARDOLPH (Ajay You MD [facility]) 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 [facility] Dermatology [address] [place] [address] 12/22/2019 12:00:00 AM EDT eCW1 ([facility]) Outpatient Attender: Derrek Burns MD Main Office 12/09/2019 10:45:00 AM EDT MEDENT ([facility]) Outpatient [address] [place] [address], [facility] [address] 11/18/2019 12:00:00 AM EDT eCW1 ([facility]) Outpatient 10/31/2019 07:19:00 AM EDT [facility] [address] [address] 10/21/2019 12:00:00 AM EDT eCW1 ([facility]) [address] [place] [address] 10/20/2019 12:00:00 AM EDT eCW1 ([facility]) [address] [place] [address] 10/20/2019 12:00:00 AM EDT eCW1 ([facility]) Outpatient 09/16/2019 05:25:00 AM EDT [facility] Dermatology Center [address] [place] [address] 09/01/2019 12:00:00 AM EDT eCW1 ([facility]) [address] [address] 08/27/2019 12:00:00 AM EDT eCW1 ([facility]) [facility] [place] [address] [facility] [address] 08/26/2019 12:00:00 AM EDT eCW1 ([facility]) [facility] [address] [place] [address] 08/23/2019 12:00:00 AM EDT eCW1 ([facility]) Outpatient 08/12/2019 08:01:00 PM EST [facility] [place] [address] 06/14/2019 12:00:00 AM EST eCW1 ([facility]) Immunizations Vaccine Date Status Description Data Source(s) Tdap 05/23/2020 12:07:00 PM EST completed e CW1 ([facility]) Tdap 05/23/2020 12:07:00 PM EST completed e CW1 ([facility]) Tdap 05/23/2020 12:07:00 PM EST completed e CW1 ([facility]) Tdap 05/23/2020 12:07:00 PM EST completed e CW1 ([facility]) Tdap 05/23/2020 12:07:00 PM EST completed e CW1 ([facility]) VARICELLA-ZOSTER VIRUS GLYCOPROTEIN E,REC/AS01B ADJUVA NT/PF 05/02/2020 12:00:00 AM EST completed [facility] influenza, recombinant, quadrIvalent,injectable, prese rvative free 04/05/2020 11:45:00 AM EDT completed eCW1 ([facility]) influenza, recombinant, quadrIvalent,injectable, prese rvative free 04/05/2020 11:45:00 AM EDT completed eCW1 ([facility]) influenza, recombinant, quadrIvalent,injectable, prese rvative free 04/05/2020 11:45:00 AM EDT completed eCW1 ([facility]) influenza, recombinant, quadrIvalent,injectable, prese rvative free 04/05/2020 11:45:00 AM EDT completed eCW1 ([facility]) influenza, recombinant, quadrIvalent,injectable, prese rvative free 04/05/2020 11:45:00 AM EDT completed eCW1 ([facility]) influenza, recombinant, quadrIvalent,injectable, prese rvative free 04/05/2020 11:45:00 AM EDT completed eCW1 ([facility]) influenza, recombinant, quadrIvalent,injectable, prese rvative free 04/05/2020 11:45:00 AM EDT completed eCW1 ([facility]) influenza, recombinant, quadrIvalent,injectable, prese rvative free 04/05/2020 11:45:00 AM EDT completed eCW1 ([facility]) Medications Medication Brand Name Start Date Product Form Dose Route Admi nistrative Instructions Pharmacy Instructions Status Indications Reaction Description Data Source(s) 250 mg 05/23/2020 12:00:00 AM EST tablet 6 TAKE TWO TABLETS BY MOUTH AT ONCE ON THE FIRST DAY THEN TAKE ONE DAILY THEREAFTER TAKE TWO TABLETS BY MOUTH AT ONCE ON THE FIRST DAY THEN TAKE ONE DAILY THEREAFTER SOLD: 05/23/2020 [facility] Zithromax Z-Robert 250 MG Zithromax Z-Robert 250 MG 05/23/2020 12:00:[address] active Zithromax Z-Robert 250 MG eC W1 ([facility]) Zithromax Z-Robert 250 MG Zithromax Z-Robert 250 MG 05/23/2020 12:00:[address] active Zithromax Z-Robert 250 MG eC W1 ([facility]) Zithromax Z-Robert 250 MG Zithromax Z-Robert 250 MG 05/23/2020 12:00:[address] active Zithromax Z-Robert 250 MG eC W1 ([facility]) 2 ML Sodium Hyaluronate 10 MG/ML Prefilled Syringe [Euflexxa ] Euflexxa 04/17/2020 12:00:00 AM EST active MEDENT ([facility]) 1 % 01/03/2020 12:00:00 AM EDT drops,suspension 2 DAY OF SURGERY, REMOVE PATCH START 1 DROP TWO TIMES A DAY IN THE RIGHT EYE DAY OF SURGERY, REMOVE PATCH START 1 DROP TWO TIMES A DAY IN THE RIGHT EYE SOLD: 01/03/2020 [facility] 0.075 % 01/03/2020 12:00:00 AM EDT drops 5 THREE DAYS PRIOR TO SURGERY, START 1 DROP TWO TIMES A DAY IN THE RIGHT EYE THREE DAYS PRIOR TO SURGERY, START 1 DROP TWO TIMES A DAY IN THE RIGHT EYE SOLD: 01/03/2020 [facility] besifloxacin 6 MG/ML Ophthalmic Suspensi on [Besivance] Besivance 0.6% Ophthalmic Suspension Besivance 0.6% Ophthalmic Suspension 01/03/2020 12:00:00 AM EDT aborted besifloxacin 6 MG/ML Ophthalmic Suspension [Besivance] [facility] (Ajay You MD [facility]) 0.6 % 01/03/2020 12:00:00 AM EDT drops,suspension 5 THREE DAYS PRIOR TO SURGERY, START 1 DROP THREE TIMES A DAY IN THE RIGHT EYE THREE DAYS PRIOR TO SURGERY, START 1 DROP THREE TIMES A DAY IN THE RIGHT EYE SOLD: 01/24/2020 [facility] 1 % 01/03/2020 12:00:00 AM EDT drops,suspension 2 DAY OF SURGERY, REMOVE PATCH START 1 DROP TWO TIMES A DAY IN THE RIGHT EYE DAY OF SURGERY, REMOVE PATCH START 1 DROP TWO TIMES A DAY IN THE RIGHT EYE SOLD: 01/21/2020 [facility] 0.075 % 01/03/2020 12:00:00 AM EDT drops 5 THREE DAYS PRIOR TO SURGERY, START 1 DROP TWO TIMES A DAY IN THE RIGHT EYE THREE DAYS PRIOR TO SURGERY, START 1 DROP TWO TIMES A DAY IN THE RIGHT EYE SOLD: 01/21/2020 [facility] Inveltys 1% Ophthalmic Suspension Inveltys 1% Ophthalmic Destini pension 01/03/2020 12:00:00 AM EDT aborted loteprednol etabonate 10 MG/ML Ophthalmic Suspension [Inveltys] [facility] (Ajay You MD [facility]) 0.6 % 01/03/2020 12:00:00 AM EDT drops,suspension 5 THREE DAYS PRIOR TO SURGERY, START 1 DROP THREE TIMES A DAY IN THE RIGHT EYE THREE DAYS PRIOR TO SURGERY, START 1 DROP THREE TIMES A DAY IN THE RIGHT EYE SOLD: 01/03/2020 [facility] BromSite 0.075% Ophthalmic Solution BromSite 0.075% Ophthalm ic Solution 01/03/2020 12:00:00 AM EDT aborted bromfenac 0.75 MG/ML Ophthalmic Solution [Bromsite] [facility] (Ajay You MD [facility]) Loratadine 10 MG Oral Tablet [Claritin] Claritin 10 MG Oral Tablet Claritin 10 MG Oral Tablet 12/31/2019 12:00:00 AM EDT 1 act john loratadine 10 MG Oral Tablet [Claritin] [facility] (Ajay You MD [facility]) Fluticasone Propionate 50 MCG/ACT Nasal Suspension Flu ticasone Propionate 50 MCG/ACT Nasal Suspension 12/31/2019 12:00:00 AM EDT 1 active fluticasone propionate 0.05 MG/ACTUAT Metered Dose Nasal [place] [facility] (Ajay You MD [facility]) Iron 325 (65 Fe) MG Oral Tablet Iron 325 (65 Fe) MG Oral Tab let 12/31/2019 12:00:00 AM EDT 1 active Iron [facility] (Ajay You MD [facility]) Vitamin E 400 UNT Oral Tablet Vitamin E 400 UNIT Oral Tablet Vitamin E 400 UNIT Oral Tablet 12/31/2019 12:00:00 AM EDT 1 active vitamin E 180 MG Oral Tablet [facility] (Ajay You MD [facility]) Aspirin Adult Low Dose 81 MG Oral Tablet Delayed Relea se Aspirin Adult Low Dose 81 MG Oral Tablet Delayed Release 12/31/2019 12:00:00 AM EDT 1 active Aspirin Adult Low Dose [facility] (Ajay You MD [facility]) Ezetimibe 10 MG Oral Tablet Ezetimibe 10 MG Oral Tablet 12/14 12:00:00 AM EDT 1 active Ezetimibe [facility] (Ajay You MD [facility]) Omeprazole 20 MG Delayed Release Oral Ta blet Omeprazole 20 MG Oral Tablet Delayed Release Omeprazole 20 MG Oral Tablet Delayed Release 0 12:00:00 AM EDT 1 active omeprazole 20 MG Delayed Release Oral Tablet [facility] (Ajay You MD [facility]) Multivitamin Oral Tablet Multivitamin Oral Tablet 12/31/2019 12:00: 00 AM EDT 1 active Multivitamin [facility] (Romeo You MD [facility]) Lutein 20 MG Oral Tablet Lutein 20 MG Oral Tablet 12/31/2019 12:00: 00 AM EDT 1 active lutein 20 MG Oral Tablet [facility] (Ajay You MD [facility]) 0.1 % 12/22/2019 12:00:00 AM EDT cream 15 APPLY TO THE EAR IF ITCHY WITH SCALE ONCE DAILY APPLY TO THE EAR IF ITCHY WITH SCALE ONCE DAILY SOLD: 12/22/2019 [facility] mometasone furoate 1 MG/ML Topical Cream Mometasone Fu roate 0.1 % Mometasone Furoate 0.1 % 12/22/2019 12:00:00 AM EDT 1.0 {application} active Mometasone Furoate 0.1 % eCW1 ([facility]) mometasone furoate 1 MG/ML Topical Cream Mometasone Fu roate 0.1 % Mometasone Furoate 0.1 % 12/22/2019 12:00:00 AM EDT 1.0 {application} active Mometasone Furoate 0.1 % eCW1 ([facility]) mometasone furoate 1 MG/ML Topical Cream Mometasone Fu roate 0.1 % Mometasone Furoate 0.1 % 12/22/2019 12:00:00 AM EDT 1.0 {application} active Mometasone Furoate 0.1 % eCW1 ([facility]) mometasone furoate 1 MG/ML Topical Cream Mometasone Fu roate 0.1 % Mometasone Furoate 0.1 % 12/22/2019 12:00:00 AM EDT 1.0 {application} suspended Mometasone Furoate 0.1 % eCW1 ([facility]) mometasone furoate 1 MG/ML Topical Cream Mometasone Fu roate 0.1 % Mometasone Furoate 0.1 % 12/22/2019 12:00:00 AM EDT 1.0 {application} suspended Mometasone Furoate 0.1 % eCW1 ([facility]) mometasone furoate 1 MG/ML Topical Cream Mometasone Fu roate 0.1 % Mometasone Furoate 0.1 % 12/22/2019 12:00:00 AM EDT 1.0 {application} active Mometasone Furoate 0.1 % eCW1 ([facility]) mometasone furoate 1 MG/ML Topical Cream Mometasone Fu roate 0.1 % Mometasone Furoate 0.1 % 12/22/2019 12:00:00 AM EDT 1.0 {application} suspended Mometasone Furoate 0.1 % eCW1 ([facility]) ferrous sulfate 325 MG Delayed Release O ral Tablet Ferrous Sulfate 325 (65 Fe) MG Ferrous Sulfate 325 (65 Fe) MG 10/21/2019 12:00:00 AM EDT active 1 tablet eCW1 ([facility]) 1 % 08/26/2019 12:00:00 AM EDT gel 100 APPLY TOPICALLY FOUR TIMES A DAY NEEDED DIRECTED APPLY TOPICALLY FOUR TIMES A DAY NEEDED DIRECTED SOLD: 08/27/2019 [facility] 10 mg 08/26/2019 12:00:00 AM EDT tablet 90 TAKE ONE TABLET BY MOUTH EVERY DAY TAKE ONE TABLET BY MOUTH EVERY DAY SOLD: 08/27/2019 [facility] Diclofenac Sodium 0.01 MG/MG Topical Gel [Voltaren] Voltaren 1 % Voltaren 1 % 08/26/2019 12:00:00 AM EDT active as directed eCW1 ([facility]) ezetimibe 10 MG Oral Tablet EZETIMIBE 08/26/2019 12:00:00 AM EDT table t 90 TAKE ONE TABLET BY MOUTH EVERY DAY TAKE ONE TABLET BY MOUTH EVERY DAY SOLD: 03/19/2020 [facility] Diclofenac Sodium 0.01 MG/MG Topical Gel [Voltaren] Voltaren 1 % Voltaren 1 % 08/26/2019 12:00:00 AM EDT active as directed eCW1 ([facility]) Diclofenac Sodium 0.01 MG/MG Topical Gel [Voltaren] Voltaren 1 % Voltaren 1 % 08/26/2019 12:00:00 AM EDT active as directed eCW1 ([facility]) ezetimibe 10 MG Oral Tablet EZETIMIBE 08/26/2019 12:00:00 AM EDT table t 90 TAKE ONE TABLET BY MOUTH EVERY DAY TAKE ONE TABLET BY MOUTH EVERY DAY SOLD: 06/27/2020 [facility] 10 mg 08/26/2019 12:00:00 AM EDT tablet 90 TAKE ONE TABLET BY MOUTH EVERY DAY TAKE ONE TABLET BY MOUTH EVERY DAY SOLD: 11/24/2019 [facility] 50 mcg/actuation 08/11/2019 12:00:00 AM EST spray,suspension 32 SPRAY TWO SPRAYS IN EACH NOSTRIL DAILY SPRAY TWO SPRAYS IN EACH NOSTRIL DAILY SOLD: 04/03/2020 [facility] 50 mcg/actuation 08/11/2019 12:00:00 AM EST spray,suspension 32 SPRAY TWO SPRAYS IN EACH NOSTRIL DAILY SPRAY TWO SPRAYS IN EACH NOSTRIL DAILY SOLD: 08/13/2019 [facility] 50 mcg/actuation 08/11/2019 12:00:00 AM EST spray,suspension 32 SPRAY TWO SPRAYS IN EACH NOSTRIL DAILY SPRAY TWO SPRAYS IN EACH NOSTRIL DAILY SOLD: 11/24/2019 [facility] Fluticasone Propionate Fluticasone Propionate 08/11/2019 12:00:[address] active [facility] ([facility], ) 10 mg 03/12/2019 12:00:00 AM EDT tablet 30 TAKE ONE TABLET BY MOUTH EVERY DAY TAKE ONE TABLET BY MOUTH EVERY DAY SOLD: 07/29/2019 [facility] 10 mg 03/12/2019 12:00:00 AM EDT tablet 30 TAKE ONE TABLET BY MOUTH EVERY DAY TAKE ONE TABLET BY MOUTH EVERY DAY SOLD: 05/14/2019 [facility] Insurance Providers Payer name Policy type / Coverage type Policy ID Covered constitution party ID Covered constitution party's relationship to cota Policy Cota Plan Information [facility] HEALTH CARE OPTIONS [id number] SP [id number] MEDICARE [id number] SP [id number] [facility] HEALTH CARE OPTIONS [id number] S [id number] [facility] MEDICARE DIVISION [id number] S [id number] [place]ICARE - [place] [id number] S [id number] Medicare Part B [facility] Other 0 Se lf 0 [facility] MEDICARE DIVISION [id number] S [id number] [place]ICARE [place] [id number] S [id number] [facility] HEALTH CARE OPTIONS [id number] S [id number] AAR O [id number] S [id number] MEDICARE C [id number] S [id number] [employer] BC[employer] B [id number] S [id number] [facility] HEALTH CARE OPTIONS [id number] SP [id number] MEDICARE [id number] SP [id number] [id number] ANSI-Commercial [id number] ANSI-Medicare Part B [id number] ANSI-Medicare Part B [id number] ANSI-Medicare Part B [id number] ANSI-Medicare Part B [id number] ANSI-Commercial [id number] ANSI-Medicare Part B [id number] ANSI-Medicare Part B [id number] ANSI-Commercial [id number] [employer] Medigap Part B [id number] Self [id number] [place] Medicare Primary [id number] Self [id number] A[employer] Medigap Part B [id number] Self [id number] [place] Medicare Primary [id number] Self [id number] ANSI-Commercial [id number] ANSI-Medicare Part B [id number] ANSI-Medicare Part B [id number] ANSI-Medicare Part B [id number] ANSI-Commercial [id number] ANSI-Medicare Part B [id number] MEDICARE BLUE PPO 306 [id number] SP [id number] Aarp Medigap Part B [id number] Self [id number] Excell[employer] BCBS Medigap Part B [id number] Self [id number] [facility] Medicare Commercial [id number] Self [id number] MEDICARE BLUE PPO 306 [id number] SP [id number] EXCELLUS MEDICARE BLUE PPO G [id number] Self [id number] ANSI-Medicare Part B [id number] ANSI-Medicare Part B [id number] MEDICARE BLUE PPO 306 [id number] SP [id number] MEDICARE BLUE PPO 306 [id number] SP [id number] Excellus [facility] Medigap Part B [id number] Self [id number] ANSI-Medicare Part B [id number] ANSI-Medicare Part B [id number] ANSI-Medicare Part B [id number] [facility] Medigap Part B [id number] Self [id number] [place] Medigap Part B [id number] Self [id number] MVP (Medicare) Medigap Part B [id number] Self [id number] BCBS [facility] Medigap Part B [id number] Self [id number] [facility]Preferred CR Medigap Part B [id number] Self [id number] [facility] Commercial [id number] Self [id number] United[employer]care Medicare Commercial [id number] Self [id number] ANSI-Medicare Part B [id number] ANSI-Medicare Part B [id number] MEDICARE COMPLETE [id number] SP [id number] MVP [facility] [id number] Self [id number] [place] Medigap Part B [id number] Self [id number] MVP (Medicare) Medigap Part B [id number] Self [id number] MEDICARE COMPLETE [id number] SP [id number] MEDICARE COMPLETE [id number] SP [id number] [employer]/Medicare Commercial [id number] Self [id number] MEDICARE COMPLETE [id number] SP [id number] MEDICARE COMPLETE [id number] SP [id number] MEDICARE COMPLETE-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 Problem 06/23/2020 12:00:00 AM EST eCW1 ([facility]) Z00.00 [id number] Medicare annual wellness visit, subsequen t Problem 05/25/2020 12:00:00 AM EST eCW1 ([facility]) V43.1 Pseudophakia Pseudophakia Problem 02/23/2020 12:00:00 A M EDT [facility] (Ajay You MD [facility]) 02314314 Pseudophakic - Right Eye Pseudophakic - Right Eye Prob abel 01/18/2020 12:00:00 AM EDT [facility] (Ajay You MD [facility]) 379.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 Vitreous Disorders Deg eneration Problem 12/31/2019 12:00:00 AM EDT [facility] (Ajay You MD [facility]) 375.15 Dry Eye Syndrome Dry Eye Syndrome Problem 12/31/2019 12 :00:00 AM EDT [facility] (Ajay You MD [facility]) 366.16 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 m 12/31/2019 12:00:00 AM EDT - 02/23/2020 12:00:00 AM EDT [facility] (Ajay You MD [facility]) L81.4 [id number] Lentigines Problem 12/22/2019 12:00:00 AM ED T eCW1 ([facility]) L57.0 557657124 Actinic keratoses Problem 12/22/2019 12:00:0 0 AM EDT eCW1 ([facility]) D22.30 386634339 Melanocytic nevi of face Problem 12/22/2019 12:00:00 AM EDT eCW1 ([facility]) L30.9 852212256 Dermatitis of external ear Problem 0 12:00:00 AM EDT eCW1 ([facility]) L82.1 823650118 SK (seborrheic keratosis) Problem 12/22/2019 12:00:00 AM EDT eCW1 ([facility]) D22.5 595107718 Melanocytic nevi of trunk Problem 12/22/2019 12:00:00 AM EDT eCW1 ([facility]) D22.72 946472769 Melanocytic nevi of left lower limb, incl uding hip Problem 12/22/2019 12:00:00 AM EDT eCW1 ([facility]) D22.71 904815968 Melanocytic nevi of right lower limb, inc luding hip Problem 12/22/2019 12:00:00 AM EDT eCW1 ([facility]) L85.3 13736384 Xerosis cutis Problem 12/22/2019 12:00:00 AM EDT eCW1 ([facility]) D22.62 136418184 Melanocytic nevi of left upper l imb, including shoulder Problem 12/22/2019 12:00:00 AM EDT eCW1 ([facility]) D22.61 680687510 Melanocytic nevi of right upper limb, including shoulder Problem 12/22/2019 12:00:00 AM EDT eCW1 ([facility]) M17.10 576710084 Arthritis of knee Problem 08/26/2019 12:00:0 0 AM EDT eCW1 ([facility]) M46.1 13933058 Sacroiliac inflammation Problem 08/26/2019 1 2:00:00 AM EDT eCW1 ([facility]) M46.1 43980956 Sacroiliac inflammation Problem 08/26/2019 1 2:00:00 AM EDT eCW1 ([facility]) M17.10 899564380 Arthritis of knee Problem 08/26/2019 12:00:0 0 AM EDT eCW1 ([facility]) H25.12 Age-related nuclear cataract, left eye A GE-RELATED NUCLEAR CATARACT, LEFT EYE Diagnosis 01/24/2020 12:14:00 PM EDT [facility] Z01.818 Encounter for other preprocedural examin ation ENCOUNTER FOR OTHER PREPROCEDURAL EXAMINATION Diagnosis 01/19/2020 08:39:00 AM EDT [facility] H25.11 Age-related nuclear cataract, right eye AGE-RELATED NUCLEAR CATARACT, RIGHT EYE Diagnosis 01/10/2020 09:49:00 AM EDT [facility] Surgeries/Procedures Procedure Description Date Indications Data Source(s) Immunization: Boostrix 0.5mL IM (TDAP) 05/23/2020 12:0 0:00 AM EST eCW1 ([facility]) ARTHROCENTESIS ASPIR&/INJECTION MAJOR JT/BURSA 12:00:00 AM EST MEDENT ([facility] ) ECHO TTHRC R-T 2D W/WOM-MODE COMPL SPEC&COLR DOP 05/02 12:00:00 AM EST MEDENT ([facility]) ARTHROCENTESIS ASPIR&/INJECTION MAJOR JT/BURSA 12:00:00 AM EST [facility] ([facility] ) ARTHROCENTESIS ASPIR&/INJECTION MAJOR JT/BURSA 12:00:00 AM EST [facility] ([facility] ) Immunization: Flublok Quadrivalent (18 years & older) 0.5mL IM (Influenza) 04/05/2020 12:00:00 AM EDT eCW1 ([facility]) MRI Lower Extremity Any Joint 02/29/2020 12:00:00 AM E DT MEDENT ([facility]) MRI Lower Extremity Any Joint 02/29/2020 12:00:00 AM E DT MED[facility] ([facility]) Surgical / procedural history : Knee-1969 Surgical / p rocedural history : Knee-196902/23/2020 12:00:00 AM EDT [facility] (Frankie You MD [facility]) Extracapsular extraction of lens (procedure) History o f extracapsular cataract extraction PCIOL OD by Dr. Burns 01/10/2020 ~PCIOL OS by Dr. Burns 01/20/2020 02/23/2020 12:00:00 AM EDT [facility] (Frankie You MD [facility]) ARTHROCENTESIS ASPIR&/INJECTION MAJOR JT/BURSA 020 12:00:00 AM EDT MED[facility] ([facility]) RADIOLOGIC EXAM KNEE COMPLETE 4/MORE VIEWS 02/17/2020 12:00:00 AM EDT MEDENT ([facility]) LARYNGOSCOPY FLEXIBLE FIBEROPTIC DIAGNOSTIC 02/02/2020 12:00:00 AM EDT MEDENT ([facility], ) Extracapsular cataract removal with intr aocular lens implant (Left side, Related procedure/service by same physician during Post Op) Extracapsular cataract removal with intraocular lens implant (Left side, Related procedure/service by same physician during Post Op) 01/24/2020 12:00:00 AM EDT [facility] (Ajay You MD [facility]) OPH BMTRY PRTL COHER INTRFRMTRY IO LENS PWR MARISSA Ophtha lmic biometry - IOL Master with IOL calculation (Professional Comp., Left side) 01/18/2020 12:00:00 AM EDT [facility] (Ajay You MD [facility]) Extracapsular cataract removal with intraocular lens i mplant (Right Side) Extracapsular cataract removal with intraocular lens implant (Right Side) 01/10/2020 12:00:00 AM EDT [facility] (Ajay ramon MD [facility]) Ophthalmic biometry - IOL Master with IO L calculation (WAIVER OF LIABILITY ON FILE (ABN)) Ophthalmic biometry - IOL Master with IO L calculation (WAIVER OF LIABILITY ON FILE (ABN)) 01/03/2020 12:00:00 AM EDT [facility] (Ajay You MD [facility]) Intermediate Eye Exam Established Patient (Signi/Sep E miko. & Man.) Intermediate Eye Exam Established Patient (Signi/Sep Eval. & Man.) 01/03/2020 12:00:00 AM EDT [facility] (Ajay You MD [facility]) Medical Eye Exam Medical Eye Exam 12/31/2019 12:00:00 AM EDT [facility] (Ajay You MD [facility]) Office Visit, Est Pt., Level 4 PC 10/21/2019 12:00:00 AM EDT eCW1 ([facility]) Office Visit, Est Pt., Level 2 FC 10/20/2019 12:00:00 AM EDT eCW1 ([facility]) LARYNGOSCOPY FLEXIBLE FIBEROPTIC DIAGNOSTIC 10/18/2019 12:00:00 AM EDT MEDENT ([facility], ) URINE-NO MICRO 08/26/2019 12:00:00 AM EDT eCW1 ([facility]) VENIPUNCT, ROUTINE* 08/23/2019 12:00:00 AM EDT eCW1 ([facility]) LARYNGOSCOPY FLEXIBLE FIBEROPTIC DIAGNOSTIC 08/11/2019 12:00:00 AM EST [facility] ([facility], ) LARYNGOSCOPY FLEXIBLE FIBEROPTIC DIAGNOSTIC 06/23/2019 12:00:00 AM EST [facility] ([facility], ) Results ID Date Data Source [id number] 06/23/2020 11:00:00 AM EST [facility] Name Value Range Interpretation Code Description Data Melony rce(s) Supporting Document(s) SARS coronavirus 2 RNA Not Detected [facility] [place] This lab was ordered by [facility] and reported by [facility]. ID Date Data Source [id number] 01/27/2020 07:23:00 AM EDT [facility] Preoperative Diagnosis:1. Visually sign ificant nuclear sclerotic cataract, left eye. Postoperative Diagnosis:1. Same. Procedure:1. Cataract extraction with use of phacoemulsification, and placement of intraocular lens, AU00T0 19.5 D, left eye. Anesthesia: Local with MAC. Complications: None. Postoperative Condition: Stable. Indications for surgery: 1. Blurred vision affecting patient s activities of daily living. Description of procedure: The patient was seen in the preoperative area and properly identified. The correct operative eye was identified and marked. The patient received topical anesthetic, antibiotics, and topical dilating drops. The patient was then transferred to the operating room. The correct side was re-identified and a timeout was performed. The eye was prepped and draped in a sterile fashion. The eyelids were isolated with Tegaderm tape and the lids were held open with an adjustable speculum. A 1.0mm paracentesis incision was made. Intraocular preservative fr ee Shugarcaine was then injected into the anterior chamber. Viscoelastic was then injected into the anterior chamber through the paracentesis. Using a 2.4mm sharp-tipped keratome, the anterior chamber was entered via a temporal clear cornea incision. A continuous curvilinear capsulorhexis was created with Utrata forceps. Hydrodissection was performed with BSS on a blunt cannula until the nucleus was able to rotate freely. The crystalline lens was phacoemulsified and aspirated. Irrigation/aspiration was used to remove the cortical material Cohesive viscoelastic was placed into the capsular bag to deepen it. The implant was placed into the capsular bag and allowed to unfold. Placement was confirmed by visualizing the anterior capsulorhexis. Irrigation/aspiration was used to remove the viscoelastic. The clear corneal incision was hydrated with BSS on a blunt cannula. The lens was well positioned. The incisions were then tested for leaks and found to be negative. The eye was then palpated for appropriate pressure and adjusted accordingly with BSS. The eyelid speculum was then carefully removed. A shield was placed over the eye. The patient tolerated the procedure well and was discharge to the recovery unit in a stable condition. Name Value Range Interpretation Code Description Data Melony rce(s) Supporting Document(s) ID Date Data Source [id number] 01/27/2020 07:08:[address] [facility] Preoperative Diagnosis:1. Visually sign ificant nuclear sclerotic cataract, right eye. Postoperative Diagnosis:1. Same. Procedure:1. Cataract extraction with use of phacoemulsification, and placement of intraocular lens, AU00T0 18.5 D, right eye. Anesthesia: Local with MAC. Complications: None. Postoperative Condition: Stable. Indications for surgery: 1. Blurred vision affecting patient s activities of daily living. Description of procedure: The patient was seen in the preoperative area and properly identified. The correct operative eye was identified and marked. The patient received topical anesthetic, antibiotics, and topical dilating drops. The patient was then transferred to the operating room. The correct side was re-identified and a timeout was performed. The eye was prepped and draped in a sterile fashion. The eyelids were isolated with Tegaderm tape and the lids were held open with an adjustable speculum. A 1.0mm paracentesis incision was made. Intraocular preservative free Shugarcaine was then injected into the anterior chamber. Viscoelastic was then injected into the anterior chamber through the paracentesis. Using a 2.4mm sharp-tipped keratome, the anterior chamber was entered via a temporal clear cornea incision. A continuous curvilinear capsulorhexis was created with Utrata forceps. Hydrodissection was performed with BSS on a blunt cannula until the nucleus was able to rotate freely. The crystalline lens was phacoemulsified and aspirated. Irrigation/aspiration was used to remove the cortical material Cohesive viscoelastic was placed into the capsular bag to deepen it. The implant was placed into the capsular bag and allowed to unfold. Placement was confirmed by visualizing the anterior capsulorhexis. Irrigation/aspiration was used to remove the viscoelastic. The clear corneal incision was hydrated with BSS on a blunt cannula. The lens was well positioned. The incisions were then tested for leaks and found to be negative. The eye was then palpated for appropriate pressure and adjusted accordingly with BSS. The eyelid speculum was then carefully removed. A shield was placed over the eye. The patient tolerated the procedure well and was discharge to the recovery unit in a stable condition. Name Value Range Interpretation Code Description Data Melony rce(s) Supporting Document(s) ID Date Data Source [id number] 01/20/2020 02:05:00 PM EDT [facility] Name Value Range Interpretation Code Description Data Melony rce(s) Supporting Document(s) SARS-CoV-2, JEREMIAS Not Detected Not Detected [facility] Testing was performed using the arnold(R) SARS-CoV-2 test.This test was developed and its performance characteristics determinedby [employer]. This test has not been FDA cleared orapproved. This test has been authorized by FDA under an Emergency UseAuthorization (EUA). This test is only authorized for the duration oftime the declaration that circumstances exist justifying theauthorization of the emergency use of in vitro diagnostic tests fordetection of SARS-CoV-2 virus and/or diagnosis of COVID-19 infectionunder section 564(b)(1) of the Act, 21 U.S.C. 360bbb-3(b)(1), unlessthe authorization is terminated or revoked sooner.When diagnostic testing is negative, the possibility of a falsenegative result should be considered in the context of a patient'srecent exposures and the presence of clinical signs and symptomsconsistent with COVID-19. An individual without symptoms of COVID-19and who is not shedding SARS-CoV-2 virus would expect to have anegative (not detected) result in this assay. ID Date Data Source [id number] 01/19/2020 08:00:00 AM EDT [facility] Name Value Range Interpretation Code Description Data Melony rce(s) Supporting Document(s) SARS coronavirus 2 RNA [facility] This lab was ordered by [facility] a nd reported by [facility]. ID Date Data Source [id number] 01/20/2020 02:05:00 PM EDT [facility] Name Value Range Interpretation Code Description Data Melony rce(s) Supporting Document(s) SARS COV2 Not Detected Not Detected [facility] Testing was performed using the arnold(R) SARS-CoV-2 test.This test was developed and its performance characteristicsdetermined by [employer]. This test has not beenFDA cleared or approved. This test has been authorized byFDA under an Emergency Use Authorization (EUA). This testis only authorized for the duration of time the declarationthat circumstances exist justifying the authorization ofthe emergency use of in vitro diagnostic tests fordetection of SARS-CoV-2 virus and/or diagnosis of COVID-19infection under section 564(b)(1) of the Act, 21 U.S.C.360bbb-3(b)(1), unless the authorization is terminated orrevoked sooner. When diagnostic testing is negative, thepossibility of a false negative result should be consideredin the context of a patient's recent exposures and thepresence of clinical signs and symptoms consistent withCOVID- 19. An individual without symptoms of COVID-19 andwho is not shedding SARS-CoV-2 virus would expect to have anegative (not detected) result in this assay.Per formed at: [facility] - [facility] [id number] Director: Michelle Tate MD, Phone: [phone] ID Date Data Source [id number] 01/06/2020 04:05:00 PM EDT [facility] Name Value Range Interpretation Code Description Data Melony rce(s) Supporting Document(s) SARS-CoV-2, JEREMIAS Not Detected Not Detected [facility] Testing was performed using the arnold(R) SARS-CoV-2 test.This test was developed and its performance characteristics determinedby [employer]. This test has not been FDA cleared orapproved. This test has been authorized by FDA under an Emergency UseAuthorization (EUA). This test is only authorized for the duration oftime the declaration that circumstances exist justifying theauthorization of the emergency use of in vitro diagnostic tests fordetection of SARS-CoV-2 virus and/or diagnosis of COVID-19 infectionunder section 564(b)(1) of the Act, 21 U.S.C. 360bbb-3(b)(1), unlessthe authorization is terminated or revoked sooner.When diagnostic testing is negative, the possibility of a falsenegative result should be considered in the context of a patient'srecent exposures and the presence of clinical signs and symptomsconsistent with COVID-19. An individual without symptoms of COVID-19and who is not shedding SARS-CoV-2 virus would expect to have anegative (not detected) result in this assay. ID Date Data Source [id number] 01/05/2020 08:00:00 AM EDT [facility] Name Value Range Interpretation Code Description Data Melony rce(s) Supporting Document(s) SARS coronavirus 2 RNA [facility] This lab was ordered by [facility] nd reported by [facility]. ID Date Data Source [id number] 01/06/2020 04:06:00 PM EDT [facility] Name Value Range Interpretation Code Description Data Melony rce(s) Supporting Document(s) SARS COV2 Not Detected Not Detected [facility] Testing was performed using the arnold(R) SARS-CoV-2 test.This test was developed and its performance characteristicsdetermined by [employer]. This test has not beenFDA cleared or approved. This test has been authorized byA under an Emergency Use Authorization (EUA). This testis only authorized for the duration of time the declarationthat circumstances exist justifying the authorization ofthe emergency use of in vitro diagnostic tests fordetection of SARS-CoV-2 virus and/or diagnosis of COVID-19infection under section 564(b)(1) of the Act, 21 U.S.C.360bbb-3(b)(1), unless the authorization is terminated orrevoked sooner. When diagnostic testing is negative, thepossibility of a false negative result should be consideredin the context of a patient's recent exposures and thepresence of clinical signs and symptoms consistent withCOVID- 19. An individual without symptoms of COVID-19 andwho is not shedding SARS-CoV-2 virus would expect to have anegative (not detected) result in this assay.Per formed at: [facility] [id number] Director: Michelle Tate MD, Phone: [phone] ID Date Data Source TOTAL IRON BINDING CAPACIT 11/18/2019 02:50:38 AM EDT eCW1 ( [facility]) Name Value Range Interpretation Code Description Data Melony rce(s) Supporting Document(s) 219 IRON (FE) eCW1 ([facility]) 315 TOTAL IRON BINDING CAPACITY eC W1 ([facility]) 69.5 PERCENT SATURATION eCW1 ([facility]) ID Date Data Source FERRITIN 11/18/2019 02:50:38 AM EDT eCW1 ([facility]) Name Value Range Interpretation Code Description Data Melony rce(s) Supporting Document(s) 46 FERRITIN eCW1 ([facility]) ID Date Data Source Reticulocyte Count Sysmex 11/18/2019 02:28:49 AM EDT eCW1 ([facility]) Name Value Range Interpretation Code Description Data Melony rce(s) Supporting Document(s) 1.7 RETICULOCYTE % eCW1 ([facility]) ID Date Data Source CBC - Complete Blood Count 11/18/2019 02:28:49 AM EDT eCW1 ( [facility]) Name Value Range Interpretation Code Description Data Melony rce(s) Supporting Document(s) 5.1 WHITE BLOOD COUNT eCW1 ([facility]) 91.6 MEAN CORPUSCULAR VOLUME eCW1 ( [facility]) 13.1 HEMOGLOBIN eCW1 (On license of [facility]) 4.64 RED BLOOD COUNT eCW1 ([facility]) 42.5 HEMATOCRIT eCW1 (On license of [facility]) 211 PLATELET COUNT, AUTOMATED eCW1 ([facility]) 20.6 RED CELL DISTRIBUTION WIDTH eC W1 ([facility]) 30.8 MEAN CORPUSCULAR HGB CONC eCW1 ([facility]) 28.2 MEAN CORPUSCULAR HEMOGLOBIN eC W1 ([facility]) ID Date Data Source FOLATE 10/20/2019 12:00:00 AM EDT eCW1 ([facility]) Name Value Range Interpretation Code Description Data Melony rce(s) Supporting Document(s) > 24.0 >5.4 FOLATE eCW1 ([facility]) ID Date Data Source FREE T4 & TSH PANEL 10/20/2019 12:00:00 AM EDT eCW1 ([facility]) Name Value Range Interpretation Code Description Data Melony rce(s) Supporting Document(s) 0.98 0.76-1.46 FREE T4 eCW1 ([facility]) 2.570 0.358-3.740 THYROID STIMULATING HORM ONE eCW1 ([facility]) ID Date Data Source [id number] 10/20/2019 12:00:00 AM EDT eCW1 ([facility]) Name Value Range Interpretation Code Description Data Melony rce(s) Supporting Document(s) Hemoglobin A1c/Hemoglobin.total in Blood 6.2 HEMOGLOBIN A1c eCW1 ([facility]) ID Date Data Source VITAMIN B12 LEVEL 10/20/2019 12:00:00 AM EDT eCW1 ([facility]) Name Value Range Interpretation Code Description Data Melony rce(s) Supporting Document(s) [id number] VITAMIN B12 LEVEL eCW1 ([facility]) ID Date Data Source Comprehensive Metabolic Profile (CMP) 10/20/2019 12:00:00 AM EDT eCW1 ([facility]) Name Value Range Interpretation Code Description Data Melony rce(s) Supporting Document(s) 82 70-100 GLUCOSE, FASTING eCW1 ([facility]) 12 7-18 BLOOD UREA NITROGEN eCW1 ([facility]) 0.98 0.70-1.30 CREATININE FOR GFR eCW1 ([facility]) > 60.0 >35 GLOMERULAR FILTRATION RATE eCW 1 ([facility]) 106 98-107 CHLORIDE LEVEL eCW1 ([facility]) 140 136-145 SODIUM LEVEL eCW1 ([facility]) 5.2 3.5-5.1 POTASSIUM SERUM eCW1 ([facility]) 27 21-32 CARBON DIOXIDE LEVEL eCW1 ([facility]) 55 12-78 ALT/SGPT eCW1 ([facility]) 9.9 8.8-10.2 CALCIUM LEVEL eCW1 ([facility]) 41 7-37 AST/SGOT eCW1 ([facility]) 7.6 6.4-8.2 TOTAL PROTEIN eCW1 ([facility]) 3.8 3.2-5.2 ALBUMIN eCW1 ([facility]) 0.7 0.2-1.0 BILIRUBIN,TOTAL eCW1 ([facility]) 74 45-117 ALKALINE PHOSPHATASE eCW1 ([facility]) 1.00 1.00-1.93 ALBUMIN/GLOBULIN RATIO eCW1 ([facility]) ID Date Data Source LIPID PANEL (CARDIAC RISK) 08/26/2019 12:00:00 AM EDT eCW1 ( [facility]) Name Value Range Interpretation Code Description Data Melony rce(s) Supporting Document(s) Triglyceride [Mass/volume] in Serum or Plasma by calculation 258 <150 TRIGLYCERIDES LEVEL eCW1 ([facility]) Cholesterol [Moles/volume] in Serum or Plasma 195 <200 CHOLESTEROL LEVEL eCW1 ([facility]) Cholesterol in HDL [Moles/volume] in Serum or Plasma 41 >40 HDL CHOLESTEROL eCW1 ([facility]) 154 NON-HDL-C eCW1 ([facility]) 4.756 <5 CHOLESTEROL RISK RATIO eCW1 ([facility]) Cholesterol in LDL [Mass/volume] in Serum or Plasma by calculation 102 <100 LDL CHOLESTEROL eCW1 ([facility]) Procedure Social History Code Duration Value Status Description Data Source(s ) Smoking 06/23/2020 12:00:00 AM EST Former Smoker completed Former Smoker eCW1 ([facility]) Smoking 06/23/2020 12:00:00 AM EST Former Smoker completed Former Smoker eCW1 ([facility]) Smoking 05/25/2020 12:00:00 AM EST Former Smoker completed Former Smoker eCW1 ([facility]) Smoking 05/23/2020 12:00:00 AM EST Former Smoker completed Former Smoker eCW1 ([facility]) Smoking 05/23/2020 12:00:00 AM EST Former Smoker completed Former Smoker eCW1 ([facility]) Smoking 05/02/2020 12:00:00 AM EST Former Smoker completed Former Smoker eCW1 ([facility]) Smoking 02/23/2020 12:33:05 PM EDT Ex-smoker (finding) erica ed Ex-smoker (finding) VALERIA (Ajay You MD [facility]) Smoking 12/22/2019 12:00:00 AM EDT Former Smoker completed Former Smoker eCW1 ([facility]) Smoking 12/22/2019 12:00:00 AM EDT Former Smoker completed Former Smoker eCW1 ([facility]) Smoking 12/22/2019 12:00:00 AM EDT Former Smoker completed Former Smoker eCW1 ([facility]) Vital Signs ID Date Data Source UNK Name Value Range Interpretation Code Description Data Source(s) Diastolic blood pressure 90 mm[Hg] 90 mm[Hg] eCW1 ([facility]) Systolic blood pressure 146 mm[Hg] 146 mm[Hg] e CW1 ([facility]) Body temperature 96.8 [degF] 96.8 [degF] eCW1 ( [facility]) Respiratory rate 18 /min 18 /min eCW1 ([facility]) Heart rate 59 /min 59 /min eCW1 ([facility]) Body mass index (BMI) [Ratio] 31.71 kg/m2 31.71 kg/m2 [facility] ([facility]) Body height 70 [in_i] 70 [in_i] eCW1 ([facility]) Body weight 221 [lb_av] 221 [lb_av] eCW1 ([facility]) Body surface area Derived from formula 2.21 m2 2.21 m2 [facility] ([facility]) Body weight 103.874 kg 103.874 kg [facility] ([facility]) [place] body weight 166 [lb_av] 166 [lb_av] MEDEN T ([facility]) Body mass index (BMI) [Ratio] 32.9 kg/m2 32.9 k g/m2 [facility] ([facility]) Body weight 229.00 [lb_av] 229.00 [lb_av] MEDEN T ([facility]) Body height 70 [in_i] 70 [in_i] [facility] ([facility]) 5'10" Diastolic blood pressure 84 mm[Hg] 84 mm[Hg] eCW1 ([facility]) Systolic blood pressure 158 mm[Hg] 158 mm[Hg] e CW1 ([facility]) Body temperature 98.1 [degF] 98.1 [degF] eCW1 ( [facility]) Respiratory rate 18 /min 18 /min eCW1 ([facility]) Heart rate 68 /min 68 /min eCW1 ([facility]) Body mass index (BMI) [Ratio] 31.71 kg/m2 31.71 kg/m2 eCW1 ([facility]) Body height 70 [in_i] 70 [in_i] eCW1 ([facility]) Body weight 221 [lb_av] 221 [lb_av] eCW1 ([facility]) Body mass index (BMI) [Ratio] 33.2 kg/m2 33.2 k g/m2 [facility] ([facility]) Body weight 218.31 [lb_av] 218.31 [lb_av] MED[facility] T ([facility]) Body height 68 [in_i] 68 [in_i] [facility] ([facility]) 5'8" Body temperature 97.5 [degF] 97.5 [degF] [facility] ([facility]) Body weight 102.287 kg 102.287 kg [facility] ([facility]) Body mass index (BMI) [Ratio] 32.4 kg/m2 32.4 k g/m2 [facility] ([facility]) Heart rate 62 /min 62 /min [facility] ([facility]) Diastolic blood pressure 88 mm[Hg] 88 mm[Hg] [facility] ([facility]) Systolic blood pressure 141 mm[Hg] 141 mm[Hg] M EDENT ([facility]) Body weight 225.50 [lb_av] 225.50 [lb_av] MED[facility] T ([facility]) Temp 97.6 Body height 70 [in_i] 70 [in_i] [facility] ([facility]) 5'10" Body mass index (BMI) [Ratio] 33.14 kg/m2 33.14 kg/m2 eCW1 ([facility]) Body height 70 [in_i] 70 [in_i] eCW1 ([facility]) Body weight 231 [lb_av] 231 [lb_av] eCW1 ([facility]) Diastolic blood pressure 74 mm[Hg] 74 mm[Hg] eCW1 ([facility]) Systolic blood pressure 130 mm[Hg] 130 mm[Hg] e CW1 ([facility]) Body temperature 96.6 [degF] 96.6 [degF] eCW1 ( [facility]) Respiratory rate 18 /min 18 /min eCW1 ([facility]) Heart rate 67 /min 67 /min eCW1 ([facility]) Diastolic blood pressure 72 mm[Hg] 72 mm[Hg] eCW1 ([facility]) Systolic blood pressure 130 mm[Hg] 130 mm[Hg] e CW1 ([facility]) Respiratory rate 18 /min 18 /min eCW1 ([facility]) Heart rate 66 /min 66 /min eCW1 ([facility]) Body mass index (BMI) [Ratio] 33.72 kg/m2 33.72 kg/m2 eCW1 ([facility]) Body height 70 [in_us] 70 [in_us] eCW1 ([facility]) Body weight Measured 235 [lb_av] 235 [lb_av] eC W1 ([facility]) Diastolic blood pressure 76 mm[Hg] 76 mm[Hg] eCW1 ([facility]) Systolic blood pressure 122 mm[Hg] 122 mm[Hg] e CW1 ([facility]) Body temperature 97.4 [degF] 97.4 [degF] eCW1 ( [facility]) Respiratory rate 18 /min 18 /min eCW1 ([facility]) Heart rate 72 /min 72 /min eCW1 ([facility]) Body mass index (BMI) [Ratio] 34.00 kg/m2 34.00 kg/m2 W1 ([facility]) Body height 70 [in_us] 70 [in_us] eCW1 ([facility]) Body weight Measured 237.0 [lb_av] 237.0 [lb_av ] eCW1 ([facility]) Body surface area Derived from formula 2.21 m2 2.21 m2 [facility] ([facility] ) Body weight 103.874 kg 103.874 kg [facility] ([facility] ) [place] body weight 166 [lb_av] 166 [lb_av] MED[facility] T ([facility]) Body mass index (BMI) [Ratio] 32.9 kg/m2 32.9 k g/m2 [facility] ([facility]) Body weight 229.00 [lb_av] 229.00 [lb_av] MED[facility] T ([facility]) Body height 70 [in_i] 70 [in_i] [facility] ([facility]) 5'10" Diastolic blood pressure 74 mm[Hg] 74 mm[Hg] eCW1 ([facility]) Systolic blood pressure 128 mm[Hg] 128 mm[Hg] e CW1 ([facility]) Body temperature 97.7 [degF] 97.7 [degF] eCW1 ( [facility]) Respiratory rate 18 /min 18 /min eCW1 ([facility]) Heart rate 72 /min 72 /min eCW1 ([facility]) Body mass index (BMI) [Ratio] 33.86 kg/m2 33.86 kg/m2 eCW1 ([facility]) Body height 70 [in_us] 70 [in_us] eCW1 ([facility]) Body weight Measured 236 [lb_av] 236 [lb_av] eC W1 ([facility]) Body weight 103.874 kg 103.874 kg [facility] ([facility]) Body mass index (BMI) [Ratio] 32.9 kg/m2 32.9 k g/m2 [facility] ([facility]) Body weight 229.00 [lb_av] 229.00 [lb_av] MEDEN T ([facility]) Body height 70 [in_i] 70 [in_i] [facility] ([facility]) 5'10" Body weight 103.421 kg 103.421 kg [facility] ([facility]) Body mass index (BMI) [Ratio] 32.7 kg/m2 32.7 k g/m2 [facility] ([facility]) Body weight 228.00 [lb_av] 228.00 [lb_av] MEDEN T ([facility], ) Body height 70 [in_i] 70 [in_i] [facility] ([facility], ) 5'10" Patient Treatment Plan of Care Planned Activity Planned Date Details Description Data Source (s) Zithromax Z-Robert 250 MG 05/23/2020 12:00:00 AM EST eCW1 ([facility]) Zithromax Z-Robert 250 MG 05/23/2020 12:00:00 AM EST eCW1 ([facility]) besifloxacin 6 MG/ML Ophthalmic Suspension [Besivance] 01/03/2020 12:00:00 AM EDT VALERIA (Ajay You MD [facility]) BromSite 0.075% Ophthalmic Solution 01/03/2020 12:00:00 AM EDT [facility]ER[facility] (Ajay You MD [facility]) Inveltys 1% Ophthalmic Suspension 01/03/2020 12:00:00 AM EDT [facility] (Ajay You MD [facility]) mometasone furoate 1 MG/ML Topical Cream 12/22/2019 12:00:00 AM EDT eCW1 ([facility]) mometasone furoate 1 MG/ML Topical Cream 12/22/2019 12:00:00 AM EDT eCW1 ([facility]) mometasone furoate 1 MG/ML Topical Cream 12/22/2019 12:00:00 AM EDT eCW1 ([facility]) ferrous sulfate 325 MG Delayed Release Oral Tablet 10/21/2019 12 :00:00 AM EDT eCW1 ([facility]) Diclofenac Sodium 0.01 MG/MG Topical Gel [Voltaren] 08/26/19 12:00:00 AM EDT eCW1 ([facility])
[2020-06-28] MEDS ORDERED: FISH1000 PO (08:56)
[2020-06-28] MEDS ORDERED: MIDAZOLAM INJ 2MG/2ML VIAL (J2250 PER 1MG) As Ordered ONE (10:01)
[2020-06-28] MEDS ORDERED: propofoL 200 MG/20 ML VIAL As Ordered ONE (10:02)
[2020-06-28] MEDS ORDERED: fentaNYL 100 MCG/2 ML INJECTION (J3010) As Ordered ONE ×2 (10:02→12:35)
[2020-06-28] MEDS ORDERED: dexameTHASONE 4 MG/ML 1ML VIAL (J1100 PER 1MG) As Ordered ONE (10:02)
[2020-06-28] MEDS ORDERED: LIDOCAINE 2% 100MG/5ML SDV (FOR ANES.) As Ordered ONE ×2 (10:02→12:46)
[2020-06-28] MEDS ORDERED: ACETAMINOPHEN 1000MG 100ML IV BTL (OFIRMEV) (J0131 PER 10MG) As Ordered ONE ×2 (10:02→11:13)
[2020-06-28] MEDS ORDERED: ROCURONIUM BROMIDE 50 MG/5 ML VIAL As Ordered ONE ×2 (10:02→12:21)
[2020-06-28] MEDS ORDERED: ONDANSETRON 4MG/2ML VIAL As Ordered ONE (10:02)
[2020-06-28] MEDS ORDERED: SUGAMMADEX SODIUM 500 MG/5 ML VIAL (BRIDION) As Ordered ONE (10:02)
[2020-06-28] MEDS ORDERED: LIDOCAINE 1% SDV 30ML VIAL As Ordered ONE (10:49)
[2020-06-28] MEDS ORDERED: METHYLENE BLUE 0.5% (5MG/ML) 10 ML AMP (PROVAYBLUE) As Ordered ONE (10:50)
[2020-06-28] MEDS ORDERED: POLYSPORIN TOPICAL OINTMENT 15GM As Ordered ONE (10:50)
[2020-06-28] MEDS ORDERED: LIDOCAINE W/EPINEPHRINE 1% 20ML VIAL As Ordered ONE (10:50)
[2020-06-28] MEDS ORDERED: OXYMETAZOLINE 0.05% NASAL SPRAY (AFRIN) As Ordered ONE (10:50)
[2020-06-28] MEDS ORDERED: PHENYLephrine 500MCG 5ML (100MCG/ML) SYRINGE As Ordered ONE (11:16)
[2020-06-28] MEDS ORDERED: ePHEDrine SULFATE 25 MG/5 ML(5MG/ML) SYRINGE As Ordered ONE (11:16)
[2020-06-28] MEDS ORDERED: NALOXONE INJ 0.4MG/1ML VIAL (J2310 PER 1MG) As Ordered ONE (12:48)
[2020-06-28] MEDS ORDERED: fentaNYL 100 MCG/2 ML INJECTION (J3010) IV PRN (14:00)
[2020-06-28] MEDS ORDERED: LR 1,000 ML IV SCH ×2 (14:00)
[2020-06-28] MEDS ORDERED: oxyCODONE 5MG TAB PO PRN (14:00)
[2020-06-28] MEDS ORDERED: ONDANSETRON 4MG/2ML VIAL IV PRN (14:00)
[2020-06-28 14:10] VITALS: BP 140/90
--- NOTE | 2020-06-29 14:41 | RO ---
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 PROCEDURE PERFORMED: 1. Excision of the right posterior surface of the pinna, 2 x 2 cm in size including margin. 2. Direct suspension microlaryngoscopy with biopsy of the left vocal cord. SURGEON: Milton Browning MD ANESTHESIA: General. CLINICAL PREAMBLE: This 84-year-old man presented to the office complaining of changes in his voice over the past few months. In addition, he has noticed a lesion on the posterior surface of the right pinna. 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 Flexible laryngoscopy revealed mobile vocal cords with a stable long-term, longstanding plaque on the anterior one-third of the left vocal cord. Management options including surgery listed above have been discussed in detail with the patient. He understood and consented to the procedures. OR NARRATION: The patient was identified in preop holding and had the right ear marked. He was then brought to the operating room in stable condition. In supine position on the operating table, the patient received general anesthesia followed by orotracheal intubation without incident. The patient was prepped and draped in the usual fashion for the procedure. The patient was turned to the left side to expose the right ear. The right preauricular area was then prepped and draped in the usual fashion for the procedure. The left pinna was retracted anteriorly to expose the posterior surface of the ear. The margin of the lesion on the posterior surface of the right pinna was then infiltrated with 1% lidocaine with 1:100,000 epinephrine. The incision was made with at least 2-3 mm margins around the lesion down to the level of the perichondrium of the ear cartilage. The entire specimen was then excised en bloc. The anterior margin was marked with two ends of the suture and the superior margin was marked as one end of the suture. Hemostasis was achieved using bipolar electrocautery. The excision site was then dressed using Adaptic coated with bacitracin ointment followed by application of Telfa dressing over the right tear. Attention was turned to performing direct suspension microlaryngoscopy with biopsy of the vocal cord lesion. Bimanual palpation of the oral cavity, oropharynx, posterior and lateral pharyngeal wall showed no evidence of discrete lesion. The upper dentition was then protected using the mouth guard. Dedo-Pilling laryngoscope was introduced into the oral cavity to examine the mucosa of the oral cavity, oropharynx, hypopharynx and the larynx. No gross mucosal ulcerations or mass lesion was noted. The Dedo laryngoscope was then suspended on the Jj stand to allow direct visualization of the vocal cords. A white plaque noted over the anterior one-third of the left cord near the anterior commissure was biopsied. An additional biopsy was also performed over the left anterior one-third of the vocal cord that has somewhat leukoplakia appearance. Hemostasis was achieved by placing cottonoid pledgets soaked in Afrin solution. The subglottic region was showed normal mucosa. The anterior commissure was free of mucosal lesions as well. The left vocal cord biopsy specimens were then sent to pathology for further evaluation. At this time, the sponge and instrument counts were correct. No complications encountered. Estimated blood loss was less than 1 mL. General anesthesia was reversed and the patient was extubated and brought to the recovery room in stable condition. ELICEO
[2020-07-11] MEDS ORDERED: EZET10TA21 PO (08:12)
[2020-07-11] MEDS ORDERED: OMEP10CASR PO (08:12)
== END 2020-06-28 14:51 | disposition home or self-care (01) ==
LOC: M SDC 08:13
PROVIDERS: ATTEND Otolaryngology
DX: D02.0 Carcinoma in situ of larynx (principal); C44.222 Squamous cell carcinoma of skin of right ear and external auricular canal; K44.9 Diaphragmatic hernia without obstruction or gangrene; N40.0 Benign prostatic hyperplasia without lower urinary tract symptoms; Z87.891 Personal history of nicotine dependence; Z88.2 Allergy status to sulfonamides; D64.9 Anemia, unspecified; Z79.899 Other long term (current) drug therapy
CPT/HCPCS: 11642; 31536; 88305; J0131; J1100; J2250; J2310; J2370; J2405; J3010; Q9968

== ENCOUNTER → 2020-07-10 | Outpatient (CLI) | payer MEDICARE ==
[~2020-07-10] MED LIST changes: +EZET10TA21 PO; +FISH1000 PO; -LIDOCAINE 1% MDV 20ML VIAL SQ PRN; -LR 1,000 ML IV ONE; +OMEP10CASR PO; -dexameTHASONE 4 MG/ML 1ML VIAL (J1100 PER 1MG) IV ONE
== END ==
LOC: M LABSMTC 11:53
PROVIDERS: ATTEND Anesthesiology
DX: Z01.812 Encounter for preprocedural laboratory examination (principal); Z20.822 Contact with and (suspected) exposure to COVID-19

== ENCOUNTER 2020-07-13 08:33 | Day surgery (SDC) | payer MEDICARE ==
[~2020-07-13] VITALS: Ht 177.8 cm; Wt 101.2 kg
[~2020-07-13 08:33] MED LIST changes: +LR 1,000 ML IV ONE; +dexameTHASONE 4 MG/ML 1ML VIAL (J1100 PER 1MG) IV ONE
--- OUTSIDE RECORDS SUMMARY | 2020-07-13 08:44 | CCD | Continuity of Care Document ---
Author Author Maxi BROWNING MD Organization Unknown Address [address] [address] Phone [phone] Care Team Providers Care Server Support Technician Name Role Phone Thalia Patino MA cc-A AUTM [phone] Jamie Paris M.D. AUTM [phone] AUTM Unavailable Rehana Gin AUTM [phone] Problems Active Problems Provider Date Chronic maxillary sinusitis Tina L Page DO Onset: 11/12 Allergic rhinitis Tina L Page DO Onset: 11/12/2013 Otolith disease Tina L Page DO Onset: 11/12/2013 Bilateral sensory hearing loss Tina L Page DO Onset: Neck pain Tina Dee DO Onset: 11/12/2013 Difficulty breathing Jessie Haile [...] Available Vital Signs Date Vital Result Comment 07/05/2020 12:58pm Height 70 inches 5'10" Weight 229.00 lb BMI (Body Mass Index) 32.9 kg/m2 [place] Body Weight 166 lb Weight 103.874 kg BSA (Body Surface Area) 2.21 m2 05/24/2020 10:57am Height 70 inches 5'10" Weight 229.00 lb BMI (Body Mass Index) 32.9 kg/m2 [place] Body Weight 166 lb Weight 103.874 kg BSA (Body Surface Area) 2.21 m2 Results Test Acquired Date Facility Test Result H/L Range Note Laboratory test finding 06/28/2020 [facility] [address] [place] [address] [phone] Pathology Request For Service (SEE NOTE) 1 1 FINAL DIAGNOSIS A-Right pinna, posterior surface mass: Invasive squamous cell carcinoma, keratinizing type and moderately differentiated, excised. B-Left vocal cord, biopsy: At least squamous cell carcinoma in situ. (See comment). Comment: H&E sections show superficial fragments of squamous mucosa with carcinoma in situ. No significant submucosa is apparent. 06/29/2020 - 1338 CLINICAL DIAGNOSIS Dysphonia, history of laryngeal cancer, right ear skin lesion 06/28/2020 - 1436 GROSS DIAGNOSIS A - Received in formalin labeled "right pinna posterior surface mass" and consists of a fragment of tissue, 3 x 1.5 x 1.0 cm. The surgeon has oriented the specimen as follows; one suture superior, two sutures anterior. The specimen is inked as follows; superior half black and inferior half red. All is submitted in two. B - Received in formalin labeled "left vocal cord biopsy" and consists of a fragment of tissue, 0.1 x 0.1 x 0.1 cm. All in one. 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
--- OUTSIDE RECORDS SUMMARY | 2020-07-13 08:44 | CCD ---
Author Author [facility] Organization [facility] Address Unknown Phone Unavailable Care Team Providers Care Assistant Librarian Name Role Phone Jamie Paris Unavailable PROBLEMS Type Condition ICD9-CM Code TRQ27-PC Code Onset Dates Condition S tatus SNOMED Code Notes Problem Gastro-esophageal reflux disease without esophagitis K21.9 Active 783335971 Problem Mixed hyperlipidemia E78.2 Active 613574255 Problem Allergic rhinitis, unspecified J30.9 Active 6 0167587 Problem Anemia, unspecified D64.9 Active 459840746 Problem Disorder of carbohydrate metabolism, 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 Active 14368604 Problem Enterocolitis due to Clostridium difficile A04.7 Active 262477637 Problem Other peripheral vertigo, unspecified ear H81.399 Active 88468418 Problem Melanocytic nevi of right upper limb, including shoulder D22.61 Active 523894183 Problem Melanocytic nevi of left upper limb, including shoulder D22.62 Active 737513820 Problem Liver disease, unspecified K76.9 Active 75200 6003 Problem Other cervical disc degeneration, 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 Active 95371904 Problem 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 Active 737195715 Problem Arthritis of right knee M17.11 Active 59777685 48578164 Problem Sacroiliac inflammation M46.1 Active 83986351 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 64232328 Problem Xerosis cutis L85.3 Active 93441860 Problem Arthritis of knee M17.10 Active 710935432 Problem Melanocytic nevi of right lower limb, including hip D22.71 Active 874813014 Problem Melanocytic nevi of left lower limb, including hip D22.72 Active 158632408 Problem Melanocytic nevi of trunk D22.5 Active 220649 002 Problem SK (seborrheic keratosis) L82.1 Active 599598 009 Problem Dermatitis of external ear L30.9 Active 12227 8005 Problem 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 Active 783478142 Problem Iron deficiency anemia, unspecified iron deficiency an emia type D50.9 Active 16215091 Problem 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 Active 663586666 Problem History of Clostridium difficile colitis Z86.19 Active 327166531 Problem Other obstructive and reflux uropathy N13.8 Ac tive 33467470 Problem Melanocytic nevi of face D22.30 Active 0758080 04 Problem Actinic keratoses L57.0 Active 133072730 Problem Lentigines L81.4 Active 462532017 Problem Medicare annual wellness visit, subsequent Z00.00 Active 903747890 ALLERGIES Allergen (clinical drug ingredient) Drug/Non Drug Allergy do cumented on EMR Reaction Allergy Type Onset Date Status naproxen Rash Non Drug Allergy Active pravastatin myalgias Non Drug Allergy Active simvastatin CPK, myalgias Non Drug Allergy Acti ve sulfa severe edema Non Drug Allergy Active ENCOUNTERS from 1935 to 2020 Encounter Location Date Provider Diagnosis [facility] [address] [place] [address] Jun, Erick Paris IMMUNIZATIONS Vaccine Route Administration Date [...] Notes Total Score: 1 Interpretation: Alcohol Education Restorationism: Question Answer Notes Restorationism 21 Tenriism No caodaism beliefs that would impact health care. Sexual [...] Information RESULTS No Results REASON FOR VISIT preo op amend MEDICAL (GENERAL) HISTORY Type Description Date Medical [...] Hospitalization History Pneumonia - Requiring ICU/intubation in [place] 07/2013 Goals Section No Information Health Concerns No Information MEDICAL EQUIPMENT No Information MENTAL STATUS No Information FUNCTIONAL STATUS No Information ASSESSMENTS No Information PLAN OF TREATMENT No Information Insurance Providers Payer Name Payer Address Payer Phone Insured Name Patient Relati onship to Insured Coverage Start Date Coverage End Date [facility] OPTIONS [facility] CLAIM DIV [address] [facility] [phone] CATHY SKY MEDICARE Part A and B [address] [facility] [phone] CATHY SKY
--- OUTSIDE RECORDS SUMMARY | 2020-07-13 08:44 | CCD ---
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 Name Role Phone Jamie Paris Unavailable PROBLEMS Type Condition ICD9-CM Code NTL12-EN Code Onset Dates Condition S tatus SNOMED Code Notes Problem Gastro-esophageal reflux disease without esophagitis K21.9 Active 156642744 Problem Mixed hyperlipidemia E78.2 Active 655034721 Problem Allergic rhinitis, unspecified J30.9 Active 6 9433175 Problem Anemia, unspecified D64.9 Active 195814117 Problem Disorder of carbohydrate metabolism, 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 Active 57528093 Problem Enterocolitis due to Clostridium difficile A04.7 Active 360534365 Problem Other peripheral vertigo, unspecified ear H81.399 Active 77291289 Problem Melanocytic nevi of right upper limb, including shoulder D22.61 Active 002602434 Problem Melanocytic nevi of left upper limb, including shoulder D22.62 Active 798098429 Problem Liver disease, unspecified K76.9 Active 64786 6003 Problem Other cervical disc degeneration, 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 Active 10878365 Problem 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 Active 354957104 Problem Arthritis of right knee M17.11 Active 31187246 32231228 Problem Sacroiliac inflammation M46.1 Active 25636432 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 94975018 Problem Xerosis cutis L85.3 Active 29477556 Problem Arthritis of knee M17.10 Active 810246306 Problem Melanocytic nevi of right lower limb, including hip D22.71 Active 031262597 Problem Melanocytic nevi of left lower limb, including hip D22.72 Active 550653845 Problem Melanocytic nevi of trunk D22.5 Active 096354 002 Problem SK (seborrheic keratosis) L82.1 Active 236542 009 Problem Dermatitis of external ear L30.9 Active 86928 8005 Problem 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 Active 858361839 Problem Iron deficiency anemia, unspecified iron deficiency an emia type D50.9 Active 27764409 Problem 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 Active 527465332 Problem History of Clostridium difficile colitis Z86.19 Active 329804707 Problem Other obstructive and reflux uropathy N13.8 Ac tive 45578157 Problem Melanocytic nevi of face D22.30 Active 7546224 04 Problem Actinic keratoses L57.0 Active 780101882 Problem Lentigines L81.4 Active 208532327 Problem Medicare annual wellness visit, subsequent Z00.00 Active 363087317 ALLERGIES Allergen (clinical drug ingredient) Drug/Non Drug Allergy do cumented on EMR Reaction Allergy Type Onset Date Status naproxen Rash Non Drug Allergy Active pravastatin myalgias Non Drug Allergy Active simvastatin CPK, myalgias Non Drug Allergy Acti ve sulfa severe edema Non Drug Allergy Active ENCOUNTERS from 1935 to 2020-06-30 Encounter Location Date Provider Diagnosis [facility] [address] [place] [address] 10 May, 2020 Erick Paris Medicare annual wellness visit, subsequent Z00.00 ; Mixed hyperlipidemia E78.2 ; Disorder of carbohydrate metabolism, 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 Sexual [...] May, BMI 31.71 kg/m2 May, Heart Rate 65 /min May, Respiratory Rate 18 /min May, Temperature 97.0 degrees Fahrenheit May, Oximetry 95 10 Dec, 2020 Blood pressure systolic 134 mm Hg May, Blood pressure diastolic 72 mm Hg May, MEDICATIONS Medication SIG (Take, [...] Information RESULTS No Results REASON FOR VISIT F/U after "heart scope" Apr 2020 MEDICAL (GENERAL) HISTORY Type Description Date Medical [...] Hospitalization History Pneumonia - Requiring ICU/intubation in [place] 07/2013 Goals Section No Information Health Concerns No Information MEDICAL EQUIPMENT No Information MENTAL STATUS No Information FUNCTIONAL STATUS No Information ASSESSMENTS Encounter Date Diagnosis Assessment Notes Treatment Notes Treatm ent Clinical Notes May, Medicare annual wellness visit, subsequent (ICD- 10 - Z00.00) age appropriate anticipatory guidance given, per USPSTF recommendations; immunizations up to date. discussed plans for implementing improvement in identified areas May, Mixed hyperlipidemia (ICD-10 - E78.2) advised he take his Zetia daily (now only takes qOD) May, Disorder of carbohydrate metabolism, uns pecified (ICD-10 - E74.9) May, Anemia, unspecified (ICD-10 - D64.9) May, Iron deficiency anemia, unsp ecified iron deficiency anemia type (ICD-10 - D50.9) May, Squamous cell carcinoma in s itu of true vocal cord (ICD-10 - D02.0) follows ENT PLAN OF TREATMENT Treatment Notes Assessment Notes Clinical Notes Medicare annual wellness visit, subsequent age appropriate anticipatory guidance given, per USPSTF recommendations; immunizations up to date. 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 follows ENT Future Test Test Name Order Date LIPID PANEL (CARDIAC RISK) [id number] Comprehensive Metabolic Profile (CMP) [id number] CBC - Complete Blood Count [id number] FERRITIN [id number] TOTAL IRON BINDING CAPACIT [id number] Next Appt Details 4 Months Reason: Insurance Providers Payer Name Payer Address Payer Phone Insured Name Patient Relati onship to Insured Coverage Start Date Coverage End Date MEDICARE Part A and B [address] [facility] [phone] C[facility]Y [facility] HE[facility] CARE OPTIONS [facility] CLAIM DIV [address] [facility] [phone] CATHY SKY
--- OUTSIDE RECORDS SUMMARY | 2020-07-13 08:45 | CCD ---
Author Author [facility] Organization [facility] Address Unknown Phone Unavailable Care Team Providers Care Senior Sales Engineer Name Role Phone Emilia Burns MD Unavailable [...] Unavailable GrantEmilia marcus MD Unavailable Unavailable GrantEmilia MD Unavailable Unavailable Grant S Derrek ENCISO Unavailable Unavailable Grant S Derrek ENCISO Unavailable Unavailable Grant S Derrek ENCISO Unavailable Unavailable Grant S Derrek ENCISO Unavailable Unavailable Grant S Derrek ENCISO Unavailable Unavailable Emilia Burns MD Unavailable Unavailable Emilia Burns MD Unavailable Unavailable Emilia Burns MD Unavailable Unavailable Emilia Burns MD Unavailable Unavailable Emilia Burns MD Unavailable Unavailable Emilia Burns MD Unavailable Unavailable Emilia Burns MD Unavailable Unavailable Emilia Burns MD Unavailable Unavailable Emilia uBrns MD Unavailable Unavailable Emilia Burns MD Unavailable Unavailable Fish, [facility], PA-C Unavailable Unavailabl e Fish, [facility], PA-C Unavailable Unavailabl e Fish, [facility], PA-C Unavailable Unavailabl e Fish, [facility], PA-C Unavailable Unavailabl e Fish, [facility], PA-C Unavailable Unavailabl e Fish, [facility], PA-C Unavailable Unavailabl e Fish, [facility], PA-C Unavailable Unavailabl e Fish, [facility], PA-C Unavailable Unavailabl e Fish, [facility], PA-C Unavailable Unavailabl e Fish, [facility], PA-C Unavailable Unavailabl e Fish, [facility], PA-C Unavailable Unavailabl e Fish, [facility], PA-C Unavailable Unavailabl e Fish, [facility], PA-C Unavailable Unavailabl e Fish, [facility], PA-C Unavailable Unavailabl e Fish, [facility], PA-C Unavailable Unavailabl e Fish, [facility], PA-C Unavailable Unavailabl e Fish, [facility], PA-C Unavailable Unavailabl e Fish, [facility], PA-C Unavailable Unavailabl e Fish, [facility], PA-C Unavailable Unavailabl e Fish, [facility], PA-C Unavailable Unavailabl e Fish, [facility], PA-C Unavailable Unavailabl e Fish, [facility], PA-C Unavailable Unavailabl e Fish, [facility], PA-C Unavailable Unavailabl e Fish, [facility], PA-C Unavailable Unavailabl e Fish, [facility], PA-C Unavailable Unavailabl e Fish, [facility], PA-C Unavailable Unavailabl e Fish, [facility], PA-C Unavailable Unavailabl e Fish, [facility], PA-C Unavailable Unavailabl e Fish, [facility], PA-C Unavailable Unavailabl e Fish, [facility], PA-C Unavailable Unavailabl e Fish, [facility], PA-C Unavailable Unavailabl e Fish, [facility], PA-C Unavailable Unavailabl e Fish, [facility], PA-C Unavailable Unavailabl e Pato BROWNING MD Unavailable Unavailable Pato BROWNING MD Unavailable Unavailable Pato BROWNING MD Unavailable Unavailable Pato BROWNING MD Unavailable Unavailable Pato BROWNING MD Unavailable Unavailable Pato BROWNING MD Unavailable Unavailable Pato BROWNING MD Unavailable Unavailable Pato BROWNING MD Unavailable Unavailable Pato BROWNING MD Unavailable Unavailable Pato BROWNING MD Unavailable Unavailable Pato BROWNING MD Unavailable Unavailable Pato BROWNING MD Unavailable Unavailable Pato BROWNING MD Unavailable Unavailable Pato BROWNING MD Unavailable Unavailable Pato BROWNING MD Unavailable Unavailable Pato BROWNING MD Unavailable Unavailable Pato BROWNING MD Unavailable Unavailable Pato BROWNING MD Unavailable Unavailable Pato BROWNING MD Unavailable Unavailable Pato BROWNING MD Unavailable Unavailable Pato BROWNING MD Unavailable Unavailable Pato BROWNING MD Unavailable Unavailable Pato BROWNING MD Unavailable Unavailable Pato BROWNING MD Unavailable Unavailable Pato BROWNING MD Unavailable Unavailable Pato BROWNING MD Unavailable Unavailable Pato BROWNING MD Unavailable Unavailable NICO, Pato ADDISON MD Unavailable Unavailable Pato BROWNING MD Unavailable Unavailable Pato BROWNING MD Unavailable Unavailable Pato BROWNING MD Unavailable Unavailable NICO, Pato ADDISON MD Unavailable Unavailable Pato BROWNING MD Unavailable Unavailable Pato BROWNING MD Unavailable Unavailable Pato BROWNING MD Unavailable Unavailable Jaguar, Reginaelo W [employer] RELAY ADJUSTER-C Unavailable Unavailabl e Jaguar, Regina W [employer] RELAY ADJUSTER-C Unavailable Unavailabl e Jaguar, Regina W [employer] RELAY ADJUSTER-C Unavailable Unavailabl e Jaguar, Regina W [employer] RELAY ADJUSTER-C Unavailable Unavailabl e Jaguar, Regina W [employer] RELAY ADJUSTER-C Unavailable Unavailabl e Jaguar, Regina W [employer] RELAY ADJUSTER-C Unavailable Unavailabl e Jaguar, Regina W [employer] RELAY ADJUSTER-C Unavailable Unavailabl e Jaguar, Regina W [employer] RELAY ADJUSTER-C Unavailable Unavailabl e Jaguar, Regina W [employer] RELAY ADJUSTER-C Unavailable Unavailabl e Jaguar, Regina W [employer] RELAY ADJUSTER-C Unavailable Unavailabl e Jaguar, Regina W [employer] RELAY ADJUSTER-C Unavailable Unavailabl e Jaguar, Regina W [employer] RELAY ADJUSTER-C Unavailable Unavailabl e Jaguar, Regina W [employer] RELAY ADJUSTER-C Unavailable Unavailabl e Jaguar, Regina W [employer] RELAY ADJUSTER-C Unavailable Unavailabl e Jaguar, Regina W [employer] RELAY ADJUSTER-C Unavailable Unavailabl e Jaguar, Regina W [employer] RELAY ADJUSTER-C Unavailable Unavailabl e Jaguar, Regina W [employer] RELAY ADJUSTER-C Unavailable Unavailabl e Jaguar, Regina W [employer] RELAY ADJUSTER-C Unavailable Unavailabl e Jaguar, Regina W [employer] RELAY ADJUSTER-C Unavailable Unavailabl e Jaguar, Regina W [employer] RELAY ADJUSTER-C Unavailable Unavailabl e Jaguar, Regina W [employer] RELAY ADJUSTER-C Unavailable Unavailabl e Jaguar, Regina W [employer] RELAY ADJUSTER-C Unavailable Unavailabl e Jaguar, Reginaelo W [employer] RELAY ADJUSTER-C Unavailable Unavailabl e Jaguar, Reginaelo W [employer] RELAY ADJUSTER-C Unavailable Unavailabl e Jaguar, Reginah W [employer] RELAY ADJUSTER-C Unavailable Unavailabl e Jaguar, Reginah W [employer] RELAY ADJUSTER-C Unavailable Unavailabl e Jaguar, Reginah W [employer] RELAY ADJUSTER-C Unavailable Unavailabl e Jaguar, Reginah W [employer] RELAY ADJUSTER-C Unavailable Unavailabl e Jaguar, Reginah W [employer] RELAY ADJUSTER-C Unavailable Unavailabl e Jaguar, Reginah W [employer] RELAY ADJUSTER-C Unavailable Unavailabl e Jaguar, Reginaelo W [employer] RELAY ADJUSTER-C Unavailable Unavailabl e Jaguar, Doeinaelo W [employer] RELAY ADJUSTER-C Unavailable Unavailabl e Clem BURNSEW DO Unavailable [phone] Clem BURNSEW DO Unavailable [phone] Clem BURNS MOESS DO Unavailable [phone] Clem BURNS MOSES DO Unavailable [phone] Clem BURNSEW DO Unavailable [phone] Clem BURNSEW DO Unavailable [phone] Clem BURNSEW DO Unavailable [phone] Clem BURNSEW DO Unavailable [phone] Clem BURNS MOSES DO Unavailable [phone] Clem BURNS MOSES DO Unavailable [phone] Clem BURNS MOSES DO Unavailable [phone] Clem BURNSEW DO Unavailable [phone] Clem BURNS MOSES DO Unavailable [phone] Clem BURNSEW DO Unavailable [phone] Clem BURNS MOSES DO Unavailable [phone] Clem BURNS MOSES DO Unavailable [phone] Clem BURNS DO Unavailable [phone] Clem BURNS DO Unavailable [phone] Clem BURNS DO Unavailable [phone] GRANT, Clem LOPES DO Unavailable [phone] Clem BURNS DO Unavailable [phone] CHANDU, ALLI ENCISO Unavailable Unavailable MARKWITH, ALLI ENCISO Unavailable Unavailable MARKWITH, ALLI ENCISO Unavailable Unavailable MARKWITH, ALLI ENCISO Unavailable Unavailable MARKWITH, ALLI ENCISO Unavailable Unavailable MARKWITH, ALLI ENCISO Unavailable Unavailable MARKWITH, ALLI ENCISO Unavailable Unavailable MARKWITH, ALLI ENCISO Unavailable Unavailable MARKWITH, ALLI ENCISO Unavailable Unavailable MARKWITH, ALLI ENCISO Unavailable Unavailable MARKWITH, ALLI ENCISO Unavailable Unavailable MARKWITH, ALLI ENCISO Unavailable Unavailable MARKWITH, ALLI ENCISO Unavailable Unavailable MARKWITH, ALLI ENCISO Unavailable Unavailable MARKWITH, ALLI ENCISO Unavailable Unavailable MARKWITH, ALLI ENCISO Unavailable Unavailable MARKWITH, ALLI ENCISO Unavailable Unavailable MARKWITH, ALLI ENCISO Unavailable Unavailable MARKWITH, ALLI ENCISO Unavailable Unavailable MARKWITH, ALLI ENCISO Unavailable Unavailable MARKWITH, ALLI ENCISO Unavailable Unavailable MARKWITH, ALLI ENCISO Unavailable Unavailable MARKWITH, ALLI ENCISO Unavailable Unavailable MARKWITH, ALLI ENCISO Unavailable Unavailable MARKWITH, ALLI ENCISO Unavailable Unavailable MARKWITH, ALLI ENCISO Unavailable Unavailable MARKWITH, ALLI ENCISO Unavailable Unavailable MARKWITH, ALLI ENCISO Unavailable Unavailable MARKWITH, ALLI ENCISO Unavailable Unavailable MARKWITH, ALLI ENCISO Unavailable Unavailable MARKWITH, ALLI ENCISO Unavailable Unavailable MARKWITH, ALLI ENCISO Unavailable Unavailable MARKWITH, ALLI ENCISO Unavailable Unavailable Re-disclosure Warning The records that [...] is protected by Article 27-F of the [facility] Public Health law. If you continue you may have access to information: Regarding HIV / AIDS; Provided by facilities licensed or operated by the [facility] Office of Mental Health; or Provided by the [facility] Office for People With Developmental Disabilities. If such information is present, then the following [facility] mandated warning applies: This information has been [...] law may result in a fine or fdc sentence or both. A general authorization for the release of medical or other information is NOT sufficient authorization for further disc losure. Allergies and Adverse Reactions Type Description Substance Reaction Status Data Source(s ) Drug allergy Sulfa (Sulfonamide Antibiotics) Sulfa (Sulfonami de Antibiotics) "BLEW UP LIKE A BALLOON" [facility] Drug allergy Sulfa Antibiotics Sulfa Antibiotics Active [facility] (Ajay You MD [facility]) naproxen naproxen naproxen Rash Active eCW1 ([facility]) simvastatin simvastatin simvastatin CPK, myalgias Active eCW1 ([facility]) pravastatin pravastatin Pravastatin Sodium 40 MG Oral Tablet myalgias Active eCW1 ([facility]) sulfa sulfa sulfa severe edema Active eCW1 ([facility]) PT DENIES ANY ALLERGIES BESIDES SULFA PT DENIES ANY ALLERGIE S BESIDES SULFA PT DENIES ANY ALLERGIES BESIDES SULFA Unknown Active eCW1 ([facility]) simvastatin simvastatin simvastatin CPK, myalgias Active eCW1 ([facility]) pravastatin pravastatin Pravastatin Sodium 40 MG Oral Tablet myalgias Active eCW1 ([facility]) sulfa sulfa sulfa severe edema Active eCW1 ([facility]) naproxen naproxen naproxen Rash Active eCW1 ([facility]) naproxen naproxen naproxen Rash Active eCW1 ([facility]) PT DENIES ANY ALLERGIES BESIDES SULFA PT DENIES ANY ALLERGIE S BESIDES SULFA PT DENIES ANY ALLERGIES BESIDES SULFA Unknown Active eCW1 ([facility]) pravastatin pravastatin Pravastatin Sodium 40 MG Oral Tablet myalgias Active eCW1 ([facility]) simvastatin simvastatin simvastatin CPK, myalgias Active eCW1 ([facility]) sulfa sulfa sulfa severe edema Active eCW1 ([facility]) Family History Family Member Name Family Member Gender Family Member Status Date o f Status Description Data Source(s) Unknown Unknown Problem MEDENT ([facility]) Unknown Male Problem MEDENT ([facility]) Unknown Female Problem MEDENT ([facility]) Unknown Female Encounters Encounter Providers Location Date Indications Data Source(s ) Unknown [address] [facility] [address] 07/07/2020 12:00:00 AM EST eCW1 ([facility]) Unknown [address] [facility] [address] 06/26/2020 12:00:00 AM EST eCW1 ([facility]) Office Visit, Est Pt., Level 3 [address] [place] [address] 06/23/2020 12:00:00 AM EST eCW1 ([facility]) Outpatient [address] [facility] [address] 05/25/2020 12:00:00 AM EST eCW1 ([facility]) Outpatient Attender: AZAEL Browning/Daniela/Migue/Estevan jennings 05/24/2020 09:30:00 AM EST MEDENT ([facility]) Outpatient [address] [facility] [address] 05/23/2020 12:00:00 AM EST eCW1 ([facility]) Unknown [address] [facility] [address] 05/23/2020 12:00:00 AM EST eCW1 ([facility]) [place] [address] [facility] [address] 05/23/2020 12:00:00 AM EST eCW1 ([facility]) Office Visit Attender: Thalia FAY PA-C Physical Therapy 05/04/2020 01:30:00 PM EST MEDENT ([facility]) [place] [address] [facility] [address] 05/02/2020 12:00:00 AM EST eCW1 ([facility]) Office Visit Attender: Thalia FAY PA-C Physical Therapy 04/26/2020 02:15:00 PM EST MEDENT ([facility]) Office Visit Attender: ALLI SCHOFIELD MD Physical Therapy 08:30:00 AM EST MEDENT ([facility]) Unknown [address] [facility] [address] 04/12/2020 12:00:00 AM EDT eCW1 ([facility]) Outpatient [address] [facility] [place] [address] 04/05/2020 12:00:00 AM EDT eCW1 ([facility]) Outpatient Attender: ALLI SCHOFIELD MD Physical Therapy 11:00:00 AM EDT MEDENT ([facility]) Outpatient<td ID="encounterTypeDescripti onID0">3 - 4 WK Post CAT SX</td><td>Moses Burns DO</td><td>Ajay Leyva MD [facility]</td><td>02/23/2020</td><td>11:46AM</td><td>12:28PM</td><td><content ID="encounterDiagnosisID0-0">Pseudophakia</content></td> Attender: MOSES Box MD [facility] 02/23/2020 11:46:00 AM EDT - 02/23/2020 12:28:00 PM EDT Pseudophakia VALERIA (Ajay You MD [facility]) Pseudophakia Outpatient Attender: ALLI SCHOFIELD MD Physical Therapy 01:45:00 PM [facility] Outpatient<td ID="encounterTypeDescripti onID1">1 Week Post OP</td><td>Moses Burns DO</td><td>Ajay Leyva MD [facility]</td><td>01/28/2020</td><td>8:53AM</td><td>9:39AM</td><td><content ID="encounterDiagnosisID1-0">Pseudophakic - Right Eye</content></td> Attender: MOSES Box MD [facility] 01/28/2020 08:53:00 AM EDT - 01/28/2020 09:39:00 AM EDT Pseudophakic - Right Eye [facility]ERIA (Ajay ramon MD [facility]) Pseudophakic - Right Eye Outpatient Attender: MOSES BURNS DO 0 01/24/2020 12:14:00 PM EDT - 01/24/2020 02:05:00 PM EDT [facility] Patient discharged. Outpatient<td ID="encounterTypeDescripti onID2">SAME DAY POST OP</td><td>Moses Burns DO</td><td>[facility]</td><td>01/24/2020</td><td>6:21AM</td><td>6:24AM</td><td></td> Attender: MOSES BURNS DO [facility] 01/24/2020 06:21:00 AM EDT - 01/24/2020 06:24:00 AM EDT [facility] (Ajay ramon MD [facility]) Outpatient<td ID="encounterTypeDescripti onID3">Extracapsular cataract removal w/IOL implant</td><td>Moses Burns DO</td><td>[facility]</td><td>01/24/2020</td><td>6:20AM</td><td>6:25AM</td><td></td> Attender: MOSES BURNS DO [facility] 01/24/2020 06:20:00 AM EDT - 01/24/2020 06:25:00 AM EDT [facility] (Ajay ramon MD [facility]) Outpatient Attender: Genesis Jaguar CEDE[facility]OP-C EMERGENCY ROOM-LAB REF 01/19/2020 08:39:00 AM EDT - 01/19/2020 08:39:00 AM EDT 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 Outpatient<td ID="encounterTypeDescripti onID5">SAME DAY POST OP</td><td>Moses Burns DO</td><td>[facility]</td><td>01/10/2020</td><td>7:38AM</td><td>7:38AM</td><td></td> Attender: MOSES BURNS DO [facility] 01/10/2020 07:38:00 AM EDT - 01/10/2020 07:38:00 AM EDT [facility] (Ajay ramon MD [facility]) Outpatient<td ID="encounterTypeDescripti onID6">Extracapsular cataract removal w/IOL implant</td><td>Moses Burns DO</td><td>[facility]</td><td>01/10/2020</td><td>6:54AM</td><td>6:54AM</td><td></td> Attender: MOSES BURNS DO [facility] 01/10/2020 06:54:00 AM EDT - 01/10/2020 06:54:00 AM EDT [facility] (Ajay ramon MD [facility]) Outpatient Attender: Genesis SAVAGE EMERGENCY ROOM-LAB REF 01/05/2020 07:58:00 AM EDT - 01/05/2020 07:58:00 AM EDT [facility] Outpatient<td ID="encounterTypeDescripti onID7">1 WK PREOP FOR SURGERY</td><td>Moses Burns DO</td><td>Ajay Leyva MD [facility]</td><td>01/03/2020</td><td>9:39AM</td><td>10:21AM</td><td><content ID="encounterDiagnosisID7-0">Cataract Senile Nuclear</content></td> Attender: MOSES Box MD [facility] 01/03/2020 09:39:00 AM EDT - 01/03/2020 10:21:00 AM EDT Cataract Senile Nuclear [facility]ERIA (Ajay ramon MD [facility]) Cataract Senile Nuclear Outpatient<td ID="encounterTypeDescripti onID8">NEW PATIENT WITH REFERRAL</td><td>Moses Burns DO</td><td>Ajay Leyva MD [facility]</td><td>12/31/2019</td><td>9:25AM</td><td>10:09AM</td><td><content ID="encounterDiagnosisID8-0">Dry Eye Syndrome</content>, <content ID="encounterDiagnosisID8-1">Cataract Senile Nuclear</content>, <content ID="encounterDiagnosisID8-2">Vitreous Disorders Degeneration</content></td> Attender: MOSES Box MD [facility] 12/31/2019 09:25:00 AM EDT - 12/31/2019 10:09:00 AM EDT Vitreous Disorders DegenerationCataract Senile NuclearDry Eye Syndrome VALERIA (Ajay You MD [facility]) 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 [facility] Dermatology [address] [place] [address] 12/22/2019 12:00:00 AM EDT eCW1 ([facility]) Outpatient Attender: Derrek Burns MD Main Office 12/09/2019 10:45:00 AM EDT MEDENT ([facility]) Outpatient [address] [place] [phone] 11/18/2019 12:00:00 AM EDT [facility]1 [facility]) Outpatient 10/31/2019 07:19:00 AM EDT [facility] [address] [address] 10/21/2019 12:00:00 AM EDT eCW1 ([facility]) [address] [address] 10/20/2019 12:00:00 AM EDT eCW1 ([facility]) [address] [address] 10/20/2019 12:00:00 AM EDT eCW1 ([facility]) Outpatient 09/16/2019 05:25:00 AM EDT [facility] Dermatology Center [address] [place] [address] 09/01/2019 12:00:00 AM EDT eCW1 ([facility]) [address] [address] 08/27/2019 12:00:00 AM EDT eCW1 ([facility]) [address] [address] 08/26/2019 12:00:00 AM EDT eCW1 ([facility]) [facility] Marty Hearn [address] [place] [address] 08/23/2019 12:00:00 AM EDT eCW1 ([facility]) Outpatient 08/12/2019 08:01:00 PM EST [facility] Marty Hearn [address] [place] [address] 06/14/2019 12:00:00 AM EST eCW1 ([facility]) Immunizations Vaccine Date Status Description Data Source(s) Tdap 05/23/2020 12:07:00 PM EST completed e CW1 ([facility]) Tdap 05/23/2020 12:07:00 PM EST completed e CW1 ([facility]) Tdap 05/23/2020 12:07:00 PM EST completed e CW1 ([facility]) Tdap 05/23/2020 12:07:00 PM EST completed e CW1 ([facility]) Tdap 05/23/2020 12:07:00 PM EST completed e CW1 ([facility]) Tdap 05/23/2020 12:07:00 PM EST completed e CW1 ([facility]) Tdap 05/23/2020 12:07:00 PM EST completed e CW1 ([facility]) VARICELLA-ZOSTER VIRUS GLYCOPROTEIN E,REC/AS01B ADJUVA NT/PF 05/02/2020 12:00:00 AM EST completed [facility] influenza, recombinant, quadrIvalent,injectable, prese rvative free 04/05/2020 11:45:00 AM EDT completed eCW1 ([facility]) influenza, recombinant, quadrIvalent,injectable, prese rvative free 04/05/2020 11:45:00 AM EDT completed eCW1 ([facility]) influenza, recombinant, quadrIvalent,injectable, prese rvative free 04/05/2020 11:45:00 AM EDT completed eCW1 ([facility]) influenza, recombinant, quadrIvalent,injectable, prese rvative free 04/05/2020 11:45:00 AM EDT completed eCW1 ([facility]) influenza, recombinant, quadrIvalent,injectable, prese rvative free 04/05/2020 11:45:00 AM EDT completed eCW1 ([facility]) influenza, recombinant, quadrIvalent,injectable, prese rvative free 04/05/2020 11:45:00 AM EDT completed eCW1 ([facility]) influenza, recombinant, quadrIvalent,injectable, prese rvative free 04/05/2020 11:45:00 AM EDT completed eCW1 ([facility]) influenza, recombinant, quadrIvalent,injectable, prese rvative free 04/05/2020 11:45:00 AM EDT completed eCW1 ([facility]) influenza, recombinant, quadrIvalent,injectable, prese rvative free 04/05/2020 11:45:00 AM EDT completed eCW1 ([facility]) influenza, recombinant, quadrIvalent,injectable, prese rvative free 04/05/2020 11:45:00 AM EDT completed eCW1 ([facility]) Medications Medication Brand Name Start Date Product [...] active Zithromax Z-Robert 250 MG eC W1 ([facility]) Zithromax Z-Robert 250 MG Zithromax Z-Robert 250 MG 05/23/2020 12:00:[address] active Zithromax Z-Robert 250 MG eC W1 ([facility]) Zithromax Z-Robert 250 MG Zithromax Z-Robert 250 MG 05/23/2020 12:00:[address] active Zithromax Z-Robert 250 MG eC W1 ([facility]) 2 ML Sodium Hyaluronate 10 MG/ML Prefilled Syringe [Euflexxa ] Euflexxa 04/17/2020 12:00:00 AM EST active MEDENT ([facility]) 1 % 01/03/2020 12:00:00 AM [...] THE RIGHT EYE SOLD: 01/03/2020 [facility] besifloxacin 6 MG/ML Ophthalmic Suspensi on [Besivance] Besivance 0.6% Ophthalmic Suspension Besivance 0.6% Ophthalmic Suspension 01/03/2020 12:00:00 AM EDT aborted besifloxacin 6 MG/ML Ophthalmic Suspension [Besivance] [facility]ERIA (Ajay You MD [facility]) 0.6 % 01/03/2020 12:00:00 AM EDT drops,suspension [...] DAY IN THE RIGHT EYE SOLD: 01/21/2020 [facility] 0.075 % 01/03/2020 12:00:00 AM EDT drops 5 THREE DAYS PRIOR TO SURGERY, START 1 DROP TWO TIMES A DAY IN THE RIGHT EYE THREE DAYS PRIOR TO SURGERY, START 1 DROP TWO TIMES A DAY IN THE RIGHT EYE SOLD: 01/21/2020 [facility] Inveltys 1% Ophthalmic Suspension Inveltys 1% Ophthalmic Destini pension 01/03/2020 12:00:00 AM EDT aborted loteprednol etabonate 10 MG/ML Ophthalmic Suspension [Inveltys] [facility]ERIA (Ajay You MD [facility]) 0.6 % 01/03/2020 12:00:00 AM EDT drops,suspension 5 THREE DAYS PRIOR TO SURGERY, START 1 DROP THREE TIMES A DAY IN THE RIGHT EYE THREE DAYS PRIOR TO SURGERY, START 1 DROP THREE TIMES A DAY IN THE RIGHT EYE SOLD: 01/03/2020 [facility] BromSite 0.075% Ophthalmic Solution BromSite 0.075% Ophthalm ic Solution 01/03/2020 12:00:00 AM EDT aborted bromfenac 0.75 MG/ML Ophthalmic Solution [Bromsite] [facility]ERIA (Ajay You MD [facility]) Loratadine 10 MG Oral Tablet [Claritin] Claritin 10 MG Oral Tablet Claritin 10 MG Oral Tablet 12/31/2019 12:00:00 AM EDT 1 act john loratadine 10 MG Oral Tablet [Claritin] [facility]IA (Ajya You MD [facility]) Fluticasone Propionate 50 MCG/ACT Nasal Suspension Flu ticasone Propionate 50 MCG/ACT Nasal Suspension 12/31/2019 12:00:00 AM EDT 1 active fluticasone propionate 0.05 MG/ACTUAT Metered Dose Nasal [place] VALERIA (Ajay You MD [facility]) Iron 325 (65 Fe) MG Oral Tablet Iron 325 (65 Fe) MG Oral Tab let 12/31/2019 12:00:00 AM EDT 1 active Iron G TYSON (Ajay You MD [facility]) Vitamin E 400 UNT Oral Tablet Vitamin E 400 UNIT Oral Tablet Vitamin E 400 UNIT Oral Tablet 12/31/2019 12:00:00 AM EDT 1 active vitamin E 180 MG Oral Tablet VALERIA (Ajay You MD [facility]) Aspirin Adult Low Dose 81 MG Oral Tablet Delayed Relea se Aspirin Adult Low Dose 81 MG Oral Tablet Delayed Release 12/31/2019 12:00:00 AM EDT 1 active Aspirin Adult Low Dose [facility] (Ajay You MD [facility]) Ezetimibe 10 MG Oral Tablet Ezetimibe 10 MG Oral Tablet 12/14 12:00:00 AM EDT 1 active Ezetimibe SALINAS Levine (Ajay You MD [facility]) Omeprazole 20 MG Delayed Release Oral Ta blet Omeprazole 20 MG Oral Tablet Delayed Release Omeprazole 20 MG Oral Tablet Delayed Release 07/17/202 0 12:00:00 AM EDT 1 active omeprazole 20 MG Delayed Release Oral Tablet [facility]IA (Ajay You MD [facility]) Multivitamin Oral Tablet Multivitamin Oral Tablet 12/31/2019 12:00: 00 AM EDT 1 active Multivitamin [facility]IA (Romeo You MD [facility]) Lutein 20 MG Oral Tablet Lutein 20 MG Oral Tablet 12/31/2019 12:00: 00 AM EDT 1 active lutein 20 MG Oral Tablet [facility] (Ajay You MD [facility]) 0.1 % 12/22/2019 12:00:00 AM EDT cream 15 APPLY TO THE EAR IF ITCHY WITH SCALE ONCE DAILY APPLY TO THE EAR IF ITCHY WITH SCALE ONCE DAILY SOLD: 12/22/2019 [facility] mometasone furoate 1 MG/ML Topical Cream Mometasone Fu roate 0.1 % Mometasone Furoate 0.1 % 12/22/2019 12:00:00 AM EDT 1.0 {application} active Mometasone Furoate 0.1 % eCW1 ([facility]) mometasone furoate 1 MG/ML Topical Cream Mometasone Fu roate 0.1 % Mometasone Furoate 0.1 % 12/22/2019 12:00:00 AM EDT 1.0 {application} active Mometasone Furoate 0.1 % eCW1 ([facility]) mometasone furoate 1 MG/ML Topical Cream Mometasone Fu roate 0.1 % Mometasone Furoate 0.1 % 12/22/2019 12:00:00 AM EDT 1.0 {application} active Mometasone Furoate 0.1 % eCW1 ([facility]) mometasone furoate 1 MG/ML Topical Cream Mometasone Fu roate 0.1 % Mometasone Furoate 0.1 % 12/22/2019 12:00:00 AM EDT 1.0 {application} suspended Mometasone Furoate 0.1 % eCW1 ([facility]) mometasone furoate 1 MG/ML Topical Cream Mometasone Fu roate 0.1 % Mometasone Furoate 0.1 % 12/22/2019 12:00:00 AM EDT 1.0 {application} suspended Mometasone Furoate 0.1 % eCW1 ([facility]) mometasone furoate 1 MG/ML Topical Cream Mometasone Fu roate 0.1 % Mometasone Furoate 0.1 % 12/22/2019 12:00:00 AM EDT 1.0 {application} active Mometasone Furoate 0.1 % eCW1 ([facility]) mometasone furoate 1 MG/ML Topical Cream Mometasone Fu roate 0.1 % Mometasone Furoate 0.1 % 12/22/2019 12:00:00 AM EDT 1.0 {application} suspended Mometasone Furoate 0.1 % eCW1 ([facility]) ferrous sulfate 325 MG Delayed Release O ral Tablet Ferrous Sulfate 325 (65 Fe) MG Ferrous Sulfate 325 (65 Fe) MG 10/21/2019 12:00:00 AM EDT active 1 tablet eCW1 ([facility]) 1 % 08/26/2019 12:00:00 AM EDT gel [...] 12:00:00 AM EDT active as directed eCW1 ([facility]) ezetimibe 10 MG Oral Tablet EZETIMIBE 08/26/2019 12:00:00 AM EDT table t 90 TAKE ONE TABLET BY MOUTH EVERY DAY TAKE ONE TABLET BY MOUTH EVERY DAY SOLD: 03/19/2020 [facility] Diclofenac Sodium 0.01 MG/MG Topical Gel [Voltaren] Voltaren 1 % Voltaren 1 % 08/26/2019 12:00:00 AM EDT active as directed eCW1 ([facility]) Diclofenac Sodium 0.01 MG/MG Topical Gel [Voltaren] Voltaren 1 % Voltaren 1 % 08/26/2019 12:00:00 AM EDT active as directed eCW1 ([facility]) ezetimibe 10 MG Oral Tablet EZETIMIBE 08/26/2019 [...] SPRAYS IN EACH NOSTRIL DAILY SOLD: 08/13/2019 [facility] 50 mcg/actuation 08/11/2019 12:00:00 AM EST spray,suspension 32 SPRAY TWO SPRAYS IN EACH NOSTRIL DAILY SPRAY TWO SPRAYS IN EACH NOSTRIL DAILY SOLD: 11/24/2019 [facility] Fluticasone Propionate Fluticasone Propionate 08/11/2019 12:00:[address] active MEDENT ([facility], ) 10 mg 03/12/2019 12:00:00 AM EDT [...] type / Coverage type Policy ID Covered alliance party ID Covered alliance party's relationship to cota Policy Cota Plan Information [facility] OPTIONS [id number] SP [id number] MEDICARE [id number] SP [id number] [id number] [facility] OPTIONS [id number] S [id number] [facility] MED[facility]ISION [id number] S [id number] [place] [id number] S [id number] Medicare Part B [facility] Other 0 Se lf 0 [facility] MEDIC[facility] DIVISION [id number] S [id number] [place]IC[place] [id number] S [id number] AARP HEALTH CARE OPTIONS [id number] S [id number] AARP O [id number] S [id number] MEDICARE C [id number] S [id number] EXCELLUS BCBS B [id number] S [id number] AAR HEALTH CARE OPTIONS [id number] SP [id number] MEDICARE [id number] SP [id number] [id number] ANSI-Commercial [id number] ANSI-Medicare Part B [id number] ANSI-Medicare Part B [id number] ANSI-Medicare Part B [id number] ANSI-Medicare Part B [id number] ANSI-Commercial [id number] ANSI-Medicare Part B [id number] ANSI-Medicare Part B [id number] ANSI-Commercial [id number] Aarp Medigap Part B [id number] Self [id number] [place] Primary [id number] Self [id number] Aarp Medigap Part B [id number] Self [id number] [place] Medicare Primary [id number] Self [id number] ANSI-Commercial [id number] ANSI-Medicare Part B [id number] ANSI-Medicare Part B [id number] ANSI-Medicare Part B [id number] ANSI-Commercial [id number] ANSI-Medicare Part B [id number] MEDICARE BLUE PPO 306 [id number] SP [id number] Aarp Medigap Part B [id number] Self [id number] Excell[employer] BCBS Medigap Part B [id number] Self [id number] [facility] Medicare Commercial [id number] Self [id number] MEDICARE BLUE PPO 306 [id number] SP [id number] EXCELLUS MEDICARE BLUE PPO G [id number] Self [id number] ANSI-Medicare Part B [id number] ANSI-Medicare Part B [id number] MEDICARE BLUE PPO 306 [id number] SP [id number] MEDICARE BLUE PPO 306 [id number] SP [id number] Excellus BCBS Medigap Part B [id number] Self [id number] ANSI-Medicare Part B [id number] ANSI-Medicare Part B [id number] ANSI-Medicare Part B [id number] Health Care Medigap Part B [id number] Self [id number] [place] Medigap Part B [id number] Self [id number] MVP (Medicare) Medigap Part B [id number] Self [id number] [facility] Medigap Part B [id number] Self [id number] [employer]Preferred CR Medigap Part B [id number] Self [id number] [facility] Commercial [id number] Self [id number] Unitedhealthcare Medicare Commercial [id number] Self [id number] ANSI-Medicare Part B [id number] ANSI-Medicare Part B [id number] MEDICARE COMPLETE [id number] SP [id number] MVP Health Care Medigap Part B [id number] Self [id number] [place] Medigap Part B [id number] Self [id number] MVP (Medicare) Medigap Part B [id number] Self [id number] MEDICARE COMPLETE [id number] SP [id number] MEDICARE COMPLETE [id number] SP [id number] [facility]na [facility]/Medicare Commercial [id number] Self [id number] MEDICARE COMPLETE [id number] SP [id number] MEDICARE COMPLETE [id number] SP [id number] MEDICARE COMPLETE-[facility] O [id number] S [id number] [employer] Commercial Self MVP GOLD [id number] SP [id number] TODAYS OPTIONS [id number] SP [id number] Problems, Conditions, and Diagnoses Code Display Name Description Problem Type Effective Dates Data Source(s) C44.222 [id number] Squamous cell carcin dylan of skin of right ear and external auricular canal Problem 06/23/2020 12:00:00 AM EST eCW1 ([facility]) C44.292 [id number] Other specified mirza gnant neoplasm of skin of right ear and external auricular canal Problem 06/23/2020 12:00:00 AM EST eCW1 ([facility]) Z00.00 [id number] Medicare annual wellness visit, subsequen t Problem 05/25/2020 12:00:00 AM EST eCW1 ([facility]) V43.1 Pseudophakia Pseudophakia Problem 02/23/2020 12:00:00 A M EDT VALERIA (Ajay You MD [facility]) [id number] Pseudophakic - Right Eye Pseudophakic - Right Eye Prob abel 01/18/2020 12:00:00 AM EDT [facility] (Ajay You MD [facility]) 379.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 Vitreous Disorders Deg eneration Problem 12/31/2019 12:00:00 AM EDT [facility] (Ajay You MD [facility]) 375.15 Dry Eye Syndrome Dry Eye Syndrome Problem 12/31/2019 12 :00:00 AM EDT [facility]IA (Ajay You MD [facility]) 366.16 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 m 12/31/2019 12:00:00 AM EDT - 02/23/2020 12:00:00 AM EDT [facility]IA (Ajay You MD [facility]) L81.4 423698788 Lentigines Problem 12/22/2019 12:00:00 AM ED T eCW1 ([facility]) L57.0 072704511 Actinic keratoses Problem 12/22/2019 12:00:0 0 AM EDT eCW1 ([facility]) D22.30 595012321 Melanocytic nevi of face Problem 12/22/2019 12:00:00 AM EDT eCW1 ([facility]) L30.9 231502562 Dermatitis of external ear Problem 0 12:00:00 AM EDT eCW1 ([facility]) L82.1 [id number] SK (seborrheic keratosis) Problem 12/22/2019 12:00:00 AM EDT eCW1 ([facility]) D22.5 551277634 Melanocytic nevi of trunk Problem 12/22/2019 12:00:00 AM EDT eCW1 ([facility]) D22.72 192928237 Melanocytic nevi of left lower limb, incl uding hip Problem 12/22/2019 12:00:00 AM EDT eCW1 ([facility]) D22.71 136573782 Melanocytic nevi of right lower limb, inc luding hip Problem 12/22/2019 12:00:00 AM EDT eCW1 ([facility]) L85.3 18195453 Xerosis cutis Problem 12/22/2019 12:00:00 AM EDT eCW1 ([facility]) D22.62 606045029 Melanocytic nevi of left upper l imb, including shoulder Problem 12/22/2019 12:00:00 AM EDT eCW1 ([facility]) D22.61 814631045 Melanocytic nevi of right upper limb, including shoulder Problem 12/22/2019 12:00:00 AM EDT eCW1 ([facility]) M17.10 477234785 Arthritis of knee Problem 08/26/2019 12:00:0 0 AM EDT eCW1 ([facility]) M46.1 58695764 Sacroiliac inflammation Problem 08/26/2019 1 2:00:00 AM EDT eCW1 ([facility]) M46.1 25622518 Sacroiliac inflammation Problem 08/26/2019 1 2:00:00 AM EDT eCW1 ([facility]) M17.10 835837379 Arthritis of knee Problem 08/26/2019 12:00:0 0 AM EDT eCW1 ([facility]) H25.12 Age-related nuclear cataract, left eye A [...] Surgeries/Procedures Procedure Description Date Indications Data Source(s) LARYNGOSCOPY FLEXIBLE FIBEROPTIC DIAGNOSTIC 05/24/2020 12:00:00 AM EST MEDENT ([facility]) Immunization: Boostrix 0.5mL IM (TDAP) 05/23/2020 12:0 0:00 AM EST eCW1 ([facility]) ARTHROCENTESIS ASPIR&/INJECTION MAJOR JT/BURSA 020 12:00:00 AM EST MEDENT ([facility]) ECHO TTHRC R-T 2D W/WOM-MODE COMPL SPEC&COLR DOP 05/02 12:00:00 AM EST MEDENT ([facility]) ARTHROCENTESIS ASPIR&/INJECTION MAJOR JT/BURSA 12:00:00 AM EST MEDENT ([facility]) ARTHROCENTESIS ASPIR&/INJECTION MAJOR JT/BURSA 12:00:00 AM EST MEDENT ([facility]) Immunization: Flublok Quadrivalent (18 years & older) 0.5mL IM (Influenza) 04/05/2020 12:00:00 AM EDT eCW1 ([facility]) MRI Lower Extremity Any Joint 02/29/2020 12:00:00 AM E DT MEDENT ([facility]) MRI Lower Extremity Any Joint 02/29/2020 12:00:00 AM E DT MEDENT ([facility]) Surgical / procedural history : Knee-1969 Surgical / p rocedural history : Knee-196902/23/2020 12:00:00 AM EDT VALERIA (Frankie You MD [facility]) Extracapsular extraction of lens (procedure) History o f extracapsular cataract extraction PCIOL OD by Dr. Burns 01/10/2020 ~PCIOL OS by Dr. Burns 01/20/2020 02/23/2020 12:00:00 AM EDT VALERIA (Frankie You MD [facility]) ARTHROCENTESIS ASPIR&/INJECTION MAJOR JT/BURSA 12:00:00 AM EDT MEDENT ([facility]) RADIOLOGIC EXAM KNEE COMPLETE 4/MORE VIEWS 02/17/2020 12:00:00 AM EDT MEDENT ([facility]) LARYNGOSCOPY FLEXIBLE FIBEROPTIC DIAGNOSTIC 02/02/2020 12:00:00 AM EDT MEDENT ([facility], ) Extracapsular cataract removal with intr aocular lens implant (Left side, Related procedure/service by same physician during Post Op) Extracapsular cataract removal with intraocular lens implant (Left side, Related procedure/service by same physician during Post Op) 01/24/2020 12:00:00 AM EDT GR MALATHINSETH (Ajay You MD [facility]) OPH BMTRY PRTL COHER INTRFRMTRY IO LENS PWR MARISSA Ophtha lmic biometry - IOL Master with IOL calculation (Professional Comp., Left side) 01/18/2020 12:00:00 AM EDT [facility]ERIA (Ajay You MD [facility]) Extracapsular cataract removal with intraocular lens i mplant (Right Side) Extracapsular cataract removal with intraocular lens implant (Right Side) 01/10/2020 12:00:00 AM EDT VAL[facility]IA (Ajay ramon MD [facility]) Ophthalmic biometry - IOL Master with IO L calculation (WAIVER OF LIABILITY ON FILE (ABN)) Ophthalmic biometry - IOL Master with IO L calculation (WAIVER OF LIABILITY ON FILE (ABN)) 01/03/2020 12:00:00 AM EDT [facility]IA (Ajay You MD [facility]) Intermediate Eye Exam Established Patient (Signi/Sep E miko. & Man.) Intermediate Eye Exam Established Patient (Signi/Sep Eval. & Man.) 01/03/2020 12:00:00 AM EDT [facility]IA (Ajay You MD [facility]) Medical Eye Exam Medical Eye Exam 12/31/2019 12:00:00 AM EDT [facility]ERIA (Ajay You MD [facility]) Office Visit, Est Pt., Level 4 PC 10/21/2019 12:00:00 AM EDT eCW1 ([facility]) Office Visit, Est Pt., Level 2 FC 10/20/2019 12:00:00 AM EDT eCW1 ([facility]) LARYNGOSCOPY FLEXIBLE FIBEROPTIC DIAGNOSTIC 10/18/2019 12:00:00 AM EDT MEDENT ([facility], ) URINE-NO MICRO 08/26/2019 12:00:00 AM EDT eCW1 ([facility]) VENIPUNCT, ROUTINE* 08/23/2019 12:00:00 AM EDT eCW1 ([facility]) LARYNGOSCOPY FLEXIBLE FIBEROPTIC DIAGNOSTIC 08/11/2019 12:00:00 AM EST MEDENT ([facility], ) LARYNGOSCOPY FLEXIBLE FIBEROPTIC DIAGNOSTIC 06/23/2019 12:00:00 AM EST MED[facility] ([facility], ) Results ID Date Data Source [id number] 06/28/2020 12:29:00 PM EST MEDENT ([facility] ) Name Value Range Interpretation Code Description Data Melony rce(s) Supporting Document(s) Surgical pathology study Laboratory test result [facility] ([facility], ) <content>FINAL DIAGNOSIS</content>
< content></content>
<content>A-Right pinna, posterior surface mass:</content>
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
<content>differentiated, excised.</content>
<content></content>
<content>B-Left vocal cord, biopsy:</content>
<content>At least squamous cell carcinoma in situ. (See comment).</content>
<content></content>
<content></content>
<content>Comment: H&E sections show superficial fragments of squamous mucosa with</content>
<content>carcinoma in situ. No significant submucosa is apparent.</content>
<content>06/29/2020 - 1338</content>
<content></content>
<content>CLINICAL DIAGNOSIS</content>
<content></content>
<content>Dysphonia, history of laryngeal cancer, right ear skin lesion</content>
<content>06/28/2020 - 1436</content>
<content></content>
<content>GROSS DIAGNOSIS</content>
<content></content>
<content>A - Received in formalin labeled "right pinna posterior surface mass"</content>
<content>and consists of a fragment of tissue, 3 x 1.5 x 1.0 cm. The surgeon has</content>< br/><content>oriented the specimen as follows; one suture superior, two sutures</content>
<content>anterior. The specimen is inked as follows; superior half black and</content>
<content>inferior half red. All is submitted in two.</content>
<content></content>
<content>B - Received in formalin labeled "left vocal cord biopsy" and consists</content>
<content> of a fragment of tissue, 0.1 x 0.1 x 0.1 cm. All in one.</content>
<content>-OA</content>
<content>06/29/2020 - 1337</content>
<content></content>
<content>Signed MARY GRACE CHAVARRIA MD 06/29/2020 1338</content>
<content></content> ID Date Data Source [id number] 06/23/2020 11:00:00 AM EST [facility] Name Value Range Interpretation Code Description Data Melony rce(s) Supporting Document(s) SARS coronavirus 2 RNA Not Detected [facility] This lab was ordered by [facility] and reported by [facility]. ID Date Data Source [id number] 01/27/2020 07:23:00 AM T [facility] Preoperative Diagnosis:1. Visually sign ificant nuclear [...] rce(s) Supporting Document(s) ID Date Data Source [id number] 01/27/2020 07:08:00 AM [facility] Preoperative Diagnosis:1. Visually sign ificant nuclear sclerotic [...] rce(s) Supporting Document(s) ID Date Data Source [id number] 01/20/2020 02:05:00 PM EDT [facility] Name Value Range Interpretation Code Description Data Melony rce(s) Supporting Document(s) SARS-CoV-2, JEREMIAS Not Detected Not Detected [facility] Testing was performed using the arnold(R) SARS-CoV-2 test.This test was developed and its performance characteristics determinedby [facility]. This test has not been FDA cleared [...] in this assay. ID Date Data Source [id number] 01/19/2020 08:00:00 AM EDT [facility] Name Value Range Interpretation Code Description Data Melony rce(s) Supporting Document(s) SARS coronavirus 2 RNA [facility] This lab was ordered by [facility] a nd reported by [facility]. ID Date Data Source [id number] 01/20/2020 02:05:00 PM EDT [facility] Name Value Range Interpretation Code Description Data Melony rce(s) Supporting Document(s) SARS COV2 Not Detected Not Detected [facility] Testing was performed using the arnold(R) SARS-CoV-2 test.This test was developed and its performance characteristicsdetermined by [facility]. This test has not beenFDA cleared or [...] in this assay.Per formed at: [facility] [address] [id number] Director: Michelle Tate MD, Phone: [phone] ID Date Data Source [id number] 01/06/2020 04:05:00 PM EDT [facility] Name Value Range Interpretation Code Description Data Melony rce(s) Supporting Document(s) SARS-CoV-2, JEREMIAS Not Detected Not Detected [facility] Testing was performed using the arnold(R) SARS-CoV-2 test.This test was developed and its performance characteristics determinedby [facility]. This test has not been FDA cleared [...] in this assay. ID Date Data Source [id number] 01/05/2020 08:00:00 AM EDT [facility] Name Value Range Interpretation Code Description Data Melony rce(s) Supporting Document(s) SARS coronavirus 2 RNA [facility] This lab was ordered by [facility] a nd reported by [facility]. ID Date Data Source [id number] 01/06/2020 04:06:00 PM EDT [facility] Name Value Range Interpretation Code Description Data Melony rce(s) Supporting Document(s) SARS COV2 Not Detected Not Detected [facility] Testing was performed using the arnold(R) SARS-CoV-2 test.This test was developed and its performance characteristicsdetermined by [facility]. This test has not beenFDA cleared or [...] detected) result in this assay.Per formed at: RN - [facility] [address] [id number] Director: Michelle Tate MD, Phone: [phone] ID Date Data Source TOTAL IRON BINDING CAPACIT 11/18/2019 02:50:38 AM EDT eCW1 ( [facility]) Name Value Range Interpretation Code Description Data Melony rce(s) Supporting Document(s) 219 IRON (FE) eCW1 ([facility]) 315 TOTAL IRON BINDING CAPACITY eC W1 ([facility]) 69.5 PERCENT SATURATION eCW1 ([facility]) ID Date Data Source FERRITIN 11/18/2019 02:50:38 AM EDT eCW1 ([facility]) Name Value Range Interpretation Code Description Data Melony rce(s) Supporting Document(s) 46 FERRITIN eCW1 ([facility]) ID Date Data Source Reticulocyte Count [employer] 11/18/2019 02:28:49 AM EDT eCW1 ([facility]) Name Value Range Interpretation Code Description Data Melony rce(s) Supporting Document(s) 1.7 RETICULOCYTE % eCW1 ([facility]) ID Date Data Source CBC - Complete Blood Count 11/18/2019 02:28:49 AM EDT eCW1 ( [facility]) Name Value Range Interpretation Code Description Data Melony rce(s) Supporting Document(s) 5.1 WHITE BLOOD COUNT eCW1 ([facility]) 91.6 MEAN CORPUSCULAR VOLUME eCW1 [facility] [facility] 13.1 HEMOGLOBIN eCW1 ([facility]) 4.64 RED BLOOD COUNT eCW1 ([facility]) 42.5 HEMATOCRIT eCW1 ([facility]) 211 PLATELET COUNT, AUTOMATED eCW1 ([facility]) 20.6 RED CELL DISTRIBUTION WIDTH eC W1 ([facility]) 30.8 MEAN CORPUSCULAR HGB CONC eCW1 ([facility]) 28.2 MEAN CORPUSCULAR HEMOGLOBIN eC W1 ([facility]) ID Date Data Source FOLATE 10/20/2019 12:00:00 AM EDT eCW1 ([facility]) Name Value Range Interpretation Code Description Data Melony rce(s) Supporting Document(s) > 24.0 >5.4 FOLATE eCW1 ([facility]) ID Date Data Source FREE T4 & TSH PANEL 10/20/2019 12:00:00 AM EDT eCW1 ([facility]) Name Value Range Interpretation Code Description Data Melony rce(s) Supporting Document(s) 0.98 0.76-1.46 FREE T4 eCW1 ([facility]) 2.570 0.358-3.740 THYROID STIMULATING HORM ONE eCW1 ([facility]) ID Date Data Source [id number] 10/20/2019 12:00:00 AM EDT eCW1 ([facility]) Name Value Range Interpretation Code Description Data Melony rce(s) Supporting Document(s) Hemoglobin A1c/Hemoglobin.total in Blood 6.2 HEMOGLOBIN A1c eCW1 ([facility]) ID Date Data Source VITAMIN B12 LEVEL 10/20/2019 12:00:00 AM EDT eCW1 ([facility]) Name Value Range Interpretation Code Description Data Melony rce(s) Supporting Document(s) [id number] VITAMIN B12 LEVEL eCW1 ([facility]) ID Date Data Source Comprehensive Metabolic Profile (CMP) 10/20/2019 12:00:00 AM EDT eCW1 ([facility]) Name Value Range Interpretation Code Description Data Melony rce(s) Supporting Document(s) 82 70-100 GLUCOSE, FASTING eCW1 ([facility]) 12 7-18 BLOOD UREA NITROGEN eCW1 ([facility]) 0.98 0.70-1.30 CREATININE FOR GFR eCW1 ([facility]) > 60.0 >35 GLOMERULAR FILTRATION RATE eCW 1 ([facility]) 106 98-107 CHLORIDE LEVEL eCW1 ([facility]) 140 136-145 SODIUM LEVEL eCW1 ([facility]) 5.2 3.5-5.1 POTASSIUM SERUM eCW1 ([facility]) 27 21-32 CARBON DIOXIDE LEVEL eCW1 ([facility]) 55 12-78 ALT/SGPT eCW1 ([facility]) 9.9 8.8-10.2 CALCIUM LEVEL eCW1 ([facility]) 41 7-37 AST/SGOT eCW1 ([facility]) 7.6 6.4-8.2 TOTAL PROTEIN eCW1 ([facility]) 3.8 3.2-5.2 ALBUMIN eCW1 ([facility]) 0.7 0.2-1.0 BILIRUBIN,TOTAL eCW1 ([facility]) 74 45-117 ALKALINE PHOSPHATASE eCW1 ([facility]) 1.00 1.00-1.93 ALBUMIN/GLOBULIN RATIO eCW1 ([facility]) ID Date Data Source LIPID PANEL (CARDIAC RISK) 08/26/2019 12:00:00 AM EDT eCW1 ( [facility]) Name Value Range Interpretation Code Description Data Melony rce(s) Supporting Document(s) Triglyceride [Mass/volume] in Serum or Plasma by calculation 258 <150 TRIGLYCERIDES LEVEL eCW1 ([facility]) Cholesterol [Moles/volume] in Serum or Plasma 195 <200 CHOLESTEROL LEVEL eCW1 ([facility]) Cholesterol in HDL [Moles/volume] in Serum or Plasma 41 >40 HDL CHOLESTEROL eCW1 ([facility]) 154 NON-HDL-C eCW1 ([facility]) 4.756 <5 CHOLESTEROL RISK RATIO eCW1 ([facility]) Cholesterol in LDL [Mass/volume] in Serum or Plasma by calculation 102 <100 LDL CHOLESTEROL eCW1 ([facility]) Procedure Social History Code Duration Value Status Description Data Source(s ) Smoking 06/23/2020 12:00:00 AM EST Former Smoker completed Former Smoker eCW1 ([facility]) Smoking 06/23/2020 12:00:00 AM EST Former Smoker completed Former Smoker eCW1 ([facility]) Smoking 06/23/2020 12:00:00 AM EST Former Smoker completed Former Smoker eCW1 ([facility]) Smoking 06/23/2020 12:00:00 AM EST Former Smoker completed Former Smoker eCW1 ([facility]) Smoking 05/25/2020 12:00:00 AM EST Former Smoker completed Former Smoker eCW1 ([facility]) Smoking 05/23/2020 12:00:00 AM EST Former Smoker completed Former Smoker eCW1 ([facility]) Smoking 05/23/2020 12:00:00 AM EST Former Smoker completed Former Smoker eCW1 ([facility]) Smoking 05/02/2020 12:00:00 AM EST Former Smoker completed Former Smoker eCW1 ([facility]) Smoking 02/23/2020 12:33:05 PM EDT Ex-smoker (finding) [facility] ed Ex-smoker (finding) VALERIA (Ajay You MD [facility]) Smoking 12/22/2019 12:00:00 AM EDT Former Smoker completed Former Smoker eCW1 ([facility]) Smoking 12/22/2019 12:00:00 AM EDT Former Smoker completed Former Smoker eCW1 ([facility]) Smoking 12/22/2019 12:00:00 AM EDT Former Smoker completed Former Smoker eCW1 ([facility]) Vital Signs ID Date Data Source UNK Name Value Range Interpretation Code Description Data Source(s) Body surface area Derived from formula 2.21 m2 2.21 m2 MEDENT ([facility], ) Body weight 103.874 kg 103.874 kg MEDENT ([facility], ) [place] body weight 166 [lb_av] 166 [lb_av] MEDEN T ([facility], ) Body mass index (BMI) [Ratio] 32.9 kg/m2 32.9 k g/m2 MEDENT ([facility]) Body weight 229.00 [lb_av] 229.00 [lb_av] MEDEN T ([facility]) Body height 70 [in_i] 70 [in_i] [facility] ([facility]) 5'10" Diastolic blood pressure 90 mm[Hg] 90 mm[Hg] eCW1 ([facility]) Systolic blood pressure 146 mm[Hg] 146 mm[Hg] e CW1 ([facility]) Body temperature 96.8 [degF] 96.8 [degF] eCW1 ( [facility]) Respiratory rate 18 /min 18 /min eCW1 ([facility]) Heart rate 59 /min 59 /min eCW1 ([facility]) Body mass index (BMI) [Ratio] 31.71 kg/m2 31.71 kg/m2 W1 ([facility]) Body height 70 [in_i] 70 [in_i] eCW1 ([facility]) Body weight 221 [lb_av] 221 [lb_av] eCW1 ([facility]) Diastolic blood pressure 72 mm[Hg] 72 mm[Hg] eCW1 ([facility]) Systolic blood pressure 134 mm[Hg] 134 mm[Hg] e CW1 ([facility]) Body temperature 97.0 [degF] 97.0 [degF] eCW1 ( [facility]) Respiratory rate 18 /min 18 /min eCW1 ([facility]) Heart rate 65 /min 65 /min eCW1 ([facility]) Body mass index (BMI) [Ratio] 31.71 kg/m2 31.71 kg/m2 W1 ([facility]) Body height 70 [in_i] 70 [in_i] eCW1 ([facility]) Body weight 221 [lb_av] 221 [lb_av] eCW1 ([facility]) Body surface area Derived from formula 2.21 m2 2.21 m2 [facility] ([facility]) Body weight 103.874 kg 103.874 kg MEDENT ([facility]) [place] body weight 166 [lb_av] 166 [lb_av] MEDEN T ([facility]) Body mass index (BMI) [Ratio] 32.9 kg/m2 32.9 k g/m2 [facility] Body weight 229.00 [lb_av] 229.00 [lb_av] MEDEN T ([facility]) Body height 70 [in_i] 70 [in_i] [facility] 5'10" Diastolic blood pressure 84 mm[Hg] 84 mm[Hg] eCW1 ([facility]) Systolic blood pressure 158 mm[Hg] 158 mm[Hg] e CW1 ([facility]) Body temperature 98.1 [degF] 98.1 [degF] eCW1 ( [facility]) Respiratory rate 18 /min 18 /min eCW1 ([facility]) Heart rate 68 /min 68 /min eCW1 ([facility]) Body mass index (BMI) [Ratio] 31.71 kg/m2 31.71 kg/m2 eCW1 ([facility]) Body height 70 [in_i] 70 [in_i] eCW1 ([facility]) Body weight 221 [lb_av] 221 [lb_av] eCW1 ([facility]) Body mass index (BMI) [Ratio] 33.2 kg/m2 33.2 k g/m2 MEDENT ([facility] ) Body weight 218.31 [lb_av] 218.31 [lb_av] MEDEN T ([facility] ) Body height 68 [in_i] 68 [in_i] MEDENT ([facility] ) 5'8" Body temperature 97.5 [degF] 97.5 [degF] MEDENT ([facility] ) Body weight 102.287 kg 102.287 kg MEDENT ([facility]) Body mass index (BMI) [Ratio] 32.4 kg/m2 32.4 k g/m2 MEDENT ([facility]) Heart rate 62 /min 62 /min MEDENT ([facility]) Diastolic blood pressure 88 mm[Hg] 88 mm[Hg] MEDENT ([facility]) Systolic blood pressure 141 mm[Hg] 141 mm[Hg] M EDENT ([facility]) Body weight 225.50 [lb_av] 225.50 [lb_av] MEDEN T ([facility]) Temp 97.6 Body height 70 [in_i] 70 [in_i] [facility] ([facility]) 5'10" Body mass index (BMI) [Ratio] 33.14 kg/m2 33.14 kg/m2 eCW1 ([facility]) Body height 70 [in_i] 70 [in_i] eCW1 ([facility]) Body weight 231 [lb_av] 231 [lb_av] eCW1 ([facility]) Diastolic blood pressure 74 mm[Hg] 74 mm[Hg] eCW1 ([facility]) Systolic blood pressure 130 mm[Hg] 130 mm[Hg] e CW1 ([facility]) Body temperature 96.6 [degF] 96.6 [degF] eCW1 ( [facility]) Respiratory rate 18 /min 18 /min eCW1 ([facility]) Heart rate 67 /min 67 /min eCW1 ([facility]) Diastolic blood pressure 72 mm[Hg] 72 mm[Hg] eCW1 ([facility]) Systolic blood pressure 130 mm[Hg] 130 mm[Hg] e CW1 ([facility]) Respiratory rate 18 /min 18 /min eCW1 ([facility]) Heart rate 66 /min 66 /min eCW1 ([facility]) Body mass index (BMI) [Ratio] 33.72 kg/m2 33.72 kg/m2 eCW1 ([facility]) Body height 70 [in_us] 70 [in_us] eCW1 ([facility]) Body weight Measured 235 [lb_av] 235 [lb_av] eC W1 ([facility]) Diastolic blood pressure 76 mm[Hg] 76 mm[Hg] eCW1 ([facility]) Systolic blood pressure 122 mm[Hg] 122 mm[Hg] e CW1 ([facility]) Body temperature 97.4 [degF] 97.4 [degF] eCW1 ( [facility]) Respiratory rate 18 /min 18 /min eCW1 ([facility]) Heart rate 72 /min 72 /min eCW1 ([facility]) Body mass index (BMI) [Ratio] 34.00 kg/m2 34.00 kg/m2 eCW1 ([facility]) Body height 70 [in_us] 70 [in_us] eCW1 ([facility]) Body weight Measured 237.0 [lb_av] 237.0 [lb_av ] eCW1 ([facility]) Body surface area Derived from formula 2.21 m2 2.21 m2 [facility] ([facility], ) Body weight 103.874 kg 103.874 kg [facility] ([facility], ) [place] body weight 166 [lb_av] 166 [lb_av] MEDEN T ([facility], ) Body mass index (BMI) [Ratio] 32.9 kg/m2 32.9 k g/m2 MEDENT ([facility], ) Body weight 229.00 [lb_av] 229.00 [lb_av] MEDEN T ([facility], ) Body height 70 [in_i] 70 [in_i] [facility] ([facility], ) 5'10" Diastolic blood pressure 74 mm[Hg] 74 mm[Hg] eCW1 ([facility]) Systolic blood pressure 128 mm[Hg] 128 mm[Hg] e CW1 ([facility]) Body temperature 97.7 [degF] 97.7 [degF] eCW1 ( [facility]) Respiratory rate 18 /min 18 /min eCW1 ([facility]) Heart rate 72 /min 72 /min eCW1 ([facility]) Body mass index (BMI) [Ratio] 33.86 kg/m2 33.86 kg/m2 eCW1 ([facility]) Body height 70 [in_us] 70 [in_us] eCW1 ([facility]) Body weight Measured 236 [lb_av] 236 [lb_av] eC W1 ([facility]) Body weight 103.874 kg 103.874 kg MEDENT ([facility]) Body mass index (BMI) [Ratio] 32.9 kg/m2 32.9 k g/m2 MED[facility] ([facility]) Body weight 229.00 [lb_av] 229.00 [lb_av] MEDEN T ([facility]) Body height 70 [in_i] 70 [facility]_i[facility] Body weight 103.421 kg 103.421 kg [facility] ([facility]) Body mass index (BMI) [Ratio] 32.7 kg/m2 32.7 k g/m[facility] Body weight 228.00 [lb_av] 228.00 [lb_av] MEDEN T ([facility]) Body height 70 [in_i] 70 [in_i] MEDENT ([facility]) 5'10" Patient Treatment Plan of Care Planned Activity Planned Date Details Description Data Source (s) Zithromax Z-Robert 250 MG 05/23/2020 12:00:00 AM EST eCW1 ([facility]) Zithromax Z-Robert 250 MG 05/23/2020 12:00:00 AM EST eCW1 ([facility]) besifloxacin 6 MG/ML Ophthalmic Suspension [Besivance] 01/03/2020 12:00:00 AM EDT VALERIA (Ajay You MD [facility]) BromSite 0.075% Ophthalmic Solution 01/03/2020 12:00:00 AM EDT VALERIA (Ajay You MD [facility]) Inveltys 1% Ophthalmic Suspension 01/03/2020 12:00:00 AM EDT VALERIA (Ajay You MD [facility]) mometasone furoate 1 MG/ML Topical Cream 12/22/2019 12:00:00 AM EDT eCW1 ([facility]) mometasone furoate 1 MG/ML Topical Cream 12/22/2019 12:00:00 AM EDT eCW1 ([facility]) mometasone furoate 1 MG/ML Topical Cream 12/22/2019 12:00:00 AM EDT eCW1 ([facility]) ferrous sulfate 325 MG Delayed Release Oral Tablet 10/21/2019 12 :00:00 AM EDT eCW1 ([facility]) Diclofenac Sodium 0.01 MG/MG Topical Gel [Voltaren] 08/26/19 12:00:00 AM EDT eCW1 ([facility])
[2020-07-13] MEDS ORDERED: propofoL 200 MG/20 ML VIAL As Ordered ONE (10:20)
[2020-07-13] MEDS ORDERED: LIDOCAINE 2% 100MG/5ML SDV (FOR ANES.) As Ordered ONE (10:20)
[2020-07-13] MEDS ORDERED: dexameTHASONE 4 MG/ML 1ML VIAL (J1100 PER 1MG) As Ordered ONE (10:21)
[2020-07-13] MEDS ORDERED: fentaNYL 100 MCG/2 ML INJECTION (J3010) As Ordered ONE ×2 (10:21→14:49)
[2020-07-13] MEDS ORDERED: ROCURONIUM BROMIDE 50 MG/5 ML VIAL As Ordered ONE (10:21)
[2020-07-13] MEDS ORDERED: ONDANSETRON 4MG/2ML VIAL As Ordered ONE (10:21)
[2020-07-13] MEDS ORDERED: OXYMETAZOLINE 0.05% NASAL SPRAY (AFRIN) As Ordered ONE (11:52)
[2020-07-13] MEDS ORDERED: METHYLENE BLUE 0.5% (5MG/ML) 10 ML AMP (PROVAYBLUE) As Ordered ONE (11:52)
[2020-07-13] MEDS ORDERED: LIDOCAINE W/EPINEPHRINE 1% 20ML VIAL As Ordered ONE (11:52)
[2020-07-13] MEDS ORDERED: SUGAMMADEX SODIUM 500 MG/5 ML VIAL (BRIDION) As Ordered ONE (13:36)
[2020-07-13] MEDS ORDERED: ONDANSETRON 4MG/2ML VIAL IV PRN (14:00)
[2020-07-13] MEDS ORDERED: LR 1,000 ML IV SCH ×2 (14:00→15:00)
[2020-07-13] MEDS ORDERED: fentaNYL 100 MCG/2 ML INJECTION (J3010) IV PRN (14:00)
[2020-07-13] MEDS ORDERED: hydrALAZINE 20MG/ML 1ML VIAL (J0360 PER 20MG) As Ordered ONE (14:08)
[2020-07-13] MEDS: hydrALAZINE 20MG/ML 1ML VIAL (J0360 PER 20MG) IV SCH ×2 (14:09→14:19)
[2020-07-13 14:19] VITALS: BP 196/112
[2020-07-13] MEDS ORDERED: ePHEDrine SULFATE 25 MG/5 ML(5MG/ML) SYRINGE As Ordered ONE (14:34)
[2020-07-13] MEDS ORDERED: MIDAZOLAM INJ 2MG/2ML VIAL (J2250 PER 1MG) As Ordered ONE (14:43)
[2020-07-13] MEDS: MIDAZOLAM INJ 2MG/2ML VIAL (J2250 PER 1MG) IV PRN ×2 (14:45→14:59)
[2020-07-13] MEDS ORDERED: LABETALOL 100MG/20ML VIAL As Ordered ONE (14:48)
[2020-07-13 15:40] VITALS: BP 123/66
--- NOTE | 2020-08-09 12:22 | RO ---
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 PROCEDURE PERFORMED: Direct exploration with laryngoscopy with biopsy of the left vocal cord and CO2 laser ablation of the left vocal cord lesion. SURGEON: Milton Browning MD. DYE LINE OPERATOR: ANESTHESIA: General. 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 Underwent CO2 laser ablation. Patient has noticed worsening of the dysphonia. 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 Management options including surgery listed above have been discussed with the patient. He understood and consented to the procedure. DESCRIPTION OF PROCEDURE: Patient was identified in preoperative holding and brought to the operating room in stable condition. In the supine position on the operating table, patient received general anesthesia followed by orotracheal intubation with a laser safe endotracheal tube without incident. Patient was prepped and draped in the usual fashion for the procedure. A wet towel was placed throughout the entire head and neck region up to the upper chest region. All personnel in the operating room wore CO2 laser safe eyewear for protection. At this time, the Dedo laryngoscope was introduced and suspended to allow visualization of the glottis. A biopsy was performed from the left anterior vocal cord region. At this time, the Omni laser was brought into the field. Appropriate dissector was selected. The laser was set at 6 brice continuous mode. The entire length of the left vocal cord was then ablated using the CO2 laser. At the end of the procedure, sponge and instrument counts were correct. No complication was encountered. Estimated blood loss was less than 1 mL. General anesthesia was reversed, and the patient was extubated and brought to the recovery room in stable condition.
== END 2020-07-13 16:05 | disposition home or self-care (01) ==
LOC: M SDC 08:33
PROVIDERS: ATTEND Otolaryngology
DX: D02.0 Carcinoma in situ of larynx (principal); D64.9 Anemia, unspecified; K44.9 Diaphragmatic hernia without obstruction or gangrene; K57.92 Diverticulitis of intestine, part unspecified, without perforation or abscess without bleeding; K21.9 Gastro-esophageal reflux disease without esophagitis; N40.0 Benign prostatic hyperplasia without lower urinary tract symptoms; Z79.899 Other long term (current) drug therapy; Z88.2 Allergy status to sulfonamides
CPT/HCPCS: 31541; 88305; J0360; J1100; J2250; J2405; J3010; Q9968

== ENCOUNTER → 2020-12-20 | Outpatient (REF) | payer MEDICARE ==
[~2020-12-20] MED LIST changes: -LR 1,000 ML IV ONE; -dexameTHASONE 4 MG/ML 1ML VIAL (J1100 PER 1MG) IV ONE
[2020-12-20 16:48] LABS: BASO % 0.3 % (0.0-1.0); EOS # 0.3 10^3/uL (0.0-0.5); EOS % 4.8 % (0.0-3.0); HEMATOCRIT 47.1 % (42.0-52.0); HEMOGLOBIN 15.1 g/dl (13.5-17.5); LYMPH # 1.1 10^3/uL (1.5-5.0); MEAN CORPUSCULAR HEMOGLOBIN 32.1 pg (27.0-33.0); MEAN CORPUSCULAR HGB CONC 32.1 g/dl (32.0-36.5); MONO # 0.7 10^3/uL (0.0-0.8); NEUTROPHILS # 3.9 10^3/uL (1.5-8.5); NEUTROPHILS % 64.6 % (36.0-66.0); PLATELET COUNT, AUTOMATED 227 10^3/uL (150-450); RED BLOOD COUNT 4.71 10^6/uL (4.30-6.10)
[2020-12-20 17:24] LABS: ALT/SGPT 43 U/L (12-78); BILIRUBIN,TOTAL 0.4 MG/DL (0.2-1.0); BLOOD UREA NITROGEN 12 MG/DL (7-18); CARBON DIOXIDE LEVEL 30 MEQ/L (21-32); CHLORIDE LEVEL 105 MEQ/L (98-107); CHOLESTEROL LEVEL 215 MG/DL (<200); CHOLESTEROL RISK RATIO 4.673 (<5); CPK CREATINE PHOSPHOKINASE 184 U/L (39-308); CREATININE FOR GFR 0.91 MG/DL (0.70-1.30); FERRITIN 30 NG/ML (26-388); FREE T4 0.83 NG/DL (0.76-1.46); GLOMERULAR FILTRATION RATE > 60.0 (>35); GLUCOSE, FASTING 74 MG/DL (70-100); HDL CHOLESTEROL 46 MG/DL (>40); IRON (FE) 98 UG/DL (65-175); LDL CHOLESTEROL 126 MG/DL (<100); NON-HDL-C 169 MG/DL; PERCENT SATURATION 28.2 % (19.7-50.0); POTASSIUM SERUM 4.7 MEQ/L (3.5-5.1); SODIUM LEVEL 139 MEQ/L (136-145); TOTAL 25(OH) VITAMIN D 27.3 NG/ML (30.0-100.0); TOTAL IRON BINDING CAPACITY 347 UG/DL (250-450); TOTAL PROTEIN 7.7 GM/DL (6.4-8.2); TRIGLYCERIDES LEVEL 214 MG/DL (<150); VITAMIN B12 LEVEL 338 PG/ML
[2020-12-20 17:25] LABS: FOLATE > 24.0 NG/ML
== END ==
LOC: M SFHCADAM 14:00
PROVIDERS: ATTEND Physician Assistant
DX: H81.10 Benign paroxysmal vertigo, unspecified ear (principal); R07.89 Other chest pain; E78.2 Mixed hyperlipidemia; K76.9 Liver disease, unspecified; D64.9 Anemia, unspecified
CPT/HCPCS: 80053; 80061; 82306; 82550; 82607; 82728; 82746; 83550; 84439; 84443; 85025; G0463

== ENCOUNTER → 2021-02-02 | Outpatient (CLI) | payer MEDICARE ==
--- NOTE | 2021-02-02 12:58 | REP ---
INDICATION: RLQ ABD PAIN. COMPARISON: 11/23/2015 the latest prior a contrast-enhanced exam TECHNIQUE: Standard helical technique without intravenous or oral bowel preparatory contrast. This causes exam limitations. FINDINGS: There is no significant change in appearance of the lung bases. There is a hiatal hernia status quo. There are no pleural or pericardial effusions. The liver, gallbladder, spleen, pancreas, adrenal glands, and kidneys are essentially unchanged. There is evidence of bilateral Bosniak class 1 renal cysts.. These are, however, incompletely evaluated without intravenous contrast. There are hepatic cysts status quo. There is abdominal aortic tortuosity. There is evidence of focal ectasia or aneurysmal dilatation of the infrarenal abdominal aorta which measures 3.3 cm in its AP dimension representing a change from the prior exam and poorly imaged without intravenous contrast. No para-aortic adenopathy has developed. The bowel loops are within normal limits. There is, however, descending colon and sigmoid colon diverticulosis. The appendix is well visualized and has an unremarkable appearance. Changes seen previously in the duodenum from duodenitis have resolved. There is mild central mesenteric fibrosis. There is no evidence of a mass or adenopathy. There is no free fluid or free air. 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 Bone window technique throughout the examination shows no significant change in appearance of the osseous structures. IMPRESSION: 1. Hepatic cysts status quo. 2. Likely Bosniak class 1 simple renal cysts but incompletely evaluated without intravenous contrast. 3. 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 This is seen in limited fashion without intravenous contrast. Follow-up with CTA or MRA. 4. Colonic diverticulosis as described above. 5. Other findings as described above. <Electronically signed by Horace Sahu > 02/02/21 [id number]
== END ==
LOC: M RAD 12:12
PROVIDERS: ATTEND Family Medicine
DX: K44.9 Diaphragmatic hernia without obstruction or gangrene (principal); K76.89 Other specified diseases of liver; Q61.02 Congenital multiple renal cysts; K57.30 Diverticulosis of large intestine without perforation or abscess without bleeding; R10.31 Right lower quadrant pain
CPT/HCPCS: 74176; G0463

== ENCOUNTER → 2021-03-07 | Outpatient (REF) | payer MEDICARE | LOC: M LAB REF 13:54 | PROVIDERS: ATTEND Physician Assistant | DX: C44.622 Squamous cell carcinoma of skin of right upper limb, including shoulder (principal); D48.5 Neoplasm of uncertain behavior of skin; L57.0 Actinic keratosis; L82.1 Other seborrheic keratosis; Z12.83 Encounter for screening for malignant neoplasm of skin | CPT/HCPCS: 11102; 17111; 88305; G0463 ==

== ENCOUNTER → 2021-08-30 | Outpatient (REF) | payer MEDICARE ==
[2021-08-30 16:55] LABS: HEMATOCRIT 39.1 % (42.0-52.0); HEMOGLOBIN 12.5 g/dl (13.5-17.5); MEAN CORPUSCULAR HEMOGLOBIN 31.7 pg (27.0-33.0); MEAN CORPUSCULAR VOLUME 99.2 fl (80.0-96.0); PLATELET COUNT, AUTOMATED 223 10^3/uL (150-450); RED BLOOD COUNT 3.94 10^6/uL (4.30-6.10); WHITE BLOOD COUNT 5.9 10^3/uL (4.0-10.0)
[2021-08-30 17:27] LABS: ALBUMIN 3.6 GM/DL (3.2-5.2); ALT/SGPT 47 U/L (12-78); BILIRUBIN,TOTAL 0.6 MG/DL (0.2-1.0); BLOOD UREA NITROGEN 20 MG/DL (7-18); CARBON DIOXIDE LEVEL 29 MEQ/L (21-32); CHLORIDE LEVEL 108 MEQ/L (98-107); CHOLESTEROL LEVEL 185 MG/DL (<200); CHOLESTEROL RISK RATIO 4.625 (<5); CREATININE FOR GFR 1.01 MG/DL (0.70-1.30); GLOMERULAR FILTRATION RATE > 60.0 (>35); GLUCOSE, FASTING 89 MG/DL (70-100); HDL CHOLESTEROL 40 MG/DL (>40); LDL CHOLESTEROL 107 MG/DL (<100); NON-HDL-C 145 MG/DL; POTASSIUM SERUM 4.8 MEQ/L (3.5-5.1); SODIUM LEVEL 141 MEQ/L (136-145); TRIGLYCERIDES LEVEL 189 MG/DL (<150)
[2021-08-30 18:38] LABS: HEMOGLOBIN A1c 5.8 %
== END ==
LOC: M SFHCCAPE 09:14
PROVIDERS: ATTEND Family Medicine
DX: D64.9 Anemia, unspecified (principal); E78.2 Mixed hyperlipidemia; E74.9 Disorder of carbohydrate metabolism, unspecified; Z79.899 Other long term (current) drug therapy

== ENCOUNTER → 2021-09-11 | Outpatient (REF) | payer MEDICARE ==
[2021-09-11 13:16] LABS: PERCENT SATURATION 14.2 % (19.7-50.0)
== END ==
LOC: M SFHCADAM 10:34
PROVIDERS: ATTEND Family Medicine
DX: D50.9 Iron deficiency anemia, unspecified (principal)

== ENCOUNTER → 2021-10-15 | Outpatient (REF) | payer MEDICARE | LOC: M SFHCDERM 17:10 | PROVIDERS: ATTEND Nurse Practitioner Family | DX: D48.9 Neoplasm of uncertain behavior, unspecified (principal) ==

== ENCOUNTER → 2022-03-06 | Outpatient (REF) | payer MEDICARE ==
[~2022-03-06] MED LIST changes: +COLE625T17 PO; -COLE625TAB PO
[2022-03-06 17:32] LABS: HEMATOCRIT 36.5 % (42.0-52.0); HEMOGLOBIN 11.4 g/dl (13.5-17.5); MEAN CORPUSCULAR HEMOGLOBIN 29.8 pg (27.0-33.0); MEAN CORPUSCULAR HGB CONC 31.2 g/dl (32.0-36.5); MEAN CORPUSCULAR VOLUME 95.3 fl (80.0-96.0); RED BLOOD COUNT 3.83 10^6/uL (4.30-6.10); WHITE BLOOD COUNT 6.1 10^3/uL (4.0-10.0)
[2022-03-06 17:53] LABS: HEMOGLOBIN A1c 5.7 %
[2022-03-06 18:20] LABS: PLATELET COUNT, AUTOMATED 91 10^3/uL (150-450)
[2022-03-06 18:23] LABS: ALBUMIN 3.7 GM/DL (3.2-5.2); ALT/SGPT 27 U/L (12-78); BILIRUBIN,TOTAL 0.4 MG/DL (0.2-1.0); BLOOD UREA NITROGEN 12 MG/DL (7-18); CALCIUM LEVEL 9.8 MG/DL (8.8-10.2); CARBON DIOXIDE LEVEL 28 MEQ/L (21-32); CHLORIDE LEVEL 104 MEQ/L (98-107); CHOLESTEROL LEVEL 182 MG/DL (<200); CHOLESTEROL RISK RATIO 4.333 (<5); CREATININE FOR GFR 0.99 MG/DL (0.70-1.30); GLOMERULAR FILTRATION RATE > 60.0 (>35); GLUCOSE, FASTING 89 MG/DL (70-100); HDL CHOLESTEROL 42 MG/DL (>40); LDL CHOLESTEROL 109 MG/DL (<100); NON-HDL-C 140 MG/DL; POTASSIUM SERUM 4.7 MEQ/L (3.5-5.1); SODIUM LEVEL 135 MEQ/L (136-145); TOTAL PROTEIN 7.3 GM/DL (6.4-8.2); TRIGLYCERIDES LEVEL 153 MG/DL (<150)
== END ==
LOC: M SFHCCAPE 09:53
PROVIDERS: ATTEND Family Medicine
DX: E78.2 Mixed hyperlipidemia (principal); E74.9 Disorder of carbohydrate metabolism, unspecified; D64.9 Anemia, unspecified

== ENCOUNTER → 2022-10-09 | Outpatient (REF) | payer MEDICARE ==
[~2022-10-09] MED LIST changes: +FLUT50SP17; -FLUTISP
[2022-10-09 18:03] LABS: BASO % 0.4 % (0.0-1.0); EOS # 0.6 10^3/uL (0.0-0.5); HEMATOCRIT 35.6 % (42.0-52.0); HEMOGLOBIN 10.4 g/dl (13.5-17.5); LYMPH # 1.3 10^3/uL (1.5-5.0); LYMPH % 19.4 % (24.0-44.0); MEAN CORPUSCULAR HEMOGLOBIN 26.4 pg (27.0-33.0); MEAN CORPUSCULAR HGB CONC 29.2 g/dl (32.0-36.5); MEAN CORPUSCULAR VOLUME 90.4 fl (80.0-96.0); MONO # 0.7 10^3/uL (0.0-0.8); MONO % 10.6 % (2.0-8.0); NEUTROPHILS # 4.1 10^3/uL (1.5-8.5); NEUTROPHILS % 60.3 % (36.0-66.0); PLATELET COUNT, AUTOMATED 280 10^3/uL (150-450); RED BLOOD COUNT 3.94 10^6/uL (4.30-6.10); WHITE BLOOD COUNT 6.9 10^3/uL (4.0-10.0)
[2022-10-09 18:22] LABS: ALBUMIN 3.7 G/DL (3.2-5.2); ALKALINE PHOSPHATASE 55 U/L (46-116); ALT/SGPT 29 U/L (7.0-40); AST/SGOT 29 U/L (<34); BILIRUBIN,TOTAL 0.3 MG/DL (0.3-1.2); BLOOD UREA NITROGEN 17 MG/DL (9-23); CALCIUM LEVEL 10.3 MG/DL (8.3-10.6); CARBON DIOXIDE LEVEL 27 MMOL/L (20-31); CHLORIDE LEVEL 106 MMOL/L (98-107); CHOLESTEROL LEVEL 193 MG/DL (<200); CHOLESTEROL RISK RATIO 4.57 (<5); CREATININE FOR GFR 1.01 MG/DL (0.70-1.30); GLOMERULAR FILTRATION RATE > 60.0 (>35); GLUCOSE, FASTING 91 MG/DL (74-106); HDL CHOLESTEROL 42.2 MG/DL (>40); LDL CHOLESTEROL 105.6 MG/DL (<100); NON-HDL-C 150.8 MG/DL; POTASSIUM SERUM 5.4 MMOL/L (3.5-5.1); SODIUM LEVEL 137 MMOL/L (136-145); TOTAL PROTEIN 7.3 G/DL (5.7-8.2); TRIGLYCERIDES LEVEL 226 MG/DL (<150)
== END ==
LOC: M SFHCCLAY 09:56
PROVIDERS: ATTEND Family Medicine
DX: E78.2 Mixed hyperlipidemia (principal); D64.9 Anemia, unspecified

== ENCOUNTER → 2022-10-11 | Outpatient (REF) | payer OTHER ==
[2022-10-11 17:38] LABS: HEMATOCRIT 35.2 % (42.0-52.0); HEMOGLOBIN 10.3 g/dl (13.5-17.5); MEAN CORPUSCULAR HEMOGLOBIN 26.1 pg (27.0-33.0); MEAN CORPUSCULAR HGB CONC 29.3 g/dl (32.0-36.5); MEAN CORPUSCULAR VOLUME 89.3 fl (80.0-96.0); PLATELET COUNT, AUTOMATED 278 10^3/uL (150-450); RED BLOOD COUNT 3.94 10^6/uL (4.30-6.10); WHITE BLOOD COUNT 6.4 10^3/uL (4.0-10.0)
[2022-10-11 17:46] LABS: MAGNESIUM LEVEL 1.9 MG/DL (1.8-2.4)
[2022-10-11 17:48] LABS: IRON (FE) 18 UG/DL (65-175); PERCENT SATURATION 4.6 % (19.7-50.0); TOTAL IRON BINDING CAPACITY 393 UG/DL (250-425)
[2022-10-11 17:52] LABS: FERRITIN 7.5 NG/ML (10.5-307.3); VITAMIN B12 LEVEL 332 PG/ML (211-911)
[2022-10-11 17:53] LABS: THYROID STIMULATING HORMONE 4.075 uIU/ML (0.55-4.78)
[2022-10-11 17:54] LABS: FOLATE > 24.00 NG/ML (>5.4)
[2022-10-15 17:07] LABS: FREE KAPPA LIGHT CHAINS SERUM 25.9 mg/L (3.3-19.4); FREE LAMBDA LIGHT CHAINS SERUM 17.2 mg/L (5.7-26.3); KAPPA/LAMBDA RATIO SERUM 1.51 (0.26-1.65)
== END ==
LOC: M SFHCCLAY 08:37
PROVIDERS: ATTEND Family Medicine
DX: D50.8 Other iron deficiency anemias (principal); I49.9 Cardiac arrhythmia, unspecified; K44.9 Diaphragmatic hernia without obstruction or gangrene; R06.09 Other forms of dyspnea

== ENCOUNTER → 2022-10-11 | Outpatient (CLI) | payer OTHER | LOC: M CLY 08:49 | PROVIDERS: ATTEND Family Medicine | DX: K44.9 Diaphragmatic hernia without obstruction or gangrene (principal); R06.09 Other forms of dyspnea ==

== ENCOUNTER → 2022-11-19 | Outpatient (REF) | payer OTHER ==
[2022-11-19 16:35] LABS: HEMATOCRIT 43.8 % (42.0-52.0); HEMOGLOBIN 13.2 g/dl (13.5-17.5); MEAN CORPUSCULAR HEMOGLOBIN 28.7 pg (27.0-33.0); MEAN CORPUSCULAR HGB CONC 30.1 g/dl (32.0-36.5); MEAN CORPUSCULAR VOLUME 95.2 fl (80.0-96.0); PLATELET COUNT, AUTOMATED 220 10^3/uL (150-450); WHITE BLOOD COUNT 8.1 10^3/uL (4.0-10.0)
[2022-11-19 17:02] LABS: PERCENT SATURATION 80.5 % (19.7-50.0)
[2022-11-19 17:06] LABS: FERRITIN 35.9 NG/ML (10.5-307.3)
== END ==
LOC: M SFHCADAM 13:43
PROVIDERS: ATTEND Family Medicine
DX: D50.8 Other iron deficiency anemias (principal)

== ENCOUNTER 2023-01-01 08:26 | Day surgery (SDC) | payer OTHER ==
[~2023-01-01] VITALS: Ht 177.8 cm; Wt 100.2 kg
[~2023-01-01 08:26] MED LIST changes: +CLAR10CA3 PO; +FERR28TA PO; +NS 1,000 ML IV ONE; +OMEP1CAP73 PO
[2023-01-01] MEDS ORDERED: LIDOCAINE 2% 100MG/5ML SDV (FOR ANES.) As Ordered ONE (09:52)
[2023-01-01] MEDS ORDERED: fentaNYL 100 MCG/2 ML INJECTION As Ordered ONE (09:52)
[2023-01-01] MEDS ORDERED: propofoL 500 MG/50 ML VIAL As Ordered ONE (09:52)
[2023-01-01 10:13] VITALS: TEMP 97.7
[2023-01-01 10:31] VITALS: BP 106/51; O2SAT 95
== END 2023-01-01 10:43 | disposition home or self-care (01) ==
LOC: M SDC 08:26
PROVIDERS: ATTEND Internal Medicine Gastroenterology
DX: K64.0 First degree hemorrhoids (principal); K57.30 Diverticulosis of large intestine without perforation or abscess without bleeding; D50.9 Iron deficiency anemia, unspecified; K44.9 Diaphragmatic hernia without obstruction or gangrene; Z79.899 Other long term (current) drug therapy; Z88.2 Allergy status to sulfonamides
CPT/HCPCS: 43239; 45378; 88305; J3010

== ENCOUNTER → 2023-02-12 | Outpatient (REF) | payer OTHER ==
[~2023-02-12] MED LIST changes: -NS 1,000 ML IV ONE
[2023-02-12 18:18] LABS: HEMATOCRIT 44.2 % (42.0-52.0); HEMOGLOBIN 14.2 g/dl (13.5-17.5); MEAN CORPUSCULAR HEMOGLOBIN 31.8 pg (27.0-33.0); MEAN CORPUSCULAR HGB CONC 32.1 g/dl (32.0-36.5); MEAN CORPUSCULAR VOLUME 99.1 fl (80.0-96.0); PLATELET COUNT, AUTOMATED 214 10^3/uL (150-450); RED BLOOD COUNT 4.46 10^6/uL (4.30-6.10); WHITE BLOOD COUNT 6.6 10^3/uL (4.0-10.0)
[2023-02-12 18:52] LABS: ALBUMIN 3.7 G/DL (3.2-5.2); ALKALINE PHOSPHATASE 56 U/L (46-116); ALT/SGPT 37 U/L (7.0-40); AST/SGOT 28 U/L (<34); BILIRUBIN,TOTAL 0.5 MG/DL (0.3-1.2); BLOOD UREA NITROGEN 13 MG/DL (9-23); CALCIUM LEVEL 10.2 MG/DL (8.3-10.6); CARBON DIOXIDE LEVEL 29 MMOL/L (20-31); CHLORIDE LEVEL 104 MMOL/L (98-107); CREATININE FOR GFR 0.96 MG/DL (0.70-1.30); GLOMERULAR FILTRATION RATE > 60.0 (>35); GLUCOSE, FASTING 91 MG/DL (74-106); IRON (FE) 107 UG/DL (65-175); PERCENT SATURATION 32.6 % (19.7-50.0); SODIUM LEVEL 139 MMOL/L (136-145); TOTAL IRON BINDING CAPACITY 328 UG/DL (250-425); TOTAL PROTEIN 7.1 G/DL (5.7-8.2)
[2023-02-12 18:55] LABS: FERRITIN 38.1 NG/ML (10.5-307.3)
== END ==
LOC: M SFHCCAPE 08:16
PROVIDERS: ATTEND Physician Assistant Medical
DX: D50.9 Iron deficiency anemia, unspecified (principal); I71.40 Abdominal aortic aneurysm, without rupture, unspecified

== ENCOUNTER 2023-04-03 05:22 | Inpatient (IN) | payer OTHER ==
[~2023-04-03] VITALS: Ht 177.8 cm; Wt 101.3 kg
[~2023-04-03 05:22] MED LIST changes: +LORA-1041 PO; -LORA-674 PO
[2023-04-03] MEDS ORDERED: COMBIVENT RESPIMAT 100-20MCG INHALER 4GM INH STA (06:10)
[2023-04-03] MEDS ORDERED: ACETAMINOPHEN TAB 650MG DOSE (2X325MG) PO ONE (06:10)
[2023-04-03] MEDS ORDERED: cefTRIAXone SOD 1 GM in D5W MINI-BAG PLUS 50 ML IV ONE (06:40)
[2023-04-03] MEDS ORDERED: AZITHROMYCIN INJ 500 MG, VIAL MATE ADAPTER 1 EACH in NS 250 ML IV ONE (06:40)
[2023-04-03 06:45] LABS: ALBUMIN 3.8 G/DL (3.2-5.2); ALKALINE PHOSPHATASE 82 U/L (46-116); ALT/SGPT 44 U/L (7.0-40); AST/SGOT 39 U/L (<34); BILIRUBIN,DIRECT 0.2 MG/DL (<0.4); BILIRUBIN,TOTAL 0.6 MG/DL (0.3-1.2); BLOOD UREA NITROGEN 17 MG/DL (9-23); CARBON DIOXIDE LEVEL 29 MMOL/L (20-31); CHLORIDE LEVEL 102 MMOL/L (98-107); CK-MB VALUE MASS < 1.0 NG/ML (<3.6); CREATININE FOR GFR 0.97 MG/DL (0.70-1.30); GLOMERULAR FILTRATION RATE > 60.0 (>35); GLUCOSE, FASTING 122 MG/DL (74-106); POTASSIUM SERUM 4.5 MMOL/L (3.5-5.1); SODIUM LEVEL 139 MMOL/L (136-145); TOTAL PROTEIN 7.2 G/DL (5.7-8.2)
[2023-04-03 06:48] LABS: THYROID STIMULATING HORMONE 2.406 uIU/ML (0.55-4.78)
[2023-04-03 06:49] LABS: BASO % 0.2 % (0.0-1.0); EOS # 0.3 10^3/uL (0.0-0.5); EOS % 2.8 % (0.0-3.0); HEMATOCRIT 43.4 % (42.0-52.0); HEMOGLOBIN 13.9 g/dl (13.5-17.5); LYMPH % 9.4 % (24.0-44.0); MEAN CORPUSCULAR HEMOGLOBIN 32.8 pg (27.0-33.0); MEAN CORPUSCULAR VOLUME 102.4 fl (80.0-96.0); MONO # 0.6 10^3/uL (0.0-0.8); MONO % 6.2 % (2.0-8.0); NEUTROPHILS # 8.3 10^3/uL (1.5-8.5); PLATELET COUNT, AUTOMATED 203 10^3/uL (150-450); RED BLOOD COUNT 4.24 10^6/uL (4.30-6.10); WHITE BLOOD COUNT 10.2 10^3/uL (4.0-10.0)
[2023-04-03] MEDS ORDERED: NS 1,000 ML IV ONE (06:50)
[2023-04-03 06:56] LABS: CPK CREATINE PHOSPHOKINASE 90 U/L (46-171); MB/CK RELATIVE INDEX 1.11 (< OR =4)
[2023-04-03 06:57] LABS: PROCALCITONIN 0.06 ng/ml
[2023-04-03 07:47] LABS: APPEARANCE, URINE CLEAR (CLEAR); BACTERIA, URINE AUTO NEGATIVE (NEGATIVE); BILIRUBIN, URINE AUTO NEGATIVE (NEGATIVE); BLOOD, URINE BLOOD NEGATIVE (NEGATIVE); COLOR, URINE YELLOW (YELLOW); GLUCOSE, URINE (UA) AUTO NEGATIVE (NEGATIVE); KETONE, URINE AUTO NEGATIVE (NEGATIVE); LEUKOCYTE ESTERASE, URINE AUTO NEGATIVE (NEGATIVE); MUCUS, URINE SMALL (NEGATIVE); NITRITE, URINE AUTO NEGATIVE (NEGATIVE); PROTEIN, URINE AUTO NEGATIVE (NEGATIVE); RBC, URINE AUTO 0 /HPF (0-3); SPECIFIC GRAVITY URINE AUTO 1.013 (1.002-1.035); SQUAMOUS EPITHELIAL CELL UR AU 0 /HPF (0-6); UROBILINOGEN, URINE AUTO 0.2 mg/dL (0.0-2.0); WBC, URINE AUTO 1 /HPF (0-3)
[2023-04-03] MEDS ORDERED: OMEPRAZOLE 20MG CAP PO ONE (08:20)
[2023-04-03] MEDS ORDERED: LIDOCAINE 5% (LIDODERM) PATCH TD ONE (08:20)
[2023-04-03] MEDS ORDERED: MED REC IN PROGRESS XX SCH (09:15)
[2023-04-03] MEDS: DOXYCYCLINE HYCLATE 100MG TABLET PO SCH ×2 (09:20→20:33)
[2023-04-03] MEDS ORDERED: ASPI81TA26 PO (09:21)
[2023-04-03] MEDS ORDERED: HOME MED LIST COMPLETE! XX SCH (09:25)
[2023-04-03 10:49] LABS: INR 1.11
[2023-04-03 10:50] LABS: PARTIAL THROMBOPLASTIN TIME 25.2 SECONDS (24.8-34.2)
[2023-04-03 10:53] LABS: D-DIMER QUANT 0.84 ug/mL (<0.5)
[2023-04-03] MEDS: ENOXAPARIN 40MG/0.4ML SYRINGE (J1650 PER 10MG) SC SCH (10:55)
[2023-04-03 11:04] LABS: MAGNESIUM LEVEL 1.5 MG/DL (1.8-2.4)
[2023-04-03 11:08] LABS: FERRITIN 52.5 NG/ML (10.5-307.3)
[2023-04-03 11:13] LABS: PROCALCITONIN 0.48 ng/ml
[2023-04-03 11:24] LABS: C REACTIVE PROTEIN QUANTITATIV 2.6 MG/DL (<1.0)
[2023-04-03] MEDS ORDERED: ALBUTEROL 90 MCG/ACT 8GM HFA INHALER INH PRN (11:35)
[2023-04-03] MEDS ORDERED: REMDESIVIR 200 MG in NS 250 ML IV ONE (12:00)
[2023-04-03] MEDS: ALBUTEROL 90 MCG/ACT 8GM HFA INHALER INH SCH ×3 (12:00→19:50)
[2023-04-03] MEDS: OMEPRAZOLE 20MG CAP PO SCH (12:13)
[2023-04-03] MEDS: ASPIRIN 81MG ENTERIC TABLET PO SCH (12:24)
[2023-04-03] MEDS: LORATADINE 10 MG TAB PO SCH (12:24)
[2023-04-03] MEDS: NS 1,000 ML IV SCH ×2 (12:24→13:03)
[2023-04-03 13:28] VITALS: BP 144/77; TEMP 97.9; O2SAT 96
[2023-04-03 22:00] VITALS: BP 144/78; TEMP 98.1; O2SAT 93
[2023-04-04 05:24] VITALS: BP 139/76; TEMP 97.5; O2SAT 92
[2023-04-04 06:06] LABS: BASO % 0.1 % (0.0-1.0); LYMPH # 0.8 10^3/uL (1.5-5.0); LYMPH % 6.5 % (24.0-44.0); MEAN CORPUSCULAR HGB CONC 32.5 g/dl (32.0-36.5); MEAN CORPUSCULAR VOLUME 101.4 fl (80.0-96.0); MONO # 0.9 10^3/uL (0.0-0.8); MONO % 7.1 % (2.0-8.0); NEUTROPHILS # 10.9 10^3/uL (1.5-8.5); NEUTROPHILS % 85.8 % (36.0-66.0); PLATELET COUNT, AUTOMATED 157 10^3/uL (150-450); RED BLOOD COUNT 3.55 10^6/uL (4.30-6.10); WHITE BLOOD COUNT 12.7 10^3/uL (4.0-10.0)
[2023-04-04 06:08] LABS: HEMOGLOBIN 11.7 g/dl (13.5-17.5)
[2023-04-04] MEDS ORDERED: cefTRIAXone SOD 2 GM in D5W MINI-BAG PLUS 50 ML IV SCH (08:00)
[2023-04-04] MEDS: ALBUTEROL 90 MCG/ACT 8GM HFA INHALER INH SCH ×2 (08:11→13:09)
[2023-04-04] MEDS: ASPIRIN 81MG ENTERIC TABLET PO SCH (09:38)
[2023-04-04] MEDS: DOXYCYCLINE HYCLATE 100MG TABLET PO SCH (09:38)
[2023-04-04] MEDS: OMEPRAZOLE 20MG CAP PO SCH (09:38)
[2023-04-04] MEDS: LORATADINE 10 MG TAB PO SCH (09:38)
[2023-04-04] MEDS: ENOXAPARIN 40MG/0.4ML SYRINGE (J1650 PER 10MG) SC SCH (09:39)
[2023-04-04] MEDS ORDERED: CEFD300C42 PO (10:44)
[2023-04-04] MEDS ORDERED: NIRM1TAB6 PO (10:44)
[2023-04-04] MEDS ORDERED: ALBU6.7H6 INH (10:44)
[2023-04-04] MEDS ORDERED: BACI1CAP PO (10:44)
[2023-04-04] MEDS ORDERED: DOXY-444 PO (10:44)
[2023-04-04] MEDS ORDERED: PRED5PAK2 PO (10:49)
[2023-04-04 10:52] VITALS: O2SAT 95
[2023-04-04] MEDS ORDERED: REMDESIVIR 100 MG in NS 250 ML IV SCH (12:00)
[2023-04-05 12:08] LABS: BLOOD UREA NITROGEN 16 MG/DL (7-21); CALCIUM LEVEL 9.7 MG/DL (8.8-10.2); CARBON DIOXIDE LEVEL 22 MEQ/L (22-30); CHLORIDE LEVEL 104 MEQ/L (98-107); CREATININE FOR GFR 0.8 MG/DL (0.7-1.5); GLOMERULAR FILTRATION RATE > 60.0 (>35); GLUCOSE, FASTING 124 MG/DL; POTASSIUM SERUM 4.7 MEQ/L (3.6-5.0); SODIUM LEVEL 137 MEQ/L (134-153)
[2023-04-05 12:09] LABS: ALBUMIN 3.6 G/DL (3.9-5.0); ALKALINE PHOSPHATASE 67 U/L (40-129); ALT/SGPT 26 U/L (1-41); AST/SGOT 27 U/L (5-40); BILIRUBIN,DIRECT < 0.2 MG/DL (0.1-0.4); BILIRUBIN,TOTAL < 0.7 MG/DL (0.2-1.3)
== END 2023-04-04 14:06 | disposition home or self-care (01) | DRG 177 ==
LOC: M ED 05:22 → EDBD 05:22 → M ED INP 08:48 → ENRESERV 12:37 → M MSPAV 13:37
PROVIDERS: ADMIT General Practice; ATTEND General Practice
PROC: XW033E5 Introduction of Remdesivir Anti-infective into Peripheral Vein, Percutaneous Approach, New Technology Group 5 (ICD-10-PCS; principal; 2023-04-03)
PROC: 3E0 Administration, Physiological Systems and Anatomical Regions, Introduction (ICD-10-PCS; 2023-04-03)
DX: U07.1 COVID-19 (principal); J12.82 Pneumonia due to coronavirus disease 2019; J96.01 Acute respiratory failure with hypoxia; D50.9 Iron deficiency anemia, unspecified; M50.30 Other cervical disc degeneration, unspecified cervical region; K21.9 Gastro-esophageal reflux disease without esophagitis; E78.5 Hyperlipidemia, unspecified; K76.0 Fatty (change of) liver, not elsewhere classified; J15.69 Pneumonia due to other Gram-negative bacteria; N40.1 Benign prostatic hyperplasia with lower urinary tract symptoms; I27.20 Pulmonary hypertension, unspecified; R07.89 Other chest pain; Z87.891 Personal history of nicotine dependence; H91.93 Unspecified hearing loss, bilateral; K52.9 Noninfective gastroenteritis and colitis, unspecified; Z85.818 Personal history of malignant neoplasm of other sites of lip, oral cavity, and pharynx; Z79.82 Long term (current) use of aspirin; Z79.899 Other long term (current) drug therapy; Z88.2 Allergy status to sulfonamides

== ENCOUNTER 2023-11-24 11:35 | Emergency (ER) | payer OTHER ==
[~2023-11-24] VITALS: Ht 177.8 cm; Wt 102.3 kg
[~2023-11-24 11:35] MED LIST changes: +ALBU6.7H6 INH; +ASPI81TA26 PO; +BACI1CAP PO; +CEFD1CAP9 PO; +DOXY-440 PO; -FLUT50SP17; +FLUTISP; +NIRM1TAB6 PO; +PRED5PAK2 PO
[2023-11-24] MEDS ORDERED: IBUP-1022 PO (15:00)
[2023-11-24] MEDS ORDERED: PRED20TA PO (15:00)
[2023-11-24 15:11] VITALS: BP 146/83; TEMP 97.4; O2SAT 95
== END 2023-11-24 15:11 | disposition home or self-care (01) ==
LOC: M ED 11:35
DX: R07.82 Intercostal pain (principal); M79.81 Nontraumatic hematoma of soft tissue; K21.9 Gastro-esophageal reflux disease without esophagitis; Z88.2 Allergy status to sulfonamides; Z79.51 Long term (current) use of inhaled steroids; Z79.1 Long term (current) use of non-steroidal anti-inflammatories (NSAID); Z79.810 Long term (current) use of selective estrogen receptor modulators (SERMs); Z79.52 Long term (current) use of systemic steroids; Z79.899 Other long term (current) drug therapy

== ENCOUNTER → 2023-12-25 | Outpatient (REF) | payer OTHER ==
[~2023-12-25] MED LIST changes: +IBUP-1022 PO; +PRED20TA PO
[2023-12-25 18:58] LABS: HEMATOCRIT 45.3 % (42.0-52.0); HEMOGLOBIN 14.5 g/dl (13.5-17.5); MEAN CORPUSCULAR HEMOGLOBIN 32.4 pg (27.0-33.0); MEAN CORPUSCULAR VOLUME 101.1 fl (80.0-96.0); PLATELET COUNT, AUTOMATED 278 10^3/uL (150-450); RED BLOOD COUNT 4.48 10^6/uL (4.30-6.10); WHITE BLOOD COUNT 6.3 10^3/uL (4.0-10.0)
[2023-12-25 19:05] LABS: ALBUMIN 3.9 G/DL (3.2-5.2); ALKALINE PHOSPHATASE 65 U/L (46-116); ALT/SGPT 37 U/L (7.0-40); AST/SGOT 25 U/L (<34); BILIRUBIN,TOTAL 0.5 MG/DL (0.3-1.2); BLOOD UREA NITROGEN 14 MG/DL (9-23); CALCIUM LEVEL 10.3 MG/DL (8.3-10.6); CARBON DIOXIDE LEVEL 30 MMOL/L (20-31); CHLORIDE LEVEL 102 MMOL/L (98-107); CREATININE FOR GFR 0.91 MG/DL (0.70-1.30); GLOMERULAR FILTRATION RATE > 60.0 (>35); GLUCOSE, FASTING 79 MG/DL (74-106); IRON (FE) 111 UG/DL (65-175); PERCENT SATURATION 35.8 % (19.7-50.0); POTASSIUM SERUM 4.7 MMOL/L (3.5-5.1); SODIUM LEVEL 137 MMOL/L (136-145); TOTAL IRON BINDING CAPACITY 310 UG/DL (250-425)
[2023-12-25 19:08] LABS: FERRITIN 59.8 NG/ML (10.5-307.3)
== END ==
LOC: M SFHCADAM 14:20
PROVIDERS: ATTEND Family Medicine
DX: D50.8 Other iron deficiency anemias (principal); E74.9 Disorder of carbohydrate metabolism, unspecified

== ENCOUNTER → 2024-05-24 | Outpatient (REF) | payer OTHER ==
[2024-05-24 18:43] LABS: HEMATOCRIT 44.5 % (42.0-52.0); HEMOGLOBIN 14.6 g/dl (13.5-17.5); MEAN CORPUSCULAR HEMOGLOBIN 32.9 pg (27.0-33.0); MEAN CORPUSCULAR HGB CONC 32.8 g/dl (32.0-36.5); MEAN CORPUSCULAR VOLUME 100.2 fl (80.0-96.0); PLATELET COUNT, AUTOMATED 209 10^3/uL (150-450); RED BLOOD COUNT 4.44 10^6/uL (4.30-6.10); WHITE BLOOD COUNT 6.2 10^3/uL (4.0-10.0)
[2024-05-24 19:18] LABS: TOTAL IRON BINDING CAPACITY 325 UG/DL (250-425)
[2024-05-24 19:20] LABS: ALBUMIN 3.8 G/DL (3.2-5.2); ALKALINE PHOSPHATASE 57 U/L (40-129); ALT/SGPT 51 U/L (7.0-40); AST/SGOT 34 U/L (<34); BILIRUBIN,TOTAL 0.5 MG/DL (0.3-1.2); BLOOD UREA NITROGEN 12 MG/DL (9-23); CALCIUM LEVEL 10.9 MG/DL (8.3-10.6); CARBON DIOXIDE LEVEL 30 MMOL/L (20-31); CHLORIDE LEVEL 104 MMOL/L (98-107); CHOLESTEROL LEVEL 194 MG/DL (<200); CREATININE FOR GFR 0.88 MG/DL (0.70-1.30); FERRITIN 37.5 NG/ML (10.5-307.3); GLOMERULAR FILTRATION RATE > 60.0 (>35); GLUCOSE, FASTING 91 MG/DL (74-106); HDL CHOLESTEROL 52.4 MG/DL (>40); IRON (FE) 101 UG/DL (65-175); LDL CHOLESTEROL 110.6 MG/DL (<100); NON-HDL-C 141.6 MG/DL; PERCENT SATURATION 31.1 % (19.7-50.0); SODIUM LEVEL 140 MMOL/L (136-145); TOTAL PROTEIN 7.3 G/DL (5.7-8.2); TRIGLYCERIDES LEVEL 155 MG/DL (<150)
[2024-05-24 19:23] LABS: HEMOGLOBIN A1c 5.7 % (4.0-6.0)
== END ==
LOC: M SFHCCAPE 10:55
PROVIDERS: ATTEND Family Medicine
DX: E78.2 Mixed hyperlipidemia (principal); E74.9 Disorder of carbohydrate metabolism, unspecified; D50.9 Iron deficiency anemia, unspecified; Z79.899 Other long term (current) drug therapy

== ENCOUNTER 2024-06-10 09:48 | Inpatient (IN) | payer OTHER ==
[~2024-06-10] VITALS: Ht 177.8 cm; Wt 100.9 kg
[2024-06-10 10:42] LABS: BASO % 0.2 % (0.0-1.0); EOS % 0.1 % (0.0-3.0); HEMATOCRIT 40.7 % (42.0-52.0); HEMOGLOBIN 13.5 g/dl (13.5-17.5); LYMPH # 0.7 10^3/uL (1.5-5.0); LYMPH % 3.9 % (24.0-44.0); MEAN CORPUSCULAR HEMOGLOBIN 32.9 pg (27.0-33.0); MEAN CORPUSCULAR HGB CONC 33.2 g/dl (32.0-36.5); MEAN CORPUSCULAR VOLUME 99.3 fl (80.0-96.0); MONO # 1.2 10^3/uL (0.0-0.8); MONO % 7.3 % (2.0-8.0); NEUTROPHILS # 14.6 10^3/uL (1.5-8.5); NEUTROPHILS % 87.7 % (36.0-66.0); PLATELET COUNT, AUTOMATED 171 10^3/uL (150-450); WHITE BLOOD COUNT 16.7 10^3/uL (4.0-10.0)
[2024-06-10 11:09] LABS: ALBUMIN 3.5 G/DL (3.2-5.2); ALKALINE PHOSPHATASE 51 U/L (40-129); ALT/SGPT 37 U/L (7.0-40); AST/SGOT 31 U/L (<34); BILIRUBIN,DIRECT 0.3 MG/DL (<0.4); BILIRUBIN,TOTAL 0.9 MG/DL (0.3-1.2); BLOOD UREA NITROGEN 22 MG/DL (9-23); CALCIUM LEVEL 10.5 MG/DL (8.3-10.6); CARBON DIOXIDE LEVEL 28 MMOL/L (20-31); CHLORIDE LEVEL 103 MMOL/L (98-107); CK-MB VALUE MASS < 1.0 NG/ML (<3.6); CREATININE FOR GFR 0.91 MG/DL (0.70-1.30); GLOMERULAR FILTRATION RATE > 60.0 (>35); GLUCOSE, FASTING 125 MG/DL (74-106); POTASSIUM SERUM 4.4 MMOL/L (3.5-5.1); SODIUM LEVEL 137 MMOL/L (136-145)
[2024-06-10 11:11] LABS: THYROID STIMULATING HORMONE 0.748 uIU/ML (0.55-4.78)
[2024-06-10 11:13] LABS: CPK CREATINE PHOSPHOKINASE 137 U/L (46-171); MB/CK RELATIVE INDEX 0.72 (< OR =4)
[2024-06-10 11:31] LABS: VENOUS BASE EXCESS 1.2 (-2.0-2.0); VENOUS O2 SATURATION 58.3 % (60.0-80.0); VENOUS PARTIAL PRESSURE O2 29.7 mmHg (30.0-50.0); VENOUS STANDARD HCO3 24.5 MMOL/L; VENOUS TOTAL CO2 29.6 MMOL/L (24.0-28.0)
[2024-06-10 11:59] LABS: ETHYL ALCOHOL (ETHANOL) < 0.003 % (0.000-0.010)
[2024-06-10 12:01] LABS: SALICYLATE LEVEL < 3.0 MG/DL (<30)
[2024-06-10 12:08] LABS: OSMOLALITY SERUM 296 MOSM/KG (280-301)
[2024-06-10] MEDS ORDERED: IPRATROPIUM 0.5MG/ALBUTEROL 2.5MG INH SOL UD 3ML (DUONEB) NEB PRN ×2 (14:35→14:40)
[2024-06-10] MEDS ORDERED: cefTRIAXone SOD 1 GM in DEXTROSE 5% (D5W) ADV/MINI-BAG 50 ML IV ONE ×2 (14:35→14:40)
[2024-06-10] MEDS ORDERED: MELO7.5T35 PO (14:37)
[2024-06-10] MEDS ORDERED: LORA-243 PO (14:37)
[2024-06-10] MEDS ORDERED: cefTRIAXone SOD 2GM VIAL IM SCH (14:40)
[2024-06-10] MEDS ORDERED: HOME MED LIST COMPLETE! XX SCH (14:40)
[2024-06-10] MEDS: IPRATROPIUM 0.5MG/ALBUTEROL 2.5MG INH SOL UD 3ML (DUONEB) NEB SCH (14:54)
[2024-06-10] MEDS: AZITHROMYCIN 250MG TABLET PO ONE (15:06)
[2024-06-10] MEDS: cefTRIAXone SOD 2 GM in DEXTROSE 5% (D5W) ADV/MINI-BAG 50 ML IV SCH (15:09)
[2024-06-10 15:10] LABS: PROCALCITONIN 0.18 ng/ml
[2024-06-10 17:00] VITALS: BP 126/80; TEMP 97.7; O2SAT 93
[2024-06-10] MEDS ORDERED: traMADol 50 MG TAB PO PRN (17:00)
[2024-06-10 17:16] LABS: VITAMIN B12 LEVEL 337 PG/ML (211-911)
[2024-06-10] MEDS: ASPIRIN 81MG ENTERIC TABLET PO SCH (18:21)
[2024-06-10] MEDS: DICLOFENAC EPOLAMINE 1.3% PATCH TOP SCH (18:21)
[2024-06-10] MEDS: LACTOBACILLUS ACIDOPHILUS CAP (BACID) PO SCH (18:21)
[2024-06-10] MEDS: ACETAMINOPHEN 500 MG TAB PO SCH (18:23)
[2024-06-10 20:00] VITALS: BP 169/89; TEMP 97.7; O2SAT 94
[2024-06-10 20:30] VITALS: BP 134/72
[2024-06-11 04:00] VITALS: BP 161/85; TEMP 97.5; O2SAT 92
[2024-06-11 04:26] VITALS: BP 153/82
[2024-06-11 06:05] LABS: BASO % 0.2 % (0.0-1.0); EOS # 0.4 10^3/uL (0.0-0.5); HEMATOCRIT 38.8 % (42.0-52.0); HEMOGLOBIN 12.6 g/dl (13.5-17.5); LYMPH # 1.1 10^3/uL (1.5-5.0); LYMPH % 11.5 % (24.0-44.0); MEAN CORPUSCULAR HEMOGLOBIN 32.7 pg (27.0-33.0); MEAN CORPUSCULAR HGB CONC 32.5 g/dl (32.0-36.5); MEAN CORPUSCULAR VOLUME 100.8 fl (80.0-96.0); MONO # 0.8 10^3/uL (0.0-0.8); MONO % 8.4 % (2.0-8.0); NEUTROPHILS # 7.4 10^3/uL (1.5-8.5); NEUTROPHILS % 75.5 % (36.0-66.0); PLATELET COUNT, AUTOMATED 167 10^3/uL (150-450); RED BLOOD COUNT 3.85 10^6/uL (4.30-6.10); WHITE BLOOD COUNT 9.8 10^3/uL (4.0-10.0)
[2024-06-11 06:11] LABS: BLOOD UREA NITROGEN 19 MG/DL (9-23); CALCIUM LEVEL 10.4 MG/DL (8.3-10.6); CARBON DIOXIDE LEVEL 28 MMOL/L (20-31); CHLORIDE LEVEL 106 MMOL/L (98-107); CREATININE FOR GFR 0.91 MG/DL (0.70-1.30); GLOMERULAR FILTRATION RATE > 60.0 (>35); GLUCOSE, FASTING 117 MG/DL (74-106); POTASSIUM SERUM 4.2 MMOL/L (3.5-5.1); SODIUM LEVEL 139 MMOL/L (136-145)
[2024-06-11 06:14] LABS: TOTAL 25(OH) VITAMIN D 25.2 NG/ML (20.0-100.0)
[2024-06-11] MEDS: OMEPRAZOLE 20MG CAP PO SCH (08:39)
[2024-06-11] MEDS: EZETIMIBE 10MG TABLET (ZETIA) PO SCH (08:39)
[2024-06-11] MEDS: MELOXICAM (MOBIC) 7.5 MG TAB PO SCH (08:39)
[2024-06-11] MEDS: MULTIVITAMINS/MINERALS THERAP 1 TAB PO SCH (08:40)
[2024-06-11] MEDS: LORATADINE 10 MG TAB PO SCH (08:40)
[2024-06-11] MEDS: AZITHROMYCIN 250MG TABLET PO SCH (08:40)
[2024-06-11 08:53] VITALS: BP 149/83
[2024-06-11] MEDS: traMADol 50 MG TAB PO ONE (08:55)
[2024-06-11] MEDS: CALCIUM GLUCONATE 1,000 MG in DEXTROSE 5% (D5W) MINI-BAG PLU 100 ML IV ONE (08:56)
[2024-06-11] MEDS ORDERED: BACI1CAP PO (10:40)
[2024-06-11] MEDS ORDERED: AZIT-12 PO (10:40)
[2024-06-11] MEDS ORDERED: CEFD300C PO (10:40)
[2024-06-11 12:00] VITALS: BP 148/83; TEMP 97.3; O2SAT 92
[2024-06-11] MEDS ORDERED: cefTRIAXone SOD 2GM VIAL IV SCH (14:40)
[2024-06-11 19:50] VITALS: BP 136/69; TEMP 97.5; O2SAT 94
[2024-06-12 04:10] VITALS: BP 136/71; TEMP 97.3; O2SAT 93
[2024-06-12 05:50] LABS: BASO % 0.3 % (0.0-1.0); EOS # 0.7 10^3/uL (0.0-0.5); EOS % 11.1 % (0.0-3.0); HEMATOCRIT 36.8 % (42.0-52.0); LYMPH % 15.2 % (24.0-44.0); MEAN CORPUSCULAR HEMOGLOBIN 32.2 pg (27.0-33.0); MEAN CORPUSCULAR HGB CONC 32.6 g/dl (32.0-36.5); MEAN CORPUSCULAR VOLUME 98.7 fl (80.0-96.0); MONO # 0.8 10^3/uL (0.0-0.8); MONO % 11.8 % (2.0-8.0); NEUTROPHILS # 3.9 10^3/uL (1.5-8.5); NEUTROPHILS % 61.1 % (36.0-66.0); PLATELET COUNT, AUTOMATED 171 10^3/uL (150-450); RED BLOOD COUNT 3.73 10^6/uL (4.30-6.10); WHITE BLOOD COUNT 6.3 10^3/uL (4.0-10.0)
[2024-06-12 06:11] LABS: BLOOD UREA NITROGEN 16 MG/DL (9-23); CARBON DIOXIDE LEVEL 28 MMOL/L (20-31); CHLORIDE LEVEL 108 MMOL/L (98-107); CREATININE FOR GFR 0.84 MG/DL (0.70-1.30); GLOMERULAR FILTRATION RATE > 60.0 (>35); GLUCOSE, FASTING 107 MG/DL (74-106); POTASSIUM SERUM 4.8 MMOL/L (3.5-5.1); SODIUM LEVEL 142 MMOL/L (136-145)
[2024-06-14 19:59] LABS: URINE STREP PNEUMONIAE ANTIGEN NOT DETECTED (NOT DETECT)
== END 2024-06-12 10:16 | disposition home or self-care (01) | DRG 871 ==
LOC: M ED 09:48 → M ED INP 14:36 → M MSPAV 16:19
PROVIDERS: ADMIT General Practice; ATTEND General Practice
DX: A41.9 Sepsis, unspecified organism (principal); J15.9 Unspecified bacterial pneumonia; D50.9 Iron deficiency anemia, unspecified; M50.30 Other cervical disc degeneration, unspecified cervical region; R53.1 Weakness; E78.5 Hyperlipidemia, unspecified; I27.20 Pulmonary hypertension, unspecified; K21.9 Gastro-esophageal reflux disease without esophagitis; M85.80 Other specified disorders of bone density and structure, unspecified site; I44.0 Atrioventricular block, first degree; I44.7 Left bundle-branch block, unspecified; M75.101 Unspecified rotator cuff tear or rupture of right shoulder, not specified as traumatic; R54 Age-related physical debility; R73.03 Prediabetes; K76.0 Fatty (change of) liver, not elsewhere classified; Z66 Do not resuscitate; Z79.82 Long term (current) use of aspirin; Z79.1 Long term (current) use of non-steroidal anti-inflammatories (NSAID); Z79.899 Other long term (current) drug therapy

== ENCOUNTER → 2024-09-16 | Outpatient (REF) | payer OTHER ==
[~2024-09-16] MED LIST changes: +AZIT-12 PO; +CEFD300C PO; +LORA-243 PO; +MELO7.5T35 PO
[2024-09-16 18:16] LABS: ALBUMIN 4.1 G/DL (3.2-5.2); ALKALINE PHOSPHATASE 61 U/L (40-129); ALT/SGPT 50 U/L (7.0-40); AST/SGOT 38 U/L (<34); BILIRUBIN,TOTAL 0.5 MG/DL (0.3-1.2); BLOOD UREA NITROGEN 13 MG/DL (9-23); CALCIUM LEVEL 10.5 MG/DL (8.3-10.6); CARBON DIOXIDE LEVEL 30 MMOL/L (20-31); CHLORIDE LEVEL 103 MMOL/L (98-107); GLOMERULAR FILTRATION RATE > 60.0 (>35); GLUCOSE, FASTING 91 MG/DL (74-106); POTASSIUM SERUM 5.3 MMOL/L (3.5-5.1); SODIUM LEVEL 139 MMOL/L (136-145); TOTAL PROTEIN 7.7 G/DL (5.7-8.2)
[2024-09-16 18:20] LABS: FREE T4 1.13 NG/DL (0.89-1.76); THYROID STIMULATING HORMONE 3.294 uIU/ML (0.55-4.78); VITAMIN B12 LEVEL 407 PG/ML (211-911)
[2024-09-16 18:21] LABS: FOLATE > 24.00 NG/ML (>5.4)
[2024-09-16 18:22] LABS: HEMATOCRIT 47.1 % (42.0-52.0); HEMOGLOBIN 15.3 g/dl (13.5-17.5); MEAN CORPUSCULAR HEMOGLOBIN 32.5 pg (27.0-33.0); MEAN CORPUSCULAR HGB CONC 32.5 g/dl (32.0-36.5); PLATELET COUNT, AUTOMATED 235 10^3/uL (150-450); RED BLOOD COUNT 4.71 10^6/uL (4.30-6.10); WHITE BLOOD COUNT 10.5 10^3/uL (4.0-10.0)
[2024-09-16 18:51] LABS: HEMOGLOBIN A1c 5.6 % (4.0-6.0)
== END ==
LOC: M SFHCADAM 14:06
PROVIDERS: ATTEND Family Medicine
DX: R10.31 Right lower quadrant pain (principal); D75.89 Other specified diseases of blood and blood-forming organs; E74.9 Disorder of carbohydrate metabolism, unspecified

== ENCOUNTER → 2024-10-05 | Outpatient (CLI) | payer OTHER | LOC: M PLAIMG 09:14 | PROVIDERS: ATTEND Family Medicine | DX: R10.31 Right lower quadrant pain (principal) ==

== ENCOUNTER → 2024-11-02 | Outpatient (CLI) | payer OTHER | LOC: M CLY 14:20 | PROVIDERS: ATTEND Physician Assistant Medical | DX: R05.1 Acute cough (principal) ==

== ENCOUNTER → 2025-02-23 | Outpatient (REF) | payer OTHER ==
[~2025-02-23] MED LIST changes: -EZET10TA21 PO; +EZET10TA57 PO; -IBUP-1022 PO; +IBUP600T42 PO
[2025-02-23 19:30] LABS: CALCIUM LEVEL 10.9 MG/DL (8.3-10.6); CARBON DIOXIDE LEVEL 31.0 MMOL/L (20-31); CHLORIDE LEVEL 103.0 MMOL/L (98-107); CREATININE FOR GFR 1.07 MG/DL (0.70-1.30); GLOMERULAR FILTRATION RATE 66.3 (>35); POTASSIUM SERUM 5.3 MMOL/L (3.5-5.1); SODIUM LEVEL 140.0 MMOL/L (136-145)
== END ==
LOC: M LABDRAWC 18:08
PROVIDERS: ATTEND Physician Assistant
DX: Z01.818 Encounter for other preprocedural examination (principal); E87.5 Hyperkalemia

== ENCOUNTER → 2025-03-22 | Outpatient (REF) | payer OTHER ==
[2025-03-22 18:53] LABS: PLATELET COUNT, AUTOMATED 321 10^3/uL (150-450)
[2025-03-22 19:32] LABS: IRON (FE) 60 UG/DL (65-175)
[2025-03-22 19:33] LABS: PERCENT SATURATION 19.0 % (19.7-50.0)
[2025-03-22 19:34] LABS: FREE T4 0.99 NG/DL (0.89-1.76)
[2025-03-22 19:35] LABS: VITAMIN B12 LEVEL 372 PG/ML (211-911)
[2025-03-22 19:58] LABS: ESTIMATED AVERAGE GLUCOSE 114.0 MG/DL (60-110)
[2025-03-22 20:26] LABS: ALT/SGPT 17 U/L (7.0-40); AST/SGOT 22 U/L (<34); CALCIUM LEVEL 10.7 MG/DL (8.3-10.6); CARBON DIOXIDE LEVEL 30 MMOL/L (20-31); CHLORIDE LEVEL 100 MMOL/L (98-107); CHOLESTEROL LEVEL 191 MG/DL (<200); CHOLESTEROL RISK RATIO 4.38 (<5); CREATININE FOR GFR 0.93 MG/DL (0.70-1.30); GLOMERULAR FILTRATION RATE 78.5 (>35); LDL CHOLESTEROL 110.8 MG/DL (<100); NON-HDL-C 147.4 MG/DL; POTASSIUM SERUM 5.6 MMOL/L (3.5-5.1); SODIUM LEVEL 139 MMOL/L (136-145); TRIGLYCERIDES LEVEL 183 MG/DL (<150)
== END ==
LOC: M SFHCADAM 14:43
PROVIDERS: ATTEND Family Medicine
DX: D50.8 Other iron deficiency anemias (principal); E74.9 Disorder of carbohydrate metabolism, unspecified; Z95.828 Presence of other vascular implants and grafts; Z86.79 Personal history of other diseases of the circulatory system; I27.0 Primary pulmonary hypertension; R53.83 Other fatigue; E78.00 Pure hypercholesterolemia, unspecified